=== PATIENT | female | born 1960 | race Caucasian/White ===

== ENCOUNTER 2024-08-29 14:31 | Inpatient (IN) | payer BC ==
[2024-08-29 14:34] LABS: Glucose,Whole Blood 197 mg/dL (70-110)
--- NOTE | 2024-08-29 14:38 | ED ---
General Adult HPI - General Chief complaint: Fall Stated complaint: fall Time Seen by Provider: 08/29/24 14:32 Source: patient, EMS, RN notes reviewed Mode of arrival: EMS Limitations: no limitations - History of Present Illness Initial comments: Patient is a 63-year-old female present to the emergency department for a fall by EMS. Patient was in her kitchen when she fell. Patient believes she may have passed out. Patient does take Coumadin. Patient has been feeling a little bit weak and shaky the last couple of days. No known fever however patient complains of feeling cold. Patient did have some mild hip discomfort earlier however states that has resolved. - Related Data Home Medications Medication Instructions Recorded Confirmed Losartan Potassium 100 mg PO DAILY 08/29/24 08/29/24 Semaglutide [Ozempic] 2 mg SQ JIMENEZ 08/29/24 08/29/24 Simvastatin 40 mg PO HS 08/29/24 08/29/24 Warfarin [Coumadin] 5 mg PO DAILY 08/29/24 08/29/24 atenoloL [Tenormin] 50 mg PO DAILY 08/29/24 08/29/24 cloNIDine HCL [Catapres] 0.3 mg PO DAILY 08/29/24 08/29/24 glyBURIDE [Diabeta] 5 mg PO BID 08/29/24 08/29/24 hydrALAZINE HCL [Apresoline] 50 mg PO BID-W/MEALS 08/29/24 08/29/24 hydroCHLOROthiazide 25 mg PO DAILY 08/29/24 08/29/24 metFORMIN HCL [Glucophage] 1,000 mg PO BID-W/MEALS 08/29/24 08/29/24 traZODone HCL [Trazodone HCl] 300 mg PO HS 08/29/24 08/29/24 Allergies Allergy/AdvReac Type Severity Reaction Status Date / Time codeine Allergy Itching Verified 08/29/24 17:51 naproxen Allergy Unknown Verified 08/29/24 17:51 Review of Systems ROS Statement: Those systems with pertinent positive or pertinent negative responses have been documented in the HPI. ROS Other: All systems not noted in ROS Statement are negative. Constitutional: Denies: fever Eyes: Denies: eye pain ENT: Denies: ear pain Respiratory: Denies: cough, dyspnea Cardiovascular: Denies: chest pain Endocrine: Denies: fatigue Neurological: Reports: as per HPI. Denies: headache Past Medical History Past Medical History: Atrial Fibrillation History of Any Multi-Drug Resistant Organisms: Unobtainable Past Surgical History: Unable to Obtain Past Psychological History: Unable to Obtain Smoking Status: Unknown if ever smoked Past Alcohol Use History: Unable to Obtain Past Drug Use History: Unable to Obtain General Exam Limitations: altered mental status General appearance: alert, other (Patient is shaking.) Head exam: Present: atraumatic, normocephalic Eye exam: Present: normal appearance, PERRL, EOMI ENT exam: Present: normal oropharynx, other (Right zygomatic region with mild area of erythema and mild tenderness) Neck exam: Present: normal inspection, tenderness (Mild diffuse tenderness. C- collar is in place.) Respiratory exam: Present: normal lung sounds bilaterally Cardiovascular Exam: Present: tachycardia GI/Abdominal exam: Present: soft. Absent: tenderness Extremities exam: Present: normal inspection. Absent: pedal edema, calf tenderness Neurological exam: Present: alert, CN II-XII intact. Absent: motor sensory deficit Expanded Neurological exam: Present: protecting the airway Patient oriented to: Present: person, place. Absent: time (Patient knows the president however unable to state the month or year) Speech: Present: fluid speech Cranial nerves: EOM's Intact: Normal Sensory exam: Upper Extremity Light Touch: Normal, Lower Extremity Light Touch: Normal Motor strength exam: RUE: 5, LUE: 5, RLE: 5, LLE: 5 Eye Response: (4) open spontaneously Motor Response: (6) obeys commands Verbal Response: (4) confused conversation Psychiatric exam: Present: normal affect, normal mood Skin exam: Present: normal color Course Vital Signs 08/29/24 14:32 Temperature 98.4 F Pulse Rate 97 Respiratory 18 Rate Blood Pressure 129/109 O2 Sat by Pulse 98 Oximetry EKG Findings - EKG Results: EKG: interpreted by ERMD (Q wave V1 and V2. Nonspecific T waves.), normal axis EKG shows: tachycardia, atrial fibrillation Medical Decision Making - Medical Decision Making Was pt. sent in by a medical professional or institution (, PA, SENIOR FUNCTIONAL ANALYST, urgent care, hospital, or longterm...) When possible be specific @ -No Did you speak to anyone other than the patient for history (EMS, parent, family, police, friend...)? What history was obtained from this source @ -Family arrives later and states patient actually has been having a little bit of confusion since yesterday, prior to the fall. Did you review nursing and triage notes (agree or disagree)? Why? @ -I reviewed and agree with nursing and triage notes Were old charts reviewed (outside hosp., previous admission, EMS record, old EKG, old radiological studies, urgent care reports/EKG's, longterm records)? Report findings @ -No old charts were reviewed Differential Diagnosis (chest pain, altered mental status, abdominal pain women, abdominal pain men, vaginal bleeding, weakness, fever, dyspnea, syncope, headache, dizziness, GI bleed, back pain, seizure, CVA, palpatations, mental health, musculoskeletal)? @ -Differential Altered Mental Status: Hypoglycemia, DKA, hypercapnia, ETOH, overdose, CO poisoning, trauma, myxedema coma, HTN encephalopathy, infection, encephalitis, psychosis, intercranial hemorrhage, hepatic encephalopathy, meningitis, CVA, this is not meant to be an all-inclusive list EKG interpreted by me (3pts min.). @ -As above X-rays interpreted by me (1pt min.). @ -Chest x-ray shows no acute process. CT interpreted by me (1pt min.). @ -CT scan of the brain and cervical spine and facial bones without traumatic abnormality U/S interpreted by me (1pt. min.). @ -None done What testing was considered but not performed or refused? (CT, X-rays, U/S, labs)? Why? @ -None What meds were considered but not given or refused? Why? @ -None Did you discuss the management of the patient with other professionals (professionals i.e. , PA, SENIOR FUNCTIONAL ANALYST, lab, RT, psych nurse, social science professor, entertainment lawyer, teacher, credit administration officer, telephonic nurse case manager)? Give summary @ -Case was discussed with Dr. Zhong who will admit covering hospital call Was smoking cessation discussed for >3mins.? @ -No Was critical care preformed (if so, how long)? @ -31 minutes critical care time Were there social determinants of health that impacted care today? How? (Homelessness, low income, unemployed, alcoholism, drug addiction, transportation, low edu. Level, literacy, decrease access to med. care, snf, rehab)? @ -No Was there de-escalation of care discussed even if they declined (Discuss DNR or withdrawal of care, Hospice)? DNR status @ -No What co-morbidities impacted this encounter? (DM, HTN, Smoking, COPD, CAD, Cancer, CVA, ARF, Chemo, Hep., AIDS, mental health diagnosis, sleep apnea, morbi d obesity)? @ -Patient has history of A-fib and is on Coumadin Was patient admitted / discharged? Hospital course, mention meds given and route, prescriptions, significant lab abnormalities, going to OR and other pertinent info. @ -Patient presents with confusion. This reportedly occurred prior to the fall. Patient has no traumatic injury and therefore will not be admitted to the hospital for any trauma service. Patient has mild confusion and elevated troponin. Patient will be admitted with consults with cardiology as well as neurology. In addition patient is RVR and Cardizem drip has been started. Undiagnosed new problem with uncertain prognosis? @ -No Drug Therapy requiring intensive monitoring for toxicity (Heparin, Nitro, Insulin, Cardizem)? @ -Cardizem drip Were any procedures done? @ -No Diagnosis/symptom? @ -Altered mental status, A-fib with RVR Acute, or Chronic, or Acute on Chronic? @ -Acute, acute Uncomplicated (without systemic symptoms) or Complicated (systemic symptoms)? @ -Complicated with original concern for potential traumatic injury Side effects of treatment? @ -No Exacerbation, Progression, or Severe Exacerbation? @ -No Poses a threat to life or bodily function? How? (Chest pain, [place], [place], pneumonia, PE, COPD, DKA, ARF, appy, cholecystitis, CVA, Diverticulitis, Homicidal, Suicidal, threat to staff... and all critical care pts) @ -Threat to neurological and cardiac function - Lab Data Result diagrams: 08/29/24 14:44 08/29/24 14:44 Lab Results 08/29/24 08/29/24 08/29/24 Range/Units 14:32 14:34 14:44 WBC 11.9 H (3.8-10.6) k/uL RBC 5.85 H (3.80-5.40) m/uL Hgb 17.4 H (11.4-16.0) gm/dL Hct 54.7 H (34.0-46.0) % MCV 93.4 (80.0-100.0) fL MCH 29.8 (25.0-35.0) pg MCHC 31.9 (31.0-37.0) g/dL RDW 14.4 (11.5-15.5) % Plt Count 271 (150-450) k/uL MPV 8.2 Neutrophils % 78 % Lymphocytes % 13 % Monocytes % 7 % Eosinophils % 1 % Basophils % 0 % Neutrophils # 9.3 H (1.3-7.7) k/uL Lymphocytes # 1.6 (1.0-4.8) k/uL Monocytes # 0.8 (0-1.0) k/uL Eosinophils # 0.1 (0-0.7) k/uL Basophils # 0.0 (0-0.2) k/uL PT (10.0-12.5) sec INR (<1.2) APTT (22.0-30.0) sec Sodium (137-145) mmol/L Potassium (3.5-5.1) mmol/L Chloride (98-107) mmol/L Carbon Dioxide (22-30) mmol/L Anion Gap mmol/L BUN (7-17) mg/dL Creatinine (0.52-1.04) mg/dL Est GFR (CKD-EPI)AfAm (>60 ml/min/1.73 sqM) Est GFR (CKD-EPI)NonAf (>60 ml/min/1.73 sqM) Glucose (74-99) mg/dL POC Glucose (mg/dL) 197 H (70-110) mg/dL POC Glu Second Officer ID Jerome Santana Calcium (8.4-10.2) mg/dL Magnesium (1.6-2.3) mg/dL Total Bilirubin (0.2-1.3) mg/dL AST (14-36) U/L ALT (4-34) U/L Alkaline Phosphatase (38-126) U/L Troponin I (0.000-0.034) ng/mL Total Protein (6.3-8.2) g/dL Albumin (3.5-5.0) g/dL Urine Color Yellow Urine Appearance Cloudy H (Clear) Urine pH 7.0 (5.0-8.0) Ur Specific [place] 1.026 (1.001-1.035) Urine Protein 3+ H (Negative) Urine Glucose (UA) Negative (Negative) Urine Ketones 1+ H (Negative) Urine Blood Small H (Negative) Urine Nitrite Negative (Negative) Urine Bilirubin Negative (Negative) Urine Urobilinogen <2.0 (<2.0) mg/dL Ur Leukocyte Esterase Moderate H (Negative) Urine RBC 14 H (0-5) /hpf Urine WBC 22 H (0-5) /hpf Ur Squamous Epith Cells 18 H (0-4) /hpf Urine Bacteria Rare H (None) /hpf Urine Mucus Rare H (None) /hpf Influenza Type A (PCR) (Not Detectd) Influenza Type B (PCR) (Not Detectd) RSV (PCR) (Not Detectd) SARS-CoV-2 (PCR) (Not Detectd) 08/29/24 08/29/24 08/29/24 Range/Units 14:44 14:44 14:44 WBC (3.8-10.6) k/uL RBC (3.80-5.40) m/uL Hgb (11.4-16.0) gm/dL Hct (34.0-46.0) % MCV (80.0-100.0) fL MCH (25.0-35.0) pg MCHC (31.0-37.0) g/dL RDW (11.5-15.5) % Plt Count (150-450) k/uL MPV Neutrophils % % Lymphocytes % % Monocytes % % Eosinophils % % Basophils % % Neutrophils # (1.3-7.7) k/uL Lymphocytes # (1.0-4.8) k/uL Monocytes # (0-1.0) k/uL Eosinophils # (0-0.7) k/uL Basophils # (0-0.2) k/uL PT 27.4 H (10.0-12.5) sec INR 2.8 H (<1.2) APTT 21.0 L (22.0-30.0) sec Sodium 137 (137-145) mmol/L Potassium 3.2 L (3.5-5.1) mmol/L Chloride 98 (98-107) mmol/L Carbon Dioxide 22 (22-30) mmol/L Anion Gap 17 mmol/L BUN 31 H (7-17) mg/dL Creatinine 0.89 (0.52-1.04) mg/dL Est GFR (CKD-EPI)AfAm 80 (>60 ml/min/1.73 sqM) Est GFR (CKD-EPI)NonAf 70 (>60 ml/min/1.73 sqM) Glucose 206 H (74-99) mg/dL POC Glucose (mg/dL) (70-110) mg/dL POC Glu Second Officer ID Calcium 9.7 (8.4-10.2) mg/dL Magnesium 1.6 (1.6-2.3) mg/dL Total Bilirubin 1.2 (0.2-1.3) mg/dL AST 30 (14-36) U/L ALT 23 (4-34) U/L Alkaline Phosphatase 83 (38-126) U/L Troponin I 0.114 H* (0.000-0.034) ng/mL Total Protein 7.7 (6.3-8.2) g/dL Albumin 4.1 (3.5-5.0) g/dL Urine Color Urine Appearance (Clear) Urine pH (5.0-8.0) Ur Specific [place] (1.001-1.035) Urine Protein (Negative) Urine Glucose (UA) (Negative) Urine Ketones (Negative) Urine Blood (Negative) Urine Nitrite (Negative) Urine Bilirubin (Negative) Urine Urobilinogen (<2.0) mg/dL Ur Leukocyte Esterase (Negative) Urine RBC (0-5) /hpf Urine WBC (0-5) /hpf Ur Squamous Epith Cells (0-4) /hpf Urine Bacteria (None) /hpf Urine Mucus (None) /hpf Influenza Type A (PCR) (Not Detectd) Influenza Type B (PCR) (Not Detectd) RSV (PCR) (Not Detectd) SARS-CoV-2 (PCR) (Not Detectd) 08/29/24 Range/Units 15:40 WBC (3.8-10.6) k/uL RBC (3.80-5.40) m/uL Hgb (11.4-16.0) gm/dL Hct (34.0-46.0) % MCV (80.0-100.0) fL MCH (25.0-35.0) pg MCHC (31.0-37.0) g/dL RDW (11.5-15.5) % Plt Count (150-450) k/uL MPV Neutrophils % % Lymphocytes % % Monocytes % % Eosinophils % % Basophils % % Neutrophils # (1.3-7.7) k/uL Lymphocytes # (1.0-4.8) k/uL Monocytes # (0-1.0) k/uL Eosinophils # (0-0.7) k/uL Basophils # (0-0.2) k/uL PT (10.0-12.5) sec INR (<1.2) APTT (22.0-30.0) sec Sodium (137-145) mmol/L Potassium (3.5-5.1) mmol/L Chloride (98-107) mmol/L Carbon Dioxide (22-30) mmol/L Anion Gap mmol/L BUN (7-17) mg/dL Creatinine (0.52-1.04) mg/dL Est GFR (CKD-EPI)AfAm (>60 ml/min/1.73 sqM) Est GFR (CKD-EPI)NonAf (>60 ml/min/1.73 sqM) Glucose (74-99) mg/dL POC Glucose (mg/dL) (70-110) mg/dL POC Glu Second Officer ID Calcium (8.4-10.2) mg/dL Magnesium (1.6-2.3) mg/dL Total Bilirubin (0.2-1.3) mg/dL AST (14-36) U/L ALT (4-34) U/L Alkaline Phosphatase (38-126) U/L Troponin I (0.000-0.034) ng/mL Total Protein (6.3-8.2) g/dL Albumin (3.5-5.0) g/dL Urine Color Urine Appearance (Clear) Urine pH (5.0-8.0) Ur Specific [place] (1.001-1.035) Urine Protein (Negative) Urine Glucose (UA) (Negative) Urine Ketones (Negative) Urine Blood (Negative) Urine Nitrite (Negative) Urine Bilirubin (Negative) Urine Urobilinogen (<2.0) mg/dL Ur Leukocyte Esterase (Negative) Urine RBC (0-5) /hpf Urine WBC (0-5) /hpf Ur Squamous Epith Cells (0-4) /hpf Urine Bacteria (None) /hpf Urine Mucus (None) /hpf Influenza Type A (PCR) Not Detected (Not Detectd) Influenza Type B (PCR) Not Detected (Not Detectd) RSV (PCR) Not Detected (Not Detectd) SARS-CoV-2 (PCR) Not Detected (Not Detectd) Critical Care Time Critical Care Time: Yes Disposition Clinical Impression: Atrial fibrillation with RVR, Altered mental status Disposition: ADMITTED IP TO THIS [facility] Condition: Serious Is patient prescribed a controlled substance at d/c from ED?: No Referrals: Jane Abreu MD [Primary Care Provider] - 1-2 days Time of Disposition: 18:04
[2024-08-29 14:53] LABS: Basophils % (A) 0 %; Eosinophils # (A) 0.1 k/uL (0-0.7); Eosinophils % (A) 1 %; HCT 54.7 % (34.0-46.0); HGB 17.4 gm/dL (11.4-16.0); Lymphocytes # (A) 1.6 k/uL (1.0-4.8); Lymphocytes % (A) 13 %; MCH 29.8 pg (25.0-35.0); MCHC 31.9 g/dL (31.0-37.0); MCV 93.4 fL (80.0-100.0); Mean Platelet Volume 8.2; Monocytes # (A) 0.8 k/uL (0-1.0); Monocytes % (A) 7 %; Neutrophils # (A) 9.3 k/uL (1.3-7.7); Neutrophils % (A) 78 %; Platelet Count 271 k/uL (150-450); RBC 5.85 m/uL (3.80-5.40); RDW 14.4 % (11.5-15.5); WBC 11.9 k/uL (3.8-10.6)
--- NOTE | 2024-08-29 14:57 | CT ---
EXAMINATION TYPE: CT brain reg wo con DATE OF EXAM: 08/29/2024 COMPARISON: None CLINICAL INDICATION: Female, 63 years old with history of fall; [facility], Code coag. Fall on thinners. AMS . TECHNIQUE: CT scan of the head and cervical spine are performed without contrast. CT DLP: Combined DLP of mGycm CT CTDI: mGy Automated exposure control for dose reduction was used. Findings: Head CT: Ventricles, basal cisterns and sulci over convexities within normal limits and there is no mass, mass effect or shift of midline structures. No abnormal density is seen throughout the brain parenchyma and there is no acute intra or extra-axia l hemorrhage. Posterior fossa including the brainstem, fourth ventricle and cerebellar pontine angles are grossly n ormal. The intraorbital contents appear normal and symmetric. Visualized paranasal sinuses are well aerated. CT cervical spine: Craniovertebral junction relationships and prevertebral soft tissues are normal. The cervical vertebral segments are normal in height and alignment and there is no fracture subluxati on. The disc spaces are well-maintained in height and there is no significant degenerative disc disease. The bony cervical canal is widely patent and there is no bony encroachment of the neural foramina. The paraspinal soft tissues unremarkable. IMPRESSION: 1. Head CT: No acute bleed or mass effect. 2. CT cervical spine: No acute trauma. [facility], , 08/29/2024 2:55 PM
--- NOTE | 2024-08-29 15:01 | CT ---
EXAMINATION TYPE: CT facial bones wo con DATE OF EXAM: 08/29/2024 COMPARISON: CLINICAL INDICATION: Female, 63 years old with history of fall; [facility], Code coag. Fall on thinners. AMS . TECHNIQUE: CT scan of the sinuses is performed without contrast, axial images are obtained, coronal reformatted images are also reviewed. CT DLP: Combined DLP of 1075.[address] CTDI: mGy Automated exposure control for dose reduction was used. FINDINGS: The facial bones are intact and there is no fracture or focal intraosseous abnormality. There is a mucous retention cyst or polyp in the left maxillary sinus indicating mild chronic maxilla ry sinusitis. Remaining paranasal sinuses are well aerated. There are no air-fluid levels. The intraorbital contents are normal symmetric. The mastoid air cells and middle ear cavities are well aerated. IMPRESSION: No evidence of facial bone trauma. [facility], , 08/29/2024 2:58 PM
[2024-08-29 15:04] LABS: ALT 23 U/L (4-34); AST 30 U/L (14-36); African American GFR (CKD) 80 (>60 ml/min/1.73 sqM); Albumin 4.1 g/dL (3.5-5.0); Alkaline Phosphatase 83 U/L (38-126); Anion Gap 17 mmol/L; Blood Urea Nitrogen 31 mg/dL (7-17); Calcium 9.7 mg/dL (8.4-10.2); Carbon Dioxide 22 mmol/L (22-30); Chloride 98 mmol/L (98-107); Glucose 206 mg/dL (74-99); Magnesium 1.6 mg/dL (1.6-2.3); Non-African American GFR(CKD) 70 (>60 ml/min/1.73 sqM); Potassium 3.2 mmol/L (3.5-5.1); Sodium 137 mmol/L (137-145); Total Bilirubin 1.2 mg/dL (0.2-1.3); Total Protein 7.7 g/dL (6.3-8.2)
[2024-08-29 15:09] LABS: INR 2.8 (<1.2); Prothrombin Time 27.4 sec (10.0-12.5)
--- NOTE | 2024-08-29 15:19 | XR ---
EXAMINATION TYPE: XR chest 1V portable DATE OF EXAM: 08/29/2024 COMPARISON: NONE CLINICAL INDICATION: Female, 63 years old with history of syncope; TECHNIQUE: Single AP portable, upright view of the chest is obtained. FINDINGS: There is no focal air space opacity, pleural effusion, or pneumothorax seen. The cardiac silhouette size is upper limits of normal. Dextroconvex scoliosis centered in the mid to lower thorac ic spine is present. IMPRESSION: No acute process. [facility], , 08/29/2024 3:17 PM
--- NOTE | 2024-08-29 15:21 | XR ---
EXAMINATION TYPE: XR pelvis AP view DATE OF EXAM: 08/29/2024 3:14 PM COMPARISON: None. CLINICAL INDICATION: Female, 63 years old with history of syncope, TECHNIQUE: A single AP view of the pelvis is obtained. FINDINGS: There is no acute displaced fracture evident in the pelvis. The hip joints are symmetric and and within normal limits. Pubic symphysis is intact. Lucency from overlying bowel gas makes evalu ation slightly suboptimal. Multiple coils overlie the left pelvis likely from prior hernia repair cathie bogdan. IMPRESSION: There is no acute displaced fracture in the pelvis. [facility], , 08/29/2024 3:19 PM
[2024-08-29 16:24] LABS: Influenza A Not Detected (Not Detectd); Influenza B Not Detected (Not Detectd); RSV Not Detected (Not Detectd)
[2024-08-29 16:49] LABS: Appearance,Urine Cloudy (Clear); Bacteria,Urine Rare /hpf; Bilirubin,Urine Negative (Negative); Blood,Urine Small (Negative); Color,Urine Yellow; Glucose,Urine (UA) Negative (Negative); Ketones,Urine 1+ (Negative); Leukocyte Esterase,Urine Moderate (Negative); Mucus,Urine Rare /hpf; Nitrite,Urine Negative (Negative); Protein,Urine 3+ (Negative); RBC,Urine 14 /hpf (0-5); Specific Gravity,Urine 1.026 (1.001-1.035); Squamous Epithelial Cell,Urine 18 /hpf (0-4); Urobilinogen,Urine <2.0 mg/dL (<2.0); WBC,Urine 22 /hpf (0-5)
[2024-08-29] MEDS: DILTIAZEM 125 MG in SODIUM CHLORIDE 0.9% 100 ML IV SCH (17:49)
[2024-08-29] MEDS ORDERED: NALOXONE 0.4 MG/ML 1 ML VIAL IV PRN (18:04)
[2024-08-29] MEDS: ATORVASTATIN 20 MG TAB PO SCH (21:51)
[2024-08-29] MEDS: traZODone HCL 100 MG TAB PO SCH (21:52)
[2024-08-29] MEDS: glipiZIDE 5 MG TAB PO SCH (21:53)
[2024-08-29] MEDS: ONDANSETRON 4 MG/2 ML VIAL IVP PRN (22:37)
[2024-08-29] MEDS: ACETAMINOPHEN TAB 325 MG TAB PO PRN (22:41)
[2024-08-30 05:16] LABS: Glucose,Whole Blood 159 mg/dL (70-110)
[2024-08-30] MEDS: hydroCHLOROthiazide 25 MG TAB PO SCH (08:20)
[2024-08-30] MEDS: cloNIDine HCL 0.1 MG TAB PO SCH (08:20)
[2024-08-30] MEDS: hydrALAZINE HCL 50 MG TAB PO SCH (08:21)
[2024-08-30] MEDS: atenoloL 50 MG TAB PO SCH (08:21)
[2024-08-30] MEDS: LOSARTAN 50 MG TAB PO SCH (08:21)
[2024-08-30] MEDS: metFORMIN 500 MG TAB PO SCH (08:24)
[2024-08-30 08:28] LABS: Glucose,Whole Blood 155 mg/dL (70-110)
[2024-08-30 08:48] LABS: Basophils % (A) 0 %; Eosinophils # (A) 0.2 k/uL (0-0.7); Eosinophils % (A) 2 %; HCT 45.3 % (34.0-46.0); Hypochromasia Marked; Lymphocytes # (A) 1.5 k/uL (1.0-4.8); Lymphocytes % (A) 14 %; MCH 29.1 pg (25.0-35.0); MCHC 29.9 g/dL (31.0-37.0); MCV 97.2 fL (80.0-100.0); Mean Platelet Volume 8.1; Monocytes # (A) 0.7 k/uL (0-1.0); Monocytes % (A) 7 %; Neutrophils # (A) 8.2 k/uL (1.3-7.7); Neutrophils % (A) 76 %; Platelet Count 291 k/uL (150-450); RBC 4.65 m/uL (3.80-5.40); RDW 14.4 % (11.5-15.5); WBC 10.7 k/uL (3.8-10.6)
[2024-08-30 08:57] LABS: HGB 13.5 gm/dL (11.4-16.0)
[2024-08-30 09:20] LABS: ALT 26 U/L (4-34); AST 31 U/L (14-36); African American GFR (CKD) 82 (>60 ml/min/1.73 sqM); Albumin 3.7 g/dL (3.5-5.0); Alkaline Phosphatase 67 U/L (38-126); Anion Gap 11 mmol/L; Blood Urea Nitrogen 41 mg/dL (7-17); Calcium 8.9 mg/dL (8.4-10.2); Carbon Dioxide 27 mmol/L (22-30); Chloride 99 mmol/L (98-107); Glucose 161 mg/dL (74-99); Non-African American GFR(CKD) 71 (>60 ml/min/1.73 sqM); Potassium 3.5 mmol/L (3.5-5.1); Sodium 137 mmol/L (137-145); Total Bilirubin 1.2 mg/dL (0.2-1.3)
[2024-08-30 09:44] LABS: Glucose,Whole Blood 152 mg/dL (70-110)
[2024-08-30] MEDS ORDERED: DEXTROSE 50% SYRINGE 50 ML IVP PRN (09:48)
--- NOTE | 2024-08-30 10:08 | CT ---
EXAMINATION TYPE: CT brain wo con DATE OF EXAM: 08/30/2024 HISTORY: UTI, mental status changes yesterday, confusion this morning. Last known well x [address] DLP: 1201.6 mGycm. Automated Exposure Control for Dose Reduction was Utilized. TECHNIQUE: CT scan of the head is performed without contrast. COMPARISON: CT head one day earlier. FINDINGS: There is no acute intracranial hemorrhage or midline shift identified. There is mild diff use ventricular and sulcal prominence redemonstrated. There is mild low-attenuation in the periventr icular white matter redemonstrated. There is 1.6 cm mucous retention cyst or polyp in the inferior le ft maxillary sinus. Remainder of the paranasal sinuses are clear. Globes are intact bilaterally. IMPRESSION: No acute intracranial hemorrhage or midline shift. No significant change from one day kasandra shaffer. [facility], , 08/30/2024 10:06 AM
--- NOTE | 2024-08-30 10:24 | CT ---
EXAMINATION TYPE: CODE STROKE: CTA head neck DATE OF EXAM: 08/30/2024 10:16 AM COMPARISON: None. CLINICAL INDICATION: Female, 63 years old with history of Neuro deficit, acute, stroke suspected, UTI , mental status changes yesterday, confusion this morning. Last known well x 15 minutes ago TECHNIQUE: CTA scan is performed with axial images are obtained, coronal and sagittal reformatted soniya ges are reviewed. 3-D reconstructed images are created on an independent workstation and reviewed. [facility] images are reviewed. NASCET criteria was used in interpretation of this exam? Contrast used:65 mL of Isovue 370 without and with IV Contrast, (none if empty) Oral contrast used: (none if empty) CT DLP: 451.5 mGycm, Automated exposure control for dose reduction was used. FINDINGS: Carotid/Vascular Structures: There is a 3 vessel arch. Common carotid arteries bifurcate into internal and external carotid arteries without significant phoebe w limiting stenosis. Vertebral arteries are codominant. Internal carotid arteries and vertebral arteries are patent to the skull base. Cervical of [place]: Vertebral basilar system appears normal. Posterior cerebral vasculature is unrema rkable. Internal carotid arteries bifurcate normally into A1 and M1 segments. A2 segments are normal. The anterior communicating artery is patent. There may be some mild fusiform prominence of the anteri or communicating artery measuring 0.33 cm. The right posterior communicating artery is absent. The left posterior communicating artery is patent. IMPRESSION: 1. No flow-limiting stenosis bilateral carotid bifurcations. 2. There is some fusiform prominence of the anterior communicating artery. 3. [place] of [place] otherwise appears within normal limits [facility], , 08/30/2024 10:21 AM
[2024-08-30] MEDS: NOREPINEPHRINE 4 MG in SODIUM CHLORIDE 0.9% 250 ML IV SCH (10:26)
[2024-08-30 10:50] LABS: Glucose,Whole Blood 139 mg/dL (70-110)
--- NOTE | 2024-08-30 11:17 | P.CRDCN ---
History of Present Illness Consult date: 08/30/24 Consult reason: atrial fibrillation History of present illness: This is this is a 63-year-old female patient of Dr. TERA Ying with past medical history of hypertension, chronic atrial fibrillation, dyslipidemia, diabetes, obesity. We have been asked to evaluate the patient for atrial fibrillation. Patient presented to the hospital yesterday. According to the patient's son. She had a fall and hit her head on the stove. She lives at home with her but he is a catering truck operator and is not home very often. Earlier in the week on Monday, the son talked to her and she was having nausea and vomiting and they were going to wait 1 more day before they took her to the doctor. She was also complaining of feeling cold. She had a recent muscle tear in June and had not been that active. He also states that there was a medication she was not able to obtain over the weekend but apparently picked up on Monday. Patient's mental status seemed to be off a little bit yesterday but the son states that she seems to be much improved today. Just prior to our arrival, patient became unresponsive according to her nurse. She had been awake and alert 15 minutes prior to this episode. Her systolic blood pressure dropped down to 70. She was given fluid bolus and her systolic pressure was then 89. Blood sugar was 152. There was concern that she was staring to the left side. When she had the unresponsive episode, her son thought that she was just sleeping. Since arrival, patient has been alert and oriented except that she cannot recall the year. This continues to be the case. Patient went for for stat CT of the brain. Subsequently the systolic blood pressure was 70/36 and orders were given for Levophed and patient was to be transferred to the CCU. Patient apparently has had no complaints of chest pain and no history of CABG or stent to the heart. Son states her equilibrium has been off for about a year. Patient has been started on Cardizem drip which was discontinued. We have also discontinued clonidine and hydralazine. -EKG: Atrial fibrillation with ventricular rate of 153 bpm. -Chest x-ray: No acute process. -Pelvic x-ray: No acute fracture. -CT facial bones: No facial bone trauma. -CT brain and cervical spine: No acute bleed or mass effect. No acute trauma to the cervical spine. -Laboratory studies: WBC 11 point, INR 2.8. Sodium 137, potassium 3.2, BUN 31 creatinine 0.89. Troponins 0.114, 0.098, 0.069. Cepheid viral panel negative. -Home cardiac medications: Atenolol 50 mg daily, clonidine 0.3 mg daily, hydralazine 50 mg twice daily, hydrochlorothiazide 25 mg daily, losartan 100 mg daily, simvastatin 40 mg at bedtime, warfarin 5 mg daily. -Lexiscan Cardiolite stress test performed in the office in 2014 was normal myocardial perfusion imaging with normal ejection fraction. -Echocardiogram performed in the office in 2014 revealed normal LV size and function, moderate concentric hypertrophy. Moderate mitral regurgitation, mild to moderate tricuspid regurgitation. Review Of Systems: At the time of my exam: CONSTITUTIONAL: Denies fever or chills. HEENT: Denies blurred vision, vision changes, or eye pain. Denies hemoptysis CARDIOVASCULAR: Denies chest pain. Denies orthopnea. Denies PND. Denies palpitations RESPIRATORY: Denies shortness of breath. GASTROINTESTINAL: Denies abdominal pain. Denies nausea or vomiting. HEMATOLOGIC: Denies bleeding disorders. GENITOURINARY: Denies any blood in urine. SKIN: Denies puritis. Denies rash. Physical examination: Gen: This is a 63-year-old female in no acute distress VS: reviewed HEENT: Head is atraumatic, normocephalic. Pupils equal, round. Sclerae is anicteric. NECK: Supple. No JVD. LUNGS: Clear to auscultation. No wheezes or rhonchi. No intercostal retractions. HEART: Giller rate and rhythm. Systolic murmur. ABDOMEN: Soft No tenderness. EXTREMITIES: No pedal edema. No calf tenderness. NEUROLOGICAL: Patient is awake, alert and oriented x3. Assessment: Chronic atrial fibrillation with RVR, currently rate controlled Unresponsive episode possible CVA Fall at home with head injury Hypertension Dyslipidemia Diabetes mellitus type 2 Obesity with BMI of 30 Plan: Resume patient's home cardiac medications but hold all antihypertensive medications Hold on heparin due to possible intracranial bleed Agree with starting Levophed and transfer patient to ICU Obtain 2-D echocardiogram and Doppler study to assess cardiac structure and function Further recommendations to follow based upon clinical course Thank you kindly for this consultation. Nurse practitioner note has been reviewed, I agree with documented findings and plan of care. Patient was seen and examined. Past Medical History Past Medical History: Atrial Fibrillation History of Any Multi-Drug Resistant Organisms: Unobtainable Past Surgical History: Unable to Obtain Past Psychological History: Unable to Obtain Smoking Status: Unknown if ever smoked Past Alcohol Use History: Unable to Obtain Past Drug Use History: Unable to Obtain Medications and Allergies Home Medications Medication Instructions Recorded Confirmed Type Losartan Potassium 100 mg PO DAILY 08/29/24 08/29/24 History Semaglutide [Ozempic] 2 mg SQ JIMENEZ 08/29/24 08/29/24 History Simvastatin 40 mg PO HS 08/29/24 08/29/24 History Warfarin [Coumadin] 5 mg PO DAILY 08/29/24 08/29/24 History atenoloL [Tenormin] 50 mg PO DAILY 08/29/24 08/29/24 History cloNIDine HCL [Catapres] 0.3 mg PO DAILY 08/29/24 08/29/24 History glyBURIDE [Diabeta] 5 mg PO BID 08/29/24 08/29/24 History hydrALAZINE HCL [Apresoline] 50 mg PO BID-W/MEALS 08/29/24 08/29/24 History hydroCHLOROthiazide 25 mg PO DAILY 08/29/24 08/29/24 History metFORMIN HCL [Glucophage] 1,000 mg PO BID-W/MEALS 08/29/24 08/29/24 History traZODone HCL [Trazodone HCl] 300 mg PO HS 08/29/24 08/29/24 History Allergies Allergy/AdvReac Type Severity Reaction Status Date / Time codeine Allergy Itching Verified 08/29/24 17:51 naproxen Allergy Unknown Verified 08/29/24 17:51 Physical Exam Vitals: Vital Signs Temp Pulse Resp BP Pulse Ox 08/30/24 07:24 98.4 F 102 H 20 145/79 97 08/30/24 05:15 98.4 F 104 H 19 138/84 98 08/30/24 02:24 99 15 158/91 98 08/30/24 00:44 112 H 19 141/95 93 L 08/29/24 23:44 120 H 19 124/65 97 08/29/24 21:58 98.6 F 108 H 19 170/102 96 08/29/24 19:38 99.1 F 108 H 20 160/111 97 08/29/24 18:00 112 H 18 163/101 98 08/29/24 16:00 132 H 18 98 08/29/24 15:34 150 H 18 114/76 98 08/29/24 14:32 98.4 F 97 18 129/109 98 Intake and Output 08/29/24 08/30/24 08/30/24 22:59 06:59 14:59 Intake Total 22.25 86.5 Balance . 86.5 Intake: Intake, IV Titration 86.5 Amount Diltiazem 125 mg In 86.5 Sodium Chloride 0.9% 100 ml @ 5 MG/HR 5 mls/hr IV .Q24H [facility] Rx#:[id number] Results 08/30/24 08:34 08/30/24 08:34 Cardiac Enzymes 08/29/24 08/29/24 08/29/24 Range/Units 14:44 14:44 20:41 AST 30 (14-36) U/L Troponin I 0.114 H* 0.098 H* (0.000-0.034) ng/mL 08/30/24 Range/Units 00:14 AST (14-36) U/L Troponin I 0.069 H* (0.000-0.034) ng/mL Coagulation 08/29/24 Range/Units 14:44 PT 27.4 H (10.0-12.5) sec APTT 21.0 L (22.0-30.0) sec CBC 08/29/24 Range/Units 14:44 WBC 11.9 H (3.8-10.6) k/uL RBC 5.85 H (3.80-5.40) m/uL Hgb 17.4 H (11.4-16.0) gm/dL Hct 54.7 H (34.0-46.0) % Plt Count 271 (150-450) k/uL Comprehensive Metabolic Panel 08/29/24 Range/Units 14:44 Sodium 137 (137-145) mmol/L Potassium 3.2 L (3.5-5.1) mmol/L Chloride 98 (98-107) mmol/L Carbon Dioxide 22 (22-30) mmol/L BUN 31 H (7-17) mg/dL Creatinine 0.89 (0.52-1.04) mg/dL Glucose 206 H (74-99) mg/dL Calcium 9.7 (8.4-10.2) mg/dL AST 30 (14-36) U/L ALT 23 (4-34) U/L Alkaline Phosphatase 83 (38-126) U/L Total Protein 7.7 (6.3-8.2) g/dL Albumin 4.1 (3.5-5.0) g/dL Current Medications Generic Name Dose Route Start Last Admin Trade Name Freq PRN Reason Stop Dose Admin Acetaminophen 650 mg 08/29/24 22:24 08/29/24 22:41 Acetaminophen Tab 325 Mg Tab PO 650 mg Q6HR PRN Administration Fever and/ or Pain Atenolol 50 mg 08/30/24 09:00 Atenolol 50 Mg Tab PO DAILY [facility] Atorvastatin Calcium 20 mg 08/29/24 21:00 08/29/24 21:51 Atorvastatin 20 Mg Tab PO 20 mg HS [facility] Administration Clonidine 0.3 mg 08/30/24 09:00 Clonidine Hcl 0.1 Mg Tab PO DAILY [facility] Glipizide 5 mg 08/29/24 21:00 08/29/24 21:53 Glipizide 5 Mg Tab PO 5 mg BID [facility] Administration Hydralazine HCl 50 mg 08/30/24 07:30 Hydralazine Hcl 50 Mg Tab PO BID-W/MEALS [facility] Hydrochlorothiazide 25 mg 08/30/24 09:00 Hydrochlorothiazide 25 Mg Tab PO DAILY [facility] Diltiazem HCl 125 mg/ Sodium 125 mls @ 10 mls/hr 08/29/24 16:45 08/30/24 06:55 Chloride IV 10 mg/hr .[id number] [facility] 10 mls/hr Administration 10 MG/HR Losartan Potassium 100 mg 08/30/24 09:00 Losartan 50 Mg Tab PO DAILY [facility] Metformin HCl 1,000 mg 08/30/24 07:30 Metformin 500 Mg Tab PO BID-W/MEALS [facility] Naloxone HCl 0.2 mg 08/29/24 18:04 Naloxone 0.4 Mg/Ml 1 Ml Vial IV Q2M PRN Opioid Reversal Ondansetron HCl 4 mg 08/29/24 22:24 08/29/24 22:37 Ondansetron 4 Mg/2 Ml Vial IVP 4 mg Q6HR PRN Administration Nausea And Vomiting Trazodone HCl 300 mg 08/29/24 21:00 08/29/24 21:52 Trazodone Hcl 100 Mg Tab PO 300 mg HS SHE[facility] Administration Intake and Output 08/29/24 08/30/24 08/30/24 22:59 06:59 14:59 Intake Total . 86.5 Balance . 86.5 Intake: Intake, IV Titration 86.5 Amount Diltiazem 125 mg In 86.5 Sodium Chloride 0.9% 100 ml @ 5 MG/HR 5 mls/hr IV .Q24H [facility] Rx#:[id number] 08/29/24 14:44 08/29/24 14:44
[2024-08-30 11:52] LABS: Appearance,Urine Cloudy (Clear); Bacteria,Urine Rare /hpf; Bilirubin,Urine Negative (Negative); Blood,Urine Small (Negative); Color,Urine Yellow; Glucose,Urine (UA) Trace (Negative); Hyaline Casts,Urine 11 /lpf (0-2); Ketones,Urine Trace (Negative); Leukocyte Esterase,Urine Negative (Negative); Mucus,Urine Moderate /hpf; Nitrite,Urine Negative (Negative); Protein,Urine 3+ (Negative); RBC,Urine 5 /hpf (0-5); Squamous Epithelial Cell,Urine <1 /hpf (0-4); Urobilinogen,Urine <2.0 mg/dL (<2.0); WBC,Urine 7 /hpf (0-5)
[2024-08-30] MEDS: SODIUM CHLORIDE 0.9% 1,000 ML IV SCH (12:15)
[2024-08-30] MEDS ORDERED: Potassium Replacement Protocol 1 EACH MISC MISCELLANE PRN (12:16)
[2024-08-30] MEDS: INSULIN LISPRO (HumaLOG) 100 UNIT/ML 10 mL VL SQ SCH (12:18)
[2024-08-30] MEDS: SODIUM CHLORIDE 0.9% 500 ML 500 ML IV ONE (12:18)
--- NOTE | 2024-08-30 13:23 | P.CNPUL ---
History of Present Illness Consult date: 08/30/24 Requesting physician: Belgica Baptiste Reason for consult: other (Hypotension and ICU management) Chief complaint: Altered mental status History of present illness: This is a 63-year-old female with history of multiple medical problems including hypertension, chronic atrial fibrillation, type 2 diabetes, patient was admitted yesterday from the emergency room, she was supposed to be admitted to the cardiac floor, however patient developed hypotension and altered mental status while in the ER, hence patient was admitted to the ICU instead and I was asked to see her on consultation. The patient herself is not a great historian, however I was able to obtain most of the information from the chart. Apparently the patient had a recent fall and hit her head on the stove, and she also had episodes of nausea, and episodes of altered mental status. Son was concerned about her mental status, when she arrived to the ER, patient became unresponsive according to the nurse. Her systolic pressure at the time was in the 70s. Patient received fluid boluses in the ER, and the systolic pressure came up to 89. Her sugar was normal. Patient was noted to have some staring to the left side, patient received medications for her atrial fibrillation with RVR, she was also given Cardizem at 1 point, however her blood pressure came back down to 70/36. Then patient was placed on norepinephrine and transferred to the ICU. During my evaluation the patient was on norepinephrine at 0.02 mcg/kg/min, she had no specific complaints, however she seems to be a little confused, she did not know what city she lives in, she did not know the name of the president, and she did not know the year. But she recognized her family members at bedside and was able to state the names. Apparently the patient received earlier clonidine and hydralazine as well as Cardizem for high blood pressure, but this has been discontinued shortly before she came back to the ICU. Her EKG showed atrial fibrillation with RVR rate of 150 chest x-ray showed no evidence of active disease CT of the brain and cervical spine was basically unremarkable. Her labs showed relatively normal electrolytes except for low potassium of 3.2 troponin was a bit high her viral panel was negative. Echocardiogram from 2013 showed LV function to be normal. And she also had moderate mitral regurgitation at the time. Patient was seen since admission by cardiology and she was seen by neurology. Review of Systems REVIEW OF SYSTEMS: According to the patient CONSTITUTIONAL: Negative. EYES: Negative. ENT: Negative. CARDIAC: Negative. Denies any chest pain orthopnea or PND PULMONARY: Denies any shortness of breath GI: Negative. GENITOURINARY: Negative. MUSCULOSKELETAL: Negative. SKIN: Negative. NEUROPSYCH: As noted in HPI ENDOCRINE: Negative. HEMATOLOGIC: Negative. Past Medical History Past Medical History: Atrial Fibrillation History of Any Multi-Drug Resistant Organisms: Unobtainable Past Surgical History: Unable to Obtain Past Psychological History: Unable to Obtain Smoking Status: Unknown if ever smoked Past Alcohol Use History: Unable to Obtain Past Drug Use History: Unable to Obtain Medications and Allergies Home Medications Medication Instructions Recorded Confirmed Type Losartan Potassium 100 mg PO DAILY 08/29/24 08/29/24 History Semaglutide [Ozempic] 2 mg SQ JIMENEZ 08/29/24 08/29/24 History Simvastatin 40 mg PO HS 08/29/24 08/29/24 History Warfarin [Coumadin] 5 mg PO DAILY 08/29/24 08/29/24 History atenoloL [Tenormin] 50 mg PO DAILY 08/29/24 08/29/24 History cloNIDine HCL [Catapres] 0.3 mg PO DAILY 08/29/24 08/29/24 History glyBURIDE [Diabeta] 5 mg PO BID 08/29/24 08/29/24 History hydrALAZINE HCL [Apresoline] 50 mg PO BID-W/MEALS 08/29/24 08/29/24 History hydroCHLOROthiazide 25 mg PO DAILY 08/29/24 08/29/24 History metFORMIN HCL [Glucophage] 1,000 mg PO BID-W/MEALS 08/29/24 08/29/24 History traZODone HCL [Trazodone HCl] 300 mg PO HS 08/29/24 08/29/24 History Allergies Allergy/AdvReac Type Severity Reaction Status Date / Time codeine Allergy Itching Verified 08/29/24 17:51 naproxen Allergy Unknown Verified 08/29/24 17:51 Physical Exam Vitals: Vital Signs Temp Pulse Resp BP Pulse Ox 08/30/24 12:15 65 84/54 97 08/30/24 12:00 68 17 84/56 97 08/30/24 11:45 59 L 90/47 97 08/30/24 11:30 56 L 91/58 98 08/30/24 11:15 97.9 F 60 19 87/58 96 08/30/24 11:00 95/54 08/30/24 10:45 95/54 08/30/24 10:35 62 20 95/54 99 08/30/24 10:30 61 8 L 80/45 94 L 08/30/24 10:17 68 20 73/32 98 08/30/24 10:15 70 10 L 70/36 81 L 08/30/24 10:05 66 20 70/36 98 08/30/24 10:00 85/48 08/30/24 09:45 69 27 H 85/48 93 L 08/30/24 09:34 72 20 89/47 08/30/24 09:30 72 17 131/79 89 L 08/30/24 09:15 73 9 L 131/79 96 08/30/24 09:00 70 0 L 131/79 97 08/30/24 08:45 83 7 L 131/79 97 08/30/24 08:30 93 11 L 131/79 96 08/30/24 08:25 107 H 20 131/79 99 08/30/24 08:15 112 H 24 145/79 96 08/30/24 08:00 98 20 145/79 87 L 08/30/24 07:45 98 13 145/79 87 L 08/30/24 07:30 101 H 12 145/79 95 08/30/24 07:24 98.4 F 102 H 20 145/79 97 08/30/24 07:15 93 16 138/84 98 08/30/24 07:00 96 2 L 138/84 97 08/30/24 06:45 105 H 17 138/84 97 08/30/24 06:30 101 H 3 L 138/84 97 08/30/24 06:15 92 18 138/84 99 08/30/24 06:00 98 18 138/84 98 08/30/24 05:45 103 H 18 138/84 96 08/30/24 05:30 95 16 138/84 98 08/30/24 05:15 98.4 F 101 H 4 L 138/84 98 08/30/24 05:00 110 H 19 158/91 99 08/30/24 04:45 105 H 20 158/91 97 08/30/24 04:30 96 18 158/91 95 08/30/24 04:15 110 H 22 158/91 93 L 08/30/24 04:00 110 H 17 158/91 94 L 08/30/24 03:45 107 H 18 158/91 93 L 08/30/24 03:30 104 H 11 L 158/91 97 08/30/24 03:15 98 18 158/91 91 L 08/30/24 03:00 112 H 10 L 158/91 99 08/30/24 02:45 101 H 16 158/91 99 08/30/24 02:30 109 H 20 158/91 97 08/30/24 02:24 99 15 158/91 98 08/30/24 02:15 106 H 19 158/91 98 08/30/24 02:00 102 H 8 L 141/95 88 L 08/30/24 01:45 110 H 0 L 141/95 99 08/30/24 01:30 103 H 0 L 141/95 98 08/30/24 01:15 112 H 2 L 141/95 97 08/30/24 01:00 103 H 5 L 141/95 97 08/30/24 00:45 112 H 20 141/95 92 L 08/30/24 00:44 112 H 19 141/95 93 L 08/30/24 00:30 107 H 20 124/65 08/30/24 00:15 103 H 10 L 124/65 08/30/24 00:00 109 H 8 L 124/65 08/29/24 23:44 120 H 19 124/65 97 08/29/24 21:58 98.6 F 108 H 19 170/102 96 08/29/24 19:38 99.1 F 108 H 20 160/111 97 08/29/24 18:00 112 H 18 163/101 98 08/29/24 16:00 132 H 18 98 08/29/24 15:34 150 H 18 114/76 98 08/29/24 14:32 98.4 F 97 18 129/109 98 Intake and Output 08/29/24 08/30/24 08/30/24 22:59 06:59 14:59 Intake Total 22.25 86.5 594.183 Output Total 500 Balance 22.25 86.5 94.183 Intake: IV 575 Sodium Chloride 0.9% 1, 75 000 ml @ 75 mls/hr IV . [id number] [facility] Rx#:[id number] Sodium Chloride 0.9% 500 500 ml 500 ml @ 999 mls/hr IV .Q31M [facility] Rx#:[id number] Intake, IV Titration 22.25 86.5 19.183 Amount Diltiazem 125 mg In 22.25 86.5 Sodium Chloride 0.9% 100 ml @ 10 MG/HR 10 mls/hr IV .[id number] [facility] Rx#: [id number] Norepinephrine 4 mg In 19.183 Sodium Chloride 0.9% 250 ml @ 0.03 MCG/KG/MIN 9. 332 mls/hr IV .Q24H [facility] Rx#:[id number] Output: Urine 500 Straight 500 General: Revealed a 63-year-old female in no distress, family members at bedside Skin: Skin is warm and dry and no rashes or lesions are noted. Eye: Pupils are equal, round and reactive to light, extra-ocular movements are intact; there is normal conjunctiva bilaterally. Ears, nose, mouth and throat: There are moist mucous membranes and no oral lesions. Neck: The neck is supple, there is no tenderness or JVD. Cardiovascular: Irregular irregular rhythm, 2/6 systolic murmur throughout the precordium Respiratory: Symmetrical chest expansion clear breath sound bilaterally no rhonchi no wheezes Gastrointestinal: Soft, non-distended, non-tender abdomen without masses or organomegaly noted. There is no rebound or guarding present. Bowel sounds are unremarkable. y. Musculoskeletal: Normal ROM, no tenderness, There is no pedal edema. There is no calf tenderness or swelling. Neurological: Patient is alert, oriented x 1, otherwise no gross focal neurologic deficit. Psychiatric: Normal mood, normal affect, confused mental status. Results - Laboratory Findings CBC and BMP: 08/30/24 08:34 08/30/24 08:34 PT/INR, D-dimer PT 27.4 sec (10.0-12.5) H 08/29/24 14:44 INR 2.8 (<1.2) H 08/29/24 14:44 Abnormal lab findings: Abnormal Labs 08/29/24 08/29/24 08/29/24 14:32 14:34 14:44 WBC 11.9 H RBC 5.85 H Hgb 17.4 H Hct 54.7 H MCHC Neutrophils # 9.3 H PT INR APTT Potassium BUN Glucose POC Glucose (mg/dL) 197 H Troponin I Urine Appearance Cloudy H Urine Protein 3+ H Urine Glucose (UA) Urine Ketones 1+ H Urine Blood Small H Ur Leukocyte Esterase Moderate H Urine RBC 14 H Urine WBC 22 H Ur Squamous Epith Cells 18 H Urine Bacteria Rare H Hyaline Casts Urine Mucus Rare H 08/29/24 08/29/24 08/29/24 14:44 14:44 14:44 WBC RBC Hgb Hct MCHC Neutrophils # PT 27.4 H INR 2.8 H APTT 21.0 L Potassium 3.2 L BUN 31 H Glucose 206 H POC Glucose (mg/dL) Troponin I 0.114 H* Urine Appearance Urine Protein Urine Glucose (UA) Urine Ketones Urine Blood Ur Leukocyte Esterase Urine RBC Urine WBC Ur Squamous Epith Cells Urine Bacteria Hyaline Casts Urine Mucus 08/29/24 08/30/24 08/30/24 20:41 00:14 05:14 WBC RBC Hgb Hct MCHC Neutrophils # PT INR APTT Potassium BUN Glucose POC Glucose (mg/dL) 159 H Troponin I 0.098 H* 0.069 H* Urine Appearance Urine Protein Urine Glucose (UA) Urine Ketones Urine Blood Ur Leukocyte Esterase Urine RBC Urine WBC Ur Squamous Epith Cells Urine Bacteria Hyaline Casts Urine Mucus 08/30/24 08/30/24 08/30/24 08:25 08:34 08:34 WBC 10.7 H RBC Hgb Hct MCHC 29.9 L Neutrophils # 8.2 H PT INR APTT Potassium BUN 41 H Glucose 161 H POC Glucose (mg/dL) 155 H Troponin I Urine Appearance Urine Protein Urine Glucose (UA) Urine Ketones Urine Blood Ur Leukocyte Esterase Urine RBC Urine WBC Ur Squamous Epith Cells Urine Bacteria Hyaline Casts Urine Mucus 08/30/24 08/30/24 08/30/24 09:42 10:48 11:20 WBC RBC Hgb Hct MCHC Neutrophils # PT INR APTT Potassium BUN Glucose POC Glucose (mg/dL) 152 H 139 H Troponin I Urine Appearance Cloudy H Urine Protein 3+ H Urine Glucose (UA) Trace H Urine Ketones Trace H Urine Blood Small H Ur Leukocyte Esterase Urine RBC Urine WBC 7 H Ur Squamous Epith Cells Urine Bacteria Rare H Hyaline Casts 11 H Urine Mucus Moderate H - Diagnostic Findings Chest x-ray: image reviewed (As noted in HPI) Assessment and Plan Assessment: Impression: Atrial fibrillation with RVR Hypotension mostly secondary to medications given to the patient in the ER History of chronic atrial fibrillation Altered mental status, possible CVA Recent fall at home with head injury, however CT of the brain is unremarkable Benign essential hypertension dyslipidemia Type 2 diabetes Recommendation: Continue to monitor the patient in the ICU Continue norepinephrine for now and titrate accordingly maintaining a mean arterial pressure of 65 Awaiting her echocardiogram, pending Patient was seen by neurology, neurologic input is pending and CT of the brain and CT angiogram were negative Continue anticoagulation treatment patient is normally on Coumadin for atrial fibrillation Resume home meds except hold blood pressure medication for now Will continue to follow Time with Patient: Greater than 30
[2024-08-30] MEDS: POTASSIUM CHLORIDE ER 20 MEQ TAB.ER PO SCH ×2 (13:26→20:42)
[2024-08-30 13:40] LABS: INR 2.4 (<1.2); Prothrombin Time 23.7 sec (10.0-12.5)
--- NOTE | 2024-08-30 15:12 | P.CNNES ---
History of Present Illness Consult date: 08/30/24 Requesting physician: Diogenes Conway Reason for Consult: [facility] History of Present Illness: This is a 63-year-old woman who presented emergency department because of a fall about 2 days ago. Patient states that she does not remember how she fell but denies any loss of consciousness, urinary or bowel incontinence or tongue bite. She denies any history of seizure. She states that she had one-sided weakness issues she cannot remember if was the right or left but then later she stated that she thinks that she had right sided weakness. She denies any history of stroke or TIA in the past. Denies any speech difficulty. She does have underlying history of A-fib and she is on Coumadin and she states she is compliant taking the medication. She does have chronic diabetes, hypertension hypercholesteremia. She denies any numbness anywhere or any any ascending numbness. Denies any neck pain or lower back pain. Today while she was in the ED patient had episode of unresponsiveness that was brief but no jerking of any extremities as a result the ED team was called and code stroke was activated and patient patient symptoms is resolved. During the episode her blood pressure was as low as 80s over 40s again patient denies any history of seizures. Some of the workup during this hospital visit consisted of: Hospital visit her blood pressure was as low as 80s over 50s with a respiratory rate of 8 INR on presentation is 2.8 Initial serum glucose was 206. I reviewed the rest of the lab workup. Troponin initial presentation is 0.114 and is trending down. I reviewed the rest of the lab workup Urinalysis is cloudy, leukocyte esterase is moderate, urine white blood cells 22. CT cervical spine is reported as no acute trauma. Repeat CT of the head today is reported as no acute intracranial hemorrhage or midline shift. No significant change from 1 day earlier. I personally reviewed the CT and agree with the report CT angiography of the head and neck is reported as no flow-limiting stenosis bilateral carotid bifurcation. There is some fusiform prominence of the anterior communicating artery. [place] otherwise appears within normal limits. Review of Systems As per HPI. Past Medical History Past Medical History: Atrial Fibrillation History of Any Multi-Drug Resistant Organisms: Unobtainable Past Surgical History: Unable to Obtain Past Psychological History: Unable to Obtain Smoking Status: Unknown if ever smoked Past Alcohol Use History: Unable to Obtain Past Drug Use History: Unable to Obtain Medications and Allergies Home Medications Medication Instructions Recorded Confirmed Type Losartan Potassium 100 mg PO DAILY 08/29/24 08/29/24 History Semaglutide [Ozempic] 2 mg SQ JIMENEZ 08/29/24 08/29/24 History Simvastatin 40 mg PO HS 08/29/24 08/29/24 History Warfarin [Coumadin] 5 mg PO DAILY 08/29/24 08/29/24 History atenoloL [Tenormin] 50 mg PO DAILY 08/29/24 08/29/24 History cloNIDine HCL [Catapres] 0.3 mg PO DAILY 08/29/24 08/29/24 History glyBURIDE [Diabeta] 5 mg PO BID 08/29/24 08/29/24 History hydrALAZINE HCL [Apresoline] 50 mg PO BID-W/MEALS 08/29/24 08/29/24 History hydroCHLOROthiazide 25 mg PO DAILY 08/29/24 08/29/24 History metFORMIN HCL [Glucophage] 1,000 mg PO BID-W/MEALS 08/29/24 08/29/24 History traZODone HCL [Trazodone HCl] 300 mg PO HS 08/29/24 08/29/24 History Allergies Allergy/AdvReac Type Severity Reaction Status Date / Time codeine Allergy Itching Verified 08/29/24 17:51 naproxen Allergy Unknown Verified 08/29/24 17:51 Physical Examination - Vital Signs Vital Signs: Vital Signs Temp Pulse Resp BP Pulse Ox 08/30/24 13:30 51 L 95/61 96 08/30/24 13:15 65 103/58 95 08/30/24 13:00 67 15 88/50 96 08/30/24 12:45 63 85/49 97 08/30/24 12:30 65 90/62 95 08/30/24 12:15 65 84/54 97 08/30/24 12:00 68 17 84/56 97 08/30/24 11:45 59 L 90/47 97 08/30/24 11:30 56 L 91/58 98 08/30/24 11:15 97.9 F 60 19 87/58 96 08/30/24 11:00 95/54 08/30/24 10:45 95/54 08/30/24 10:35 62 20 95/54 99 08/30/24 10:30 61 8 L 80/45 94 L 08/30/24 10:17 68 20 73/32 98 08/30/24 10:15 70 10 L 70/36 81 L 08/30/24 10:05 66 20 70/36 98 08/30/24 10:00 85/48 08/30/24 09:45 69 27 H 85/48 93 L 08/30/24 09:34 72 20 89/47 08/30/24 09:30 72 17 131/79 89 L 08/30/24 09:15 73 9 L 131/79 96 08/30/24 09:00 70 0 L 131/79 97 08/30/24 08:45 83 7 L 131/79 97 08/30/24 08:30 93 11 L 131/79 96 08/30/24 08:25 107 H 20 131/79 99 08/30/24 08:15 112 H 24 145/79 96 08/30/24 08:00 98 20 145/79 87 L 08/30/24 07:45 98 13 145/79 87 L 08/30/24 07:30 101 H 12 145/79 95 08/30/24 07:24 98.4 F 102 H 20 145/79 97 08/30/24 07:15 93 16 138/84 98 08/30/24 07:00 96 2 L 138/84 97 08/30/24 06:45 105 H 17 138/84 97 08/30/24 06:30 101 H 3 L 138/84 97 08/30/24 06:15 92 18 138/84 99 08/30/24 06:00 98 18 138/84 98 08/30/24 05:45 103 H 18 138/84 96 08/30/24 05:30 95 16 138/84 98 08/30/24 05:15 98.4 F 101 H 4 L 138/84 98 08/30/24 05:00 110 H 19 158/91 99 08/30/24 04:45 105 H 20 158/91 97 08/30/24 04:30 96 18 158/91 95 08/30/24 04:15 110 H 22 158/91 93 L 08/30/24 04:00 110 H 17 158/91 94 L 08/30/24 03:45 107 H 18 158/91 93 L 08/30/24 03:30 104 H 11 L 158/91 97 08/30/24 03:15 98 18 158/91 91 L 08/30/24 03:00 112 H 10 L 158/91 99 08/30/24 02:45 101 H 16 158/91 99 08/30/24 02:30 109 H 20 158/91 97 08/30/24 02:24 99 15 158/91 98 08/30/24 02:15 106 H 19 158/91 98 08/30/24 02:00 102 H 8 L 141/95 88 L 08/30/24 01:45 110 H 0 L 141/95 99 08/30/24 01:30 103 H 0 L 141/95 98 08/30/24 01:15 112 H 2 L 141/95 97 08/30/24 01:00 103 H 5 L 141/95 97 08/30/24 00:45 112 H 20 141/95 92 L 08/30/24 00:44 112 H 19 141/95 93 L 08/30/24 00:30 107 H 20 124/65 08/30/24 00:15 103 H 10 L 124/65 08/30/24 00:00 109 H 8 L 124/65 08/29/24 23:44 120 H 19 124/65 97 08/29/24 21:58 98.6 F 108 H 19 170/102 96 08/29/24 19:38 99.1 F 108 H 20 160/111 97 08/29/24 18:00 112 H 18 163/101 98 08/29/24 16:00 132 H 18 98 08/29/24 15:34 150 H 18 114/76 98 Intake and Output 08/29/24 08/30/24 08/30/24 22:59 06:59 14:59 Intake Total 22.25 86.5 719.183 Output Total 500 Balance 22.25 86.5 219.183 Intake: IV 700 Sodium Chloride 0.9% 1, 150 000 ml @ 75 mls/hr IV . [id number] [facility] Rx#:[id number] Sodium Chloride 0.9% 500 500 ml 500 ml @ 999 mls/hr IV .Q31M [facility] Rx#:[id number] cefTRIAXone 2 gm In 50 Sodium Chloride 0.9% 50 ml @ 100 mls/hr IVPB Q24HR [facility] Rx#:[id number] Intake, IV Titration .25 86.5 19.183 Amount Diltiazem 125 mg In 22.25 86.5 Sodium Chloride 0.9% 100 ml @ 10 MG/HR 10 mls/hr IV .[id number] [facility] Rx#: [id number] Norepinephrine 4 mg In 19.183 Sodium Chloride 0.9% 250 ml @ 0.03 MCG/KG/MIN 9. 332 mls/hr IV .Q24H [facility] Rx#:[id number] Output: Urine 500 Straight 500 GENERAL: The patient is lying in bed and is not in acute distress. NEUROLOGICAL: Higher mental function: The patient is awake, alert, oriented to self, place and time. Patient is following commands. No aphasia and no neglect. Cranial nerves: The pupils are round, equal and reactive to light and accommodation. Visual mistry are full to confrontation throughout. Extraocular movement is intact no nystagmus is noted. Facial sensation is normal to touch throughout. The facial strength is normal throughout. Hearing is normal bilaterally to hand rub. Tongue is midline and moved [id number] without any difficulty. No dysarthria is noted. Shoulder shrug is normal bilaterally. Motor: The strength is 5 over 5 throughout. Normal tone and bulk. Cerebellum: Normal finger to nose bilaterally and had difficulty with heel to [place] bilaterally. Sensation: Sensation is normal to touch throughout. Decreased proprioception on toes bilaterally but normal at ankles. Reflexes (right/left): Uppers are 2+ while lowers are patellar 1+/1+; ankles 0/0. Plantars are downgoing bilaterally. Results - Laboratory Findings CBC and BMP: 08/30/24 08:34 08/30/24 08:34 Abnormal Lab Findings: Abnormal Labs 08/29/24 08/29/24 08/29/24 14:32 14:34 14:44 WBC 11.9 H RBC 5.85 H Hgb 17.4 H Hct 54.7 H MCHC Neutrophils # 9.3 H PT INR APTT Potassium BUN Glucose POC Glucose (mg/dL) 197 H Troponin I Urine Appearance Cloudy H Urine Protein 3+ H Urine Glucose (UA) Urine Ketones 1+ H Urine Blood Small H Ur Leukocyte Esterase Moderate H Urine RBC 14 H Urine WBC 22 H Ur Squamous Epith Cells 18 H Urine Bacteria Rare H Hyaline Casts Urine Mucus Rare H 02/08/29/24 08/29/24 14:44 14:44 14:44 WBC RBC Hgb Hct MCHC Neutrophils # PT 27.4 H INR 2.8 H APTT 21.0 L Potassium 3.2 L BUN 31 H Glucose 206 H POC Glucose (mg/dL) Troponin I 0.114 H* Urine Appearance Urine Protein Urine Glucose (UA) Urine Ketones Urine Blood Ur Leukocyte Esterase Urine RBC Urine WBC Ur Squamous Epith Cells Urine Bacteria Hyaline Casts Urine Mucus 08/29/24 08/30/24 08/30/24 20:41 00:14 05:14 WBC RBC Hgb Hct MCHC Neutrophils # PT INR APTT Potassium BUN Glucose POC Glucose (mg/dL) 159 H Troponin I 0.098 H* 0.069 H* Urine Appearance Urine Protein Urine Glucose (UA) Urine Ketones Urine Blood Ur Leukocyte Esterase Urine RBC Urine WBC Ur Squamous Epith Cells Urine Bacteria Hyaline Casts Urine Mucus 08/30/24 08/30/24 08/30/24 08:25 08:34 08:34 WBC 10.7 H RBC Hgb Hct MCHC 29.9 L Neutrophils # 8.2 H PT INR APTT Potassium BUN 41 H Glucose 161 H POC Glucose (mg/dL) 155 H Troponin I Urine Appearance Urine Protein Urine Glucose (UA) Urine Ketones Urine Blood Ur Leukocyte Esterase Urine RBC Urine WBC Ur Squamous Epith Cells Urine Bacteria Hyaline Casts Urine Mucus 08/30/24 08/30/24 08/30/24 09:42 10:48 11:20 WBC RBC Hgb Hct MCHC Neutrophils # PT INR APTT Potassium BUN Glucose POC Glucose (mg/dL) 152 H 139 H Troponin I Urine Appearance Cloudy H Urine Protein 3+ H Urine Glucose (UA) Trace H Urine Ketones Trace H Urine Blood Small H Ur Leukocyte Esterase Urine RBC Urine WBC 7 H Ur Squamous Epith Cells Urine Bacteria Rare H Hyaline Casts 11 H Urine Mucus Moderate H 08/30/24 13:16 WBC RBC Hgb Hct MCHC Neutrophils # PT 23.7 H INR 2.4 H APTT Potassium BUN Glucose POC Glucose (mg/dL) Troponin I Urine Appearance Urine Protein Urine Glucose (UA) Urine Ketones Urine Blood Ur Leukocyte Esterase Urine RBC Urine WBC Ur Squamous Epith Cells Urine Bacteria Hyaline Casts Urine Mucus Assessment and Plan Assessment: This is a 63-year-old woman who presents emergency department because of a fall. She does not recall what happened but denies any loss of consciousness. Today she had another episode that she was unresponsive but her blood pressure during this hospital visit was as low as 80s over 40s. She had 2 CT of the head which are unremarkable and CT angiography of the head and neck which is also negative for any large vessel occlusion or significant stenosis. Episode of unresponsiveness: Probable due to her significant hypotensive episode. Notable right sided weakness patient complained of but was not exactly sure: If it truly due to TIA Hypo to areflexia of bilateral lower extremity: Unsure if this is acute or chronic. Has chronic diabetes which can result to peripheral neuropathy. Rule out acute demyelinating polyneuropathy such as GBS Significant hypotensive with bradycardia. History of atrial fibrillation on Coumadin Chronic diabetes mellitus Underlying history of hypertension Hypercholesteremia Plan: I ordered CT lumbar spine then will pursue with MRI lumbar. I ordered a routine EEG but I doubt these episodes are seizures. Hemoglobin A1c is ordered by the primary team is pending I ordered MRI of the brain to rule out any underlying stroke Consulted PT and OT Will consider lumbar puncture if the workup above is unremarkable and the patient continues to have symptoms to rule out GBS. Unable to perform lumbar puncture at this time since patient is on Coumadin and INR is in the 2ish. Commend EMG with nerve conduction study as an outpatient of the lowers to rule out any neuropathy I ordered TSH, vitamin B12 and folate Please avoid any further hypotensive episode Will defer the rest of the medical management to primary and other specialist Plan discussed with the ICU nurse Thank you for the consultation Dr. Min cerda neurology service tomorrow AM Time with Patient: Greater than 30
[2024-08-30 17:46] LABS: Glucose,Whole Blood 124 mg/dL (70-110)
--- NOTE | 2024-08-30 17:54 | CT ---
EXAMINATION TYPE: CT lumbar spine wo con CT DLP: 1978.6 mGycm, Automated exposure control for dose reduction was used. DATE OF EXAM: 08/30/2024 5:42 PM COMPARISON: No direct comparisons. CLINICAL INDICATION:Female, 63 years old with history of falls; PHH, Falls., pain TECHNIQUE: Multiple axial images were obtained from the midportion of T11 through the sacroiliac richard nts. Soft tissue and bone windows in coronal and sagittal planes were obtained and reviewed. Contrast used: none. Oral contrast used: none. FINDINGS: Alignment: There are 5 lumbar type vertebral bodies within normal alignment. Bone: Superior central endplate deformity involving the L1 vertebral body with approximately 20% heig ht loss centrally. No retropulsion. Schmorl's node involving the superior endplate of the L2 vertebra l body. Anterior osteophytosis at L3-L4, T12-L1 and T11-T12. Discs: T12-L1: No spinal canal or neural foraminal stenosis is identified. L1-L2: No spinal canal or neural foraminal stenosis is identified. L2-L3: No spinal canal or neural foraminal stenosis is identified. L3-L4: Broad-based disc bulge with mild effacement of the anterior thecal sac. No neural foraminal st enosis. L4-L5: Broad-based disc bulge with mild effacement of the anterior thecal sac. No neural foraminal st enosis. L5-S1: No spinal canal or neural foraminal stenosis is identified. Other: Partial visualization of gastric lap band. Contrast is demonstrated within both renal collecti ng systems from earlier CTA. Atherosclerotic calcification of the aorta and its branches. No abdomina l aortic aneurysm. The appendix is within normal limits. IMPRESSION: 1. Age-indeterminate central superior endplate compression deformity versus Schmorl's node at L1. Meena roximately 20% height loss centrally. No retropulsion. Correlate with point tenderness versus MRI. 2. Mild multilevel degenerative disc disease. [facility], , 08/30/2024 5:52 PM
[2024-08-30] MEDS: WARFARIN 5 MG TAB PO ONE (18:19)
[2024-08-30 20:16] LABS: T4, Free (Free Thyroxine) 1.83 ng/dL (0.78-2.19)
[2024-08-30 20:26] LABS: Glucose,Whole Blood 146 mg/dL (70-110)
--- NOTE | 2024-08-30 22:14 | EEG ---
ELECTROENCEPHALOGRAM REPORT CLINICAL HISTORY: This is a 63-year-old woman with episode of unresponsiveness. The video EEG is obtained to evaluate for seizure epileptiform activity. RELEVANT MEDICATION: Trazodone. EEG TYPE: This is a routine 21-channel EEG with video using the 10/20 electrode placement system. DESCRIPTION: Wakefulness is only obtained. During awake state, the background consists of low-to- moderate voltage of 7 to 7.5 hertz activity. There was no physiological stage 2 sleep architecture. There is no focal slowing. Interictal and ictal is none. ACTIVATION PROCEDURE: Photic stimulation did not evoke a posterior driving response. There is no abnormality during the photic stimulation. Hyperventilation is not performed. CLINICAL INTERPRETATION: This is an abnormal routine EEG. The background slowing is suggestive of mild encephalopathy. Otherwise, there is no focal slowing, epileptiform discharge, or seizure on the EEG. Lack of epileptiform discharges does not rule out underlying epilepsy. Clinical correlation is recommended. JANET / KADE: [id number] /
[2024-08-31 03:44] LABS: Glucose,Whole Blood 86 mg/dL (70-110)
[2024-08-31 05:41] LABS: HCT 37.2 % (34.0-46.0); Hypochromasia Slight; MCH 28.7 pg (25.0-35.0); MCHC 29.5 g/dL (31.0-37.0); MCV 97.1 fL (80.0-100.0); Mean Platelet Volume 8.8; Platelet Count 247 k/uL (150-450); RBC 3.83 m/uL (3.80-5.40); RDW 14.5 % (11.5-15.5); WBC 10.6 k/uL (3.8-10.6)
[2024-08-31 05:44] LABS: INR 2.2 (<1.2); Prothrombin Time 22.6 sec (10.0-12.5)
[2024-08-31 06:09] LABS: African American GFR (CKD) 78 (>60 ml/min/1.73 sqM); Anion Gap 5 mmol/L; Blood Urea Nitrogen 38 mg/dL (7-17); Carbon Dioxide 24 mmol/L (22-30); Chloride 105 mmol/L (98-107); Glucose 69 mg/dL (74-99); Magnesium 1.7 mg/dL (1.6-2.3); Non-African American GFR(CKD) 68 (>60 ml/min/1.73 sqM); Potassium 3.8 mmol/L (3.5-5.1); Sodium 134 mmol/L (137-145)
[2024-08-31 06:16] LABS: Glucose,Whole Blood 71 mg/dL (70-110)
[2024-08-31] MEDS ORDERED: Magnesium Replacement Protocol 1 EACH MISC MISCELLANE PRN (06:19)
[2024-08-31] MEDS: DEXTROSE 50% SYRINGE 50 ML IVP PRN (06:30)
[2024-08-31] MEDS: MAGNESIUM SULFATE-D5W PMX 1 GM in DEXTROSE/WATER 1 100ML.BAG IVPB ONE (06:31)
[2024-08-31] MEDS: POTASSIUM CHLORIDE ER 20 MEQ TAB.ER PO SCH (06:31)
[2024-08-31 07:04] LABS: Glucose,Whole Blood 97 mg/dL (70-110)
--- NOTE | 2024-08-31 08:52 | P.HPIM ---
History of Present Illness H&P Date: 08/30/24 Chief Complaint: Fall 63-year-old female, history of hypertension, chronic atrial fibrillation, dyslipidemia, diabetes, obesity, presented to the hospital after she had a fall and hit her head on the stove. 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 Earlier in the week on Monday, the son talked to her and she was having nausea and vomiting and they were going to wait 1 more day before they took her to the doctor. She had a recent muscle tear in June and had not been that active. He also states that there was a medication she was not able to obtain over the weekend but apparently picked up on Monday. Patient's mental status seemed to be off a little bit yesterday but the son states that she seems to be much improved today. In the ED patient was found to be in atrial fibrillation with RVR and was placed on IV Cardizem infusion. While in ED, patient became unresponsive according to her nurse. She had been awake and alert 15 minutes prior to this episode. Her systolic blood pressure dropped down to 70. She was given fluid bolus and her systolic pressure was then 89. Blood sugar was 152. There was concern that she was staring to the left side. When she had the unresponsive episode, her son thought that she was just sleeping. Since arrival, patient has been alert and oriented except that she cannot recall the year. Patient went for stat CT of the brain. Subsequently the systolic blood pressure was 70/36 and orders were given for Levophed and patient was to be transferred to the CCU. Her EKG showed atrial fibrillation with RVR rate of 150 chest x-ray showed no evidence of active disease CT of the brain and cervical spine was basically unremarkable. Her labs showed relatively normal electrolytes except for low potassium of 3.2 troponin was a bit high her viral panel was negative. Ech ocardiogram from 2013 showed LV function to be normal. And she also had moderate mitral regurgitation at the time. Review of Systems REVIEW OF SYSTEMS: CONSTITUTIONAL: No fever, no malaise, no fatigue. HEENT: No recent visual problems or hearing problems. Denied any sore throat. CARDIOVASCULAR: No chest pain, orthopnea, PND, no palpitations, no syncope. PULMONARY: No shortness of breath, no cough, no hemoptysis. GASTROINTESTINAL: No diarrhea, no nausea, no vomiting, no abdominal pain. NEUROLOGICAL: No headaches, no weakness, no numbness. HEMATOLOGICAL: Denies any bleeding or petechiae. GENITOURINARY: Denies any burning micturition, frequency, or urgency. MUSCULOSKELETAL/RHEUMATOLOGICAL: Denies any joint pain, swelling, or any muscle pain. ENDOCRINE: Denies any polyuria or polydipsia. The rest of the 14-point review of systems is negative. Past Medical History Past Medical History: Atrial Fibrillation History of Any Multi-Drug Resistant Organisms: Unobtainable Past Surgical History: Unable to Obtain Past Psychological History: Unable to Obtain Smoking Status: Unknown if ever smoked Past Alcohol Use History: Unable to Obtain Past Drug Use History: Unable to Obtain - Past Family History Father Family Medical History: AFIB Medications and Allergies Home Medications Medication Instructions Recorded Confirmed Type Losartan Potassium 100 mg PO DAILY 08/29/24 08/29/24 History Semaglutide [Ozempic] 2 mg SQ JIMENEZ 08/29/24 08/29/24 History Simvastatin 40 mg PO HS 08/29/24 08/29/24 History Warfarin [Coumadin] 5 mg PO DAILY 08/29/24 08/29/24 History atenoloL [Tenormin] 50 mg PO DAILY 08/29/24 08/29/24 History cloNIDine HCL [Catapres] 0.3 mg PO DAILY 08/29/24 08/29/24 History glyBURIDE [Diabeta] 5 mg PO BID 08/29/24 08/29/24 History hydrALAZINE HCL [Apresoline] 50 mg PO BID-W/MEALS 08/29/24 08/29/24 History hydroCHLOROthiazide 25 mg PO DAILY 08/29/24 08/29/24 History metFORMIN HCL [Glucophage] 1,000 mg PO BID-W/MEALS 08/29/24 08/29/24 History traZODone HCL [Trazodone HCl] 300 mg PO HS 08/29/24 08/29/24 History Allergies Allergy/AdvReac Type Severity Reaction Status Date / Time codeine Allergy Itching Verified 08/29/24 17:51 naproxen Allergy Unknown Verified 08/29/24 17:51 Physical Exam Vitals: Vital Signs Temp Pulse Resp BP Pulse Ox 08/30/24 10:35 62 20 95/54 99 08/30/24 10:30 61 20 80/45 96 02/28/25 10:17 68 20 73/32 98 08/30/24 10:05 66 20 70/36 98 08/30/24 09:34 72 20 89/47 08/30/24 08:25 107 H 20 131/79 99 08/30/24 07:24 98.4 F 102 H 20 145/79 97 08/30/24 05:15 98.4 F 104 H 19 138/84 98 08/30/24 02:24 99 15 158/91 98 08/30/24 00:44 112 H 19 141/95 93 L 08/29/24 23:44 120 H 19 124/65 97 08/29/24 21:58 98.6 F 108 H 19 170/102 96 08/29/24 19:38 99.1 F 108 H 20 160/111 97 08/29/24 18:00 112 H 18 163/101 98 08/29/24 16:00 132 H 18 98 08/29/24 15:34 150 H 18 114/76 98 08/29/24 14:32 98.4 F 97 18 129/109 98 Intake and Output 08/29/24 08/30/24 08/30/24 22:59 06:59 14:59 Intake Total 22.25 86.5 Balance 22.25 86.5 Intake: Intake, IV Titration 22.25 86.5 Amount Diltiazem 125 mg In 22.25 86.5 Sodium Chloride 0.9% 100 ml @ 5 MG/HR 5 mls/hr IV .Q24H [facility] Rx#:[id number] General appearance: alert, other (Patient is shaking.) Head exam: Present: atraumatic, normocephalic Eye exam: Present: normal appearance, PERRL, EOMI ENT exam: Present: normal oropharynx, other (Right zygomatic region with mild area of erythema and mild tenderness) Neck exam: Present: normal inspection, tenderness (Mild diffuse tenderness. C- collar is in place.) Respiratory exam: Present: normal lung sounds bilaterally Cardiovascular Exam: Present: tachycardia GI/Abdominal exam: Present: soft. Absent: tenderness Extremities exam: Present: normal inspection. Absent: pedal edema, calf tenderness Neurological exam: Present: alert, CN II-XII intact. Absent: motor sensory deficit Cranial nerves: EOM's Intact: Normal Sensory exam: Upper Extremity Light Touch: Normal, Lower Extremity Light Touch: Normal Motor strength exam: RUE: 5, LUE: 5, RLE: 5, LLE: 5 Motor Response: (6) obeys commands Psychiatric exam: Present: normal affect, normal mood Skin exam: Present: normal color Results CBC & Chem 7: 08/31/24 05:14 08/31/24 05:14 Labs: Abnormal Lab Results - Last 24 Hours (Table) 08/29/24 08/29/24 08/29/24 Range/Units 14:32 14:34 14:44 WBC 11.9 H (3.8-10.6) k/uL RBC 5.85 H (3.80-5.40) m/uL Hgb 17.4 H (11.4-16.0) gm/dL Hct 54.7 H (34.0-46.0) % MCHC (31.0-37.0) g/dL Neutrophils # 9.3 H (1.3-7.7) k/uL PT (10.0-12.5) sec INR (<1.2) APTT (22.0-30.0) sec Potassium (3.5-5.1) mmol/L BUN (7-17) mg/dL Glucose (74-99) mg/dL POC Glucose (mg/dL) 197 H (70-110) mg/dL Troponin I (0.000-0.034) ng/mL Urine Appearance Cloudy H (Clear) Urine Protein 3+ H (Negative) Urine Ketones 1+ H (Negative) Urine Blood Small H (Negative) Ur Leukocyte Esterase Moderate H (Negative) Urine RBC 14 H (0-5) /hpf Urine WBC 22 H (0-5) /hpf Ur Squamous Epith Cells 18 H (0-4) /hpf Urine Bacteria Rare H (None) /hpf Urine Mucus Rare H (None) /hpf 08/29/24 08/29/24 08/29/24 Range/Units 14:44 14:44 14:44 WBC (3.8-10.6) k/uL RBC (3.80-5.40) m/uL Hgb (11.4-16.0) gm/dL Hct (34.0-46.0) % MCHC (31.0-37.0) g/dL Neutrophils # (1.3-7.7) k/uL PT 27.4 H (10.0-12.5) sec INR 2.8 H (<1.2) APTT 21.0 L (22.0-30.0) sec Potassium 3.2 L (3.5-5.1) mmol/L BUN 31 H (7-17) mg/dL Glucose 206 H (74-99) mg/dL POC Glucose (mg/dL) (70-110) mg/dL Troponin I 0.114 H* (0.000-0.034) ng/mL Urine Appearance (Clear) Urine Protein (Negative) Urine Ketones (Negative) Urine Blood (Negative) Ur Leukocyte Esterase (Negative) Urine RBC (0-5) /hpf Urine WBC (0-5) /hpf Ur Squamous Epith Cells (0-4) /hpf Urine Bacteria (None) /hpf Urine Mucus (None) /hpf 08/29/24 08/30/24 08/30/24 Range/Units 20:41 00:14 05:14 WBC (3.8-10.6) k/uL RBC (3.80-5.40) m/uL Hgb (11.4-16.0) gm/dL Hct (34.0-46.0) % MCHC (31.0-37.0) g/dL Neutrophils # (1.3-7.7) k/uL PT (10.0-12.5) sec INR (<1.2) APTT (22.0-30.0) sec Potassium (3.5-5.1) mmol/L BUN (7-17) mg/dL Glucose (74-99) mg/dL POC Glucose (mg/dL) 159 H (70-110) mg/dL Troponin I 0.098 H* 0.069 H* (0.000-0.034) ng/mL Urine Appearance (Clear) Urine Protein (Negative) Urine Ketones (Negative) Urine Blood (Negative) Ur Leukocyte Esterase (Negative) Urine RBC (0-5) /hpf Urine WBC (0-5) /hpf Ur Squamous Epith Cells (0-4) /hpf Urine Bacteria (None) /hpf Urine Mucus (None) /hpf 08/30/24 08/30/24 08/30/24 Range/Units 08:25 08:34 08:34 WBC 10.7 H (3.8-10.6) k/uL RBC (3.80-5.40) m/uL Hgb (11.4-16.0) gm/dL Hct (34.0-46.0) % MCHC 29.9 L (31.0-37.0) g/dL Neutrophils # 8.2 H (1.3-7.7) k/uL PT (10.0-12.5) sec INR (<1.2) APTT (22.0-30.0) sec Potassium (3.5-5.1) mmol/L BUN 41 H (7-17) mg/dL Glucose 161 H (74-99) mg/dL POC Glucose (mg/dL) 155 H (70-110) mg/dL Troponin I (0.000-0.034) ng/mL Urine Appearance (Clear) Urine Protein (Negative) Urine Ketones (Negative) Urine Blood (Negative) Ur Leukocyte Esterase (Negative) Urine RBC (0-5) /hpf Urine WBC (0-5) /hpf Ur Squamous Epith Cells (0-4) /hpf Urine Bacteria (None) /hpf Urine Mucus (None) /hpf 08/30/24 08/30/24 Range/Units 09:42 10:48 WBC (3.8-10.6) k/uL RBC (3.80-5.40) m/uL Hgb (11.4-16.0) gm/dL Hct (34.0-46.0) % MCHC (31.0-37.0) g/dL Neutrophils # (1.3-7.7) k/uL PT (10.0-12.5) sec INR (<1.2) APTT (22.0-30.0) sec Potassium (3.5-5.1) mmol/L BUN (7-17) mg/dL Glucose (74-99) mg/dL POC Glucose (mg/dL) 152 H 139 H (70-110) mg/dL Troponin I (0.000-0.034) ng/mL Urine Appearance (Clear) Urine Protein (Negative) Urine Ketones (Negative) Urine Blood (Negative) Ur Leukocyte Esterase (Negative) Urine RBC (0-5) /hpf Urine WBC (0-5) /hpf Ur Squamous Epith Cells (0-4) /hpf Urine Bacteria (None) /hpf Urine Mucus (None) /hpf Assessment and Plan Assessment: 1. Atrial fibrillation with RVR -Patient does have history of chronic atrial fibrillation and is anticoagulated on Coumadin -Patient placed on IV Cardizem infusion in ED with improved rate control -Cardizem was discontinued; await further cardiology evaluation 2. Hypotension; likely medication effect -Cardizem infusion has been discontinued; hold antihypertensive therapy -Patient received IV fluid bolus in ED; remains on IV Levophed infusion; plan to titrate maintaining MAP of 65 -Intensive care service on board 3. Altered mental status CT of the brain and CT angiogram were negative -Patient has been admitted to complete stroke workup and further neurology evaluation 4. Fall with head injury -Patient had CT of the brain completed in ED which was unremarkable 5. Hypertension; patient was found to be hypotensive in ED; antihypertensive medications remain on hold 6. Hyperlipidemia; Lipitor 20 mg p.o. nightly 7. Diabetes mellitus type II; patient is currently on glipizide 5 mg twice daily, metformin 1000 mg twice daily; monitor Accu-Cheks before every meal and at bedtime with insulin sliding scale DVT prophylaxis; SCDs/Coumadin CODE STATUS; full code
[2024-08-31 11:02] LABS: Glucose,Whole Blood 120 mg/dL (70-110)
--- NOTE | 2024-08-31 12:30 | CA ---
Transthoracic Echo Report Name: Conner Scott Age: 63 Gender: F : 1960 Exam Date: 08/30/2024 17:08 Exam Location: [facility] Ht (in): 65 Wt (lb): 180 Ordering Physician: Giovana Moreno Attending/Referring Phys: [id number], Josh Crossbar Switch Adjuster Candace Moon RDCS Procedure CPT: Indications: LVF Cardiac Hx: Technical Quality: Fair Contrast 1: Total Dose (mL): Contrast 2: Total Dose (mL): MEASUREMENTS (Male / Female) Normal Values 2D ECHO LV Diastolic Diameter PLAX 4.8 cm 4.2 - 5.9 / 3.9 - 5.3 cm LV Systolic Diameter PLAX 2.9 cm IVS Diastolic Thickness 1.1 cm 0.6 - 1.0 / 0.6 - 0.9 cm LVPW Diastolic Thickness 1.0 cm 0.6 - 1.0 / 0.6 - 0.9 cm LV Relative Wall Thickness 0.4 RV Internal Dim ED PLAX 3.3 cm LA Systolic Diameter LX 4.8 cm 3.0 - 4.0 / 2.7 - 3.8 cm LV Diastolic Volume MOD BP 64.9 cm??? 67 - 155 / 56 - 104 cm??? LV Systolic Volume MOD BP 38.8 cm??? - 58 / 19 - 49 cm??? LV Ejection Fraction MOD BP 40.2 % >= 55 % LV Cardiac Index MOD BP 1105.3 cm???/min???m??? LV Diastolic Volume MOD 4C 80.9 cm??? LV Systolic Volume MOD 4C 43.1 cm??? LV Ejection Fraction MOD 4C 46.7 % LV Cardiac Index MOD 4C 1599.5 cm???/min???m??? LV Diastolic Length 4C 7.0 cm LV Systolic Length 4C 5.8 cm LV Diastolic Volume MOD 2C 53.4 cm??? LV Systolic Volume MOD 2C 38.1 cm??? LV Ejection Fraction MOD 2C 28.6 % LV Cardiac Index MOD 2C 645.7 cm???/min???m??? LV Diastolic Length 2C 6.9 cm LV Systolic Length 2C 5.8 cm LA Volume 82.2 cm??? 18 - 58 / 22 - 52 cm??? LA Volume Index 41.9 cm???/m??? 16 - 28 cm???/m??? M-MODE Aortic Root Diameter MM 3.3 cm DOPPLER MV Area PHT 3.9 cm??? Mitral E Point Velocity 80.4 cm/s Mitral A Point Velocity 26.9 cm/s Mitral E to A Ratio 3.0 MV Deceleration Time 194.9 ms TR Peak Velocity 164.8 cm/s TR Peak Gradient 10.9 mmHg Right Ventricular Systolic Press 30.0 mmHg FINDINGS Left Ventricle Left ventricular ejection fraction is estimated at 55 %. Left ventricular cavity size normal. Mildly increased septal wall thickness. Mildly increased posterior wall thickness. Right Ventricle Mild right ventricular dilatation. Right ventricular systolic pressure within normal limits. Right Atrium Right atrium not well visualized. Left Atrium Severely increased left atrial diameter. Severely increased left atrial volume. Moderately increased left atrial area. No left atrial thrombus or mass present. Mitral Valve Structurally normal mitral valve. Mitral annular calcification. Trace to mild mitral regurgitation. Aortic Valve Trileaflet aortic valve. No aortic valve stenosis or regurgitation. Aortic valve sclerosis. Tricuspid Valve Structurally normal tricuspid valve. Trace to mild tricuspid regurgitation. Pulmonic Valve Structurally normal pulmonic valve. Trace pulmonic regurgitation. Pericardium Small pericardial effusion loculated by lateral wall. Aorta Normal size aortic root and proximal ascending aorta. CONCLUSIONS Left ventricular ejection fraction 55% Mildly increased left jaw thickness Moderately dilated left atrium Mild tricuspid regurgitation Mild mitral regurgitation Small pericardial effusion without tamponade physiology Previewed by: Dr. Rolando Gutierrez DO (Electronically Signed) Final Date: 31 August 2024 12:29
--- NOTE | 2024-08-31 13:04 | P.PN ---
Subjective Progress Note Date: 08/31/24 63-year-old female, history of hypertension, chronic atrial fibrillation, dyslipidemia, diabetes, obesity, presented to the hospital after she had a fall and hit her head on the stove. 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 Earlier in the week on Monday, the son talked to her and she was having nausea and vomiting and they were going to wait 1 more day before they took her to the doctor. She had a recent muscle tear in June and had not been that active. He also states that there was a medication she was not able to obtain over the weekend but apparently picked up on Monday. Patient's mental status seemed to be off a little bit yesterday but the son states that she seems to be much improved today. In the ED patient was found to be in atrial fibrillation with RVR and was placed on IV Cardizem infusion. While in ED, patient became unresponsive according to her nurse. She had been awake and alert 15 minutes prior to this episode. Her systolic blood pressure dropped down to 70. She was given fluid bolus and her systolic pressure was then 89. Blood sugar was 152. There was concern that she was staring to the left side. When she had the unresponsive episode, her son thought that she was just sleeping. Since arrival, patient has been alert and oriented except that she cannot recall the year. Patient went for stat CT of the brain. Subsequently the systolic blood pressure was 70/36 and orders were given for Levophed and patient was to be transferred to the CCU. Her EKG showed atrial fibrillation with RVR rate of 150 chest x-ray showed no evidence of active disease CT of the brain and cervical spine was basically unremarkable. Her labs showed relatively normal electrolytes except for low potassium of 3.2 troponin was a bit high her viral panel was negative. Echocardiogram from 2013 showed LV function to be normal. And she also had moderate mitral regurgitation at the time. Objective - Vital Signs Vital signs: Vital Signs Temp 98.4 F 08/31/24 04:00 Pulse 80 08/31/24 07:00 Resp 11 L 08/31/24 07:00 BP 116/69 08/31/24 07:00 Pulse Ox 98 08/31/24 07:00 FiO2 Intake & Output 02/28/25 03/01/25 03/01/25 18:59 06:59 18:59 Intake Total 3142.213 5464 Output Total 500 450 Balance 669.183 790 Weight 96.8 kg 99 kg Intake: IV 1150 900 Sodium Chloride 0.9% 1, 600 900 000 ml @ 75 mls/hr IV . [id number] [facility] Rx#:[id number] Sodium Chloride 0.9% 500 500 ml 500 ml @ 999 mls/hr IV .Q31M ONE Rx#:[id number] cefTRIAXone 2 gm In 50 Sodium Chloride 0.9% 50 ml @ 100 mls/hr IVPB Q24HR [facility] Rx#:[id number] Intake, IV Titration 19.183 100 Amount Magnesium Sulfate-D5w Pmx 100 1 gm In Dextrose/Water 1 100ml.bag @ 100 mls/hr IVPB ONCE ONE Rx#: [id number] Norepinephrine 4 mg In 19.183 Sodium Chloride 0.9% 250 ml @ 0.03 MCG/KG/MIN 9. 332 mls/hr IV .Q24H [facility] Rx#:[id number] Oral 240 Output: Urine 500 450 Straight 500 Other: # Voids 1 # Bowel Movements 1 - Exam General appearance: alert, other (Patient is shaking.) Head exam: Present: atraumatic, normocephalic Eye exam: Present: normal appearance, PERRL, EOMI ENT exam: Present: normal oropharynx, other (Right zygomatic region with mild area of erythema and mild tenderness) Neck exam: Present: normal inspection, tenderness (Mild diffuse tenderness. C- collar is in place.) Respiratory exam: Present: normal lung sounds bilaterally Cardiovascular Exam: Present: tachycardia GI/Abdominal exam: Present: soft. Absent: tenderness Extremities exam: Present: normal inspection. Absent: pedal edema, calf tenderness Neurological exam: Present: alert, CN II-XII intact. Absent: motor sensory deficit Cranial nerves: EOM's Intact: Normal Sensory exam: Upper Extremity Light Touch: Normal, Lower Extremity Light Touch: Normal Motor strength exam: RUE: 5, LUE: 5, RLE: 5, LLE: 5 Motor Response: (6) obeys commands Psychiatric exam: Present: normal affect, normal mood Skin exam: Present: normal color - Labs CBC & Chem 7: 08/31/24 05:14 08/31/24 05:14 Labs: Abnormal Lab Results - Last 24 Hours (Table) 08/30/24 08/30/24 08/30/24 Range/Units 08:34 08:34 09:42 WBC 10.7 H (3.8-10.6) k/uL Hgb (11.4-16.0) gm/dL MCHC 29.9 L (31.0-37.0) g/dL Neutrophils # 8.2 H (1.3-7.7) k/uL PT (10.0-12.5) sec INR (<1.2) Sodium (137-145) mmol/L BUN 41 H (7-17) mg/dL Glucose 161 H (74-99) mg/dL POC Glucose (mg/dL) 152 H (70-110) mg/dL Calcium (8.4-10.2) mg/dL TSH (0.465-4.680) mIU/L Urine Appearance (Clear) Urine Protein (Negative) Urine Glucose (UA) (Negative) Urine Ketones (Negative) Urine Blood (Negative) Urine WBC (0-5) /hpf Urine Bacteria (None) /hpf Hyaline Casts (0-2) /lpf Urine Mucus (None) /hpf 08/30/24 08/30/24 08/30/24 Range/Units 10:48 11:20 13:16 WBC (3.8-10.6) k/uL Hgb (11.4-16.0) gm/dL MCHC (31.0-37.0) g/dL Neutrophils # (1.3-7.7) k/uL PT 23.7 H (10.0-12.5) sec INR 2.4 H (<1.2) Sodium (137-145) mmol/L BUN (7-17) mg/dL Glucose (74-99) mg/dL POC Glucose (mg/dL) 139 H (70-110) mg/dL Calcium (8.4-10.2) mg/dL TSH (0.465-4.680) mIU/L Urine Appearance Cloudy H (Clear) Urine Protein 3+ H (Negative) Urine Glucose (UA) Trace H (Negative) Urine Ketones Trace H (Negative) Urine Blood Small H (Negative) Urine WBC 7 H (0-5) /hpf Urine Bacteria Rare H (None) /hpf Hyaline Casts 11 H (0-2) /lpf Urine Mucus Moderate H (None) /hpf 08/30/24 08/30/24 08/30/24 Range/Units 17:45 18:36 20:24 WBC (3.8-10.6) k/uL Hgb (11.4-16.0) gm/dL MCHC (31.0-37.0) g/dL Neutrophils # (1.3-7.7) k/uL PT (10.0-12.5) sec INR (<1.2) Sodium (137-145) mmol/L BUN (7-17) mg/dL Glucose (74-99) mg/dL POC Glucose (mg/dL) 124 H 146 H (70-110) mg/dL Calcium (8.4-10.2) mg/dL TSH 0.202 L (0.465-4.680) mIU/L Urine Appearance (Clear) Urine Protein (Negative) Urine Glucose (UA) (Negative) Urine Ketones (Negative) Urine Blood (Negative) Urine WBC (0-5) /hpf Urine Bacteria (None) /hpf Hyaline Casts (0-2) /lpf Urine Mucus (None) /hpf 08/31/24 08/31/24 08/31/24 Range/Units 05:14 05:14 05:14 WBC (3.8-10.6) k/uL Hgb 11.0 L (11.4-16.0) gm/dL MCHC 29.5 L (31.0-37.0) g/dL Neutrophils # (1.3-7.7) k/uL PT 22.6 H (10.0-12.5) sec INR 2.2 H (<1.2) Sodium 134 L (137-145) mmol/L BUN 38 H (7-17) mg/dL Glucose 69 L (74-99) mg/dL POC Glucose (mg/dL) (70-110) mg/dL Calcium 8.0 L (8.4-10.2) mg/dL TSH (0.465-4.680) mIU/L Urine Appearance (Clear) Urine Protein (Negative) Urine Glucose (UA) (Negative) Urine Ketones (Negative) Urine Blood (Negative) Urine WBC (0-5) /hpf Urine Bacteria (None) /hpf Hyaline Casts (0-2) /lpf Urine Mucus (None) /hpf Microbiology - Last 24 Hours (Table) 08/29/24 18:01 Urine Culture - Preliminary Urine,Voided Strep agalactiae - (group b) Assessment and Plan Assessment: 1. Atrial fibrillation with RVR -Patient does have history of chronic atrial fibrillation and is anticoagulated on Coumadin -Patient placed on IV Cardizem infusion in ED with improved rate control -Cardizem was discontinued; await further cardiology evaluation 2. Hypotension; likely medication effect -Cardizem infusion has been discontinued; hold antihypertensive therapy -Patient received IV fluid bolus in ED; remains on IV Levophed infusion; plan to titrate maintaining MAP of 65 -Intensive care service on board 3. Altered mental status CT of the brain and CT angiogram were negative -Patient has been admitted to complete stroke workup and further neurology evaluation 4. Fall with head injury -Patient had CT of the brain completed in ED which was unremarkable 5. Hypertension; patient was found to be hypotensive in ED; antihypertensive medications remain on hold 6. Hyperlipidemia; Lipitor 20 mg p.o. nightly 7. Diabetes mellitus type II; patient is currently on glipizide 5 mg twice daily, metformin 1000 mg twice daily; monitor Accu-Cheks before every meal and at bedtime with insulin sliding scale DVT prophylaxis; SCDs/Coumadin CODE STATUS; full code
--- NOTE | 2024-08-31 13:15 | P.PN ---
Subjective Progress Note Date: 08/31/24 Principal diagnosis: Altered mental status This is a 63-year-old female with history of multiple medical problems including hypertension, chronic atrial fibrillation, type 2 diabetes, patient was admitted yesterday from the emergency room, she was supposed to be admitted to the cardiac floor, however patient developed hypotension and altered mental status while in the ER, hence patient was admitted to the ICU instead and I was asked to see her on consultation. The patient herself is not a great historian, however I was able to obtain most of the information from the chart. Apparently the patient had a recent fall and hit her head on the stove, and she also had episodes of nausea, and episodes of altered mental status. Son was concerned about her mental status, when she arrived to the ER, patient became unresponsive according to the nurse. Her systolic pressure at the time was in the 70s. Patient received fluid boluses in the ER, and the systolic pressure came up to 89. Her sugar was normal. Patient was noted to have some staring to the left side, patient received medications for her atrial fibrillation with RVR, she was also given Cardizem at 1 point, however her blood pressure came back down to 70/36. Then patient was placed on norepinephrine and transferred to the ICU. During my evaluation the patient was on norepinephrine at 0.02 mcg/kg/min, she had no specific complaints, however she seems to be a little confused, she did not know what city she lives in, she did not know the name of the president, and she did not know the year. But she recognized her family members at bedside and was able to state the names. Apparently the patient received earlier clonidine and hydralazine as well as Cardizem for high blood pressure, but this has been discontinued shortly before she came back to the ICU. Her EKG showed atrial fibrillation with RVR rate of 150 chest x-ray showed no evidence of active disease CT of the brain and cervical spine was basically unremarkable. Her labs showed relatively normal electrolytes except for low potassium of 3.2 troponin was a bit high her viral panel was negative. Echocardiogram from 2013 showed LV function to be normal. And she also had moderate mitral regurgitation at the time. Patient was seen since admission by cardiology and she was seen by neurology. Patient was seen today on 08/31/2024, patient is in the ICU on 2 L nasal cannula her only complaint is some vague headaches. Patient is doing well otherwise, her urine showed some strep agalactiae group B and the patient is receiving Rocephin she is not requiring any pressors, norepinephrine is presently on hold. She is on IV fluid at 75 cc/h. She is on Rocephin and warfarin, I plan to transfer the patient out of the ICU to a monitored bed and selective today. Continues to have intermittent episodes of atrial fibrillation with RVR, e chocardiogram on this admission showed good LV function, increased left atrium diameter, mild mitral regurgitation and mild tricuspid regurgitation with small pericardial effusion without tamponade. Labs today are unremarkable including CBC, INR is 2.2 electrolytes are normal renal profile is normal Objective - Vital Signs Vital signs: Vital Signs Temp 98.5 F 08/31/24 08:00 Pulse 82 08/31/24 11:30 Resp 18 08/31/24 11:30 BP 160/98 08/31/24 11:30 Pulse Ox 98 08/31/24 11:30 FiO2 Intake & Output 08/30/24 08/31/24 08/31/24 18:59 06:59 18:59 Intake Total 0475.083 8557 275 Output Total 500 450 0 Balance 669.183 790 275 Weight 96.8 kg 99 kg Intake: IV 1150 900 275 Sodium Chloride 0.9% 1, 600 900 225 000 ml @ 75 mls/hr IV . [id number] [facility] Rx#:[id number] Sodium Chloride 0.9% 500 500 ml 500 ml @ 999 mls/hr IV .Q31M ONE Rx#:[id number] cefTRIAXone 2 gm In 50 50 Sodium Chloride 0.9% 50 ml @ 100 mls/hr IVPB Q24HR [facility] Rx#:[id number] Intake, IV Titration 19.183 100 Amount Magnesium Sulfate-D5w Pmx 100 1 gm In Dextrose/Water 1 100ml.bag @ 100 mls/hr IVPB ONCE ONE Rx#: [id number] Norepinephrine 4 mg In 19.183 Sodium Chloride 0.9% 250 ml @ 0.03 MCG/KG/MIN 9. 332 mls/hr IV .Q24H [facility] Rx#:[id number] Oral 240 Output: Urine 500 450 0 Straight 500 Other: # Voids 1 1 # Bowel Movements 1 1 - Exam General: Revealed a 63-year-old female in no distress, family members at bedside Skin: Skin is warm and dry and no rashes or lesions are noted. Eye: Pupils are equal, round and reactive to light, extra-ocular movements are intact; there is normal conjunctiva bilaterally. Ears, nose, mouth and throat: There are moist mucous membranes and no oral lesions. Neck: The neck is supple, there is no tenderness or JVD. Cardiovascular: Irregular irregular rhythm, 2/6 systolic murmur throughout the precordium Respiratory: Symmetrical chest expansion clear breath sound bilaterally no rhonchi no wheezes Gastrointestinal: Soft, non-distended, non-tender abdomen without masses or organomegaly noted. There is no rebound or guarding present. Bowel sounds are unremarkable. y. Musculoskeletal: Normal ROM, no tenderness, There is no pedal edema. There is no calf tenderness or swelling. Neurological: Patient is alert, oriented x 3, no gross focal deficit Psychiatric: Normal mood, normal affect, confused mental status. - Labs CBC & Chem 7: 08/31/24 05:14 08/31/24 05:14 Labs: Abnormal Lab Results - Last 24 Hours (Table) 08/30/24 08/30/24 08/30/24 Range/Units 13:16 17:45 18:36 Hgb (11.4-16.0) gm/dL MCHC (31.0-37.0) g/dL PT 23.7 H (10.0-12.5) sec INR 2.4 H (<1.2) Sodium (137-145) mmol/L BUN (7-17) mg/dL Glucose (74-99) mg/dL POC Glucose (mg/dL) 124 H (70-110) mg/dL Calcium (8.4-10.2) mg/dL TSH 0.202 L (0.465-4.680) mIU/L 08/30/24 08/31/24 08/31/24 Range/Units 20:24 05:14 05:14 Hgb (11.4-16.0) gm/dL MCHC (31.0-37.0) g/dL PT 22.6 H (10.0-12.5) sec INR 2.2 H (<1.2) Sodium 134 L (137-145) mmol/L BUN 38 H (7-17) mg/dL Glucose 69 L (74-99) mg/dL POC Glucose (mg/dL) 146 H (70-110) mg/dL Calcium 8.0 L (8.4-10.2) mg/dL TSH (0.465-4.680) mIU/L 08/31/24 08/31/24 Range/Units 05:14 11:00 Hgb 11.0 L (11.4-16.0) gm/dL MCHC 29.5 L (31.0-37.0) g/dL PT (10.0-12.5) sec INR (<1.2) Sodium (137-145) mmol/L BUN (7-17) mg/dL Glucose (74-99) mg/dL POC Glucose (mg/dL) 120 H (70-110) mg/dL Calcium (8.4-10.2) mg/dL TSH (0.465-4.680) mIU/L Microbiology - Last 24 Hours (Table) 08/29/24 18:01 Urine Culture - Preliminary Urine,Voided Strep agalactiae - (group b) Assessment and Plan Assessment: Impression: Atrial fibrillation with RVR Hypotension mostly secondary to medications given to the patient in the ER History of chronic atrial fibrillation Altered mental status, possible CVA Recent fall at home with head injury, however CT of the brain is unremarkable Benign essential hypertension dyslipidemia Type 2 diabetes Recommendation: Cardiology is addressing her atrial fibrillation Neurology is addressing her altered mental status which seems to be back to normal Continue to hold blood pressure medication as blood pressure seems to be soft. Continue Lipitor for dyslipidemia and continue diabetes medications including glipizide and metformin. Continue to monitor Accu-Cheks. Transferred patient to a monitored bed and selective Patient is now off norepinephrine which is presently on hold Reviewed the results of her echocardiogram Continue anticoagulation treatment patient is normally on Coumadin for atrial fibrillation Will continue to follow, being addressed by neurology on the case. Time with Patient: Less than 30
--- NOTE | 2024-08-31 14:38 | P.PN ---
Subjective This is this is a 63-year-old female patient of Dr. TERA Ying with past medical history of hypertension, chronic atrial fibrillation, dyslipidemia, diabetes, obesity. We have been asked to evaluate the patient for atrial fibrillation. Patient presented to the hospital yesterday. According to the patient's son. She had a fall and hit her head on the stove. 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 Earlier in the week on Monday, the son talked to her and she was having nausea and vomiting and they were going to wait 1 more day before they took her to the doctor. She was also complaining of feeling cold. She had a recent muscle tear in June and had not been that active. He also states that there was a medication she was not able to obtain over the weekend but apparently picked up on Monday. Patient's mental status seemed to be off a little bit yesterday but the son states that she seems to be much improved today. Just prior to our arrival, patient became unresponsive according to her nurse. She had been awake and alert 15 minutes prior to this episode. Her systolic blood pressure dropped down to 70. She was given fluid bolus and her systolic pressure was then 89. Blood sugar was 152. There was concern that she was staring to the left side. When she had the unresponsive episode, her son thought that she was just sleeping. Since arrival, patient has been alert and oriented except that she cannot recall the year. This continues to be the case. Patient went for for stat CT of the brain. Subsequently the systolic blood pressure was 70/36 and orders were given for Levophed and patient was to be transferred to the CCU. Patient apparently has had no complaints of chest pain and no history of CABG or stent to the heart. Son states her equilibrium has been off for about a year. Patient has been started on Cardizem drip which was discontinued. We have also discontinued clonidine and hydralazine. -EKG: Atrial fibrillation with ventricular rate of 153 bpm. -Chest x-ray: No acute process. -Pelvic x-ray: No acute fracture. -CT facial bones: No facial bone trauma. -CT brain and cervical spine: No acute bleed or mass effect. No acute trauma to the cervical spine. -Laboratory studies: WBC 11 point, INR 2.8. Sodium 137, potassium 3.2, BUN 31 creatinine 0.89. Troponins 0.114, 0.098, 0.069. Cepheid viral panel negative. -Home cardiac medications: Atenolol 50 mg daily, clonidine 0.3 mg daily, hydralazine 50 mg twice daily, hydrochlorothiazide 25 mg daily, losartan 100 mg daily, simvastatin 40 mg at bedtime, warfarin 5 mg daily. -Lexiscan Cardiolite stress test performed in the office in 2013 was normal myocardial perfusion imaging with normal ejection fraction. -Echocardiogram performed in the office in 2013 revealed normal LV size and function, moderate concentric hypertrophy. Moderate mitral regurgitation, mild to moderate tricuspid regurgitation. 08/31 Patient seen and examined. Patient's home blood pressure medications were held and blood pressure increased and patient back to her normal self. Currently alert and oriented x 3. She remains nauseous. She denies any chest pain or pressure. Denies any significant abdominal pain. Echocardiogram performed with ejection fraction 55%. Blood pressure remains elevated mainly systolics 160s to 180s with diastolics in the 90s to 110 range. CTA performed which showed no carotid stenosis and relatively normal [place]. EEG performed with background slowing. Physical examination: Gen: This is a 63-year-old female in no acute distress VS: reviewed HEENT: Head is atraumatic, normocephalic. Pupils equal, round. Sclerae is anicteric. NECK: Supple. No JVD. LUNGS: Clear to auscultation. No wheezes or rhonchi. No intercostal retractions. HEART: Giller rate and rhythm. Systolic murmur. ABDOMEN: Soft No tenderness. EXTREMITIES: No pedal edema. No calf tenderness. NEUROLOGICAL: Patient is awake, alert and oriented x3. Assessment: Chronic atrial fibrillation with RVR, currently rate controlled Unresponsive episode possible CVA, however more likely related to hypoperfusion Fall at home with head injury Hypertension Dyslipidemia Diabetes mellitus type 2 Obesity with BMI of 30 Persistent nausea Plan: Most of the patient's unresponsiveness and altered mental status improved after blood pressure improved. Suspect mainly related to hypoperfusion. No significant carotid disease. Per family patient likely was not getting Catapres at home and would discontinue this entirely. Restart losartan if she is able to have this oral. If unable to tolerate oral medications may consider Cardene drip. Neuro recommendations appreciated with possible lumbar puncture. If consideration would be okay with holding Coumadin and starting heparin drip. Echocardiogram showing preserved EF and minimally elevated troponins and do not suspect acute coronary syndrome. Continue with current supportive care. Further recommendations to follow. Objective - Vital Signs Vital signs: Vital Signs Temp 98.0 F 08/31/24 12:00 Pulse 98 08/31/24 13:00 Resp 20 08/31/24 13:00 BP 161/97 08/31/24 13:00 Pulse Ox 98 08/31/24 13:00 FiO2 Intake & Output 08/30/24 08/31/24 08/31/24 18:59 06:59 18:59 Intake Total 7311.237 1699 425 Output Total 500 450 0 Balance 669.183 790 425 Weight 96.8 kg 99 kg Intake: IV 1150 900 425 Sodium Chloride 0.9% 1, 600 900 375 000 ml @ 75 mls/hr IV . [id number] [facility] Rx#:[id number] Sodium Chloride 0.9% 500 500 ml 500 ml @ 999 mls/hr IV .Q31M ONE Rx#:[id number] cefTRIAXone 2 gm In 50 50 Sodium Chloride 0.9% 50 ml @ 100 mls/hr IVPB Q24HR [facility] Rx#:[id number] Intake, IV Titration 19.183 100 Amount Magnesium Sulfate-D5w Pmx 100 1 gm In Dextrose/Water 1 100ml.bag @ 100 mls/hr IVPB ONCE ONE Rx#: [id number] Norepinephrine 4 mg In 19.183 Sodium Chloride 0.9% 250 ml @ 0.03 MCG/KG/MIN 9. 332 mls/hr IV .Q24H [facility] Rx#:[id number] Oral 240 Output: Urine 500 450 0 Straight 500 Other: # Voids 1 1 # Bowel Movements 1 1 - Labs CBC & Chem 7: 08/31/24 05:14 08/31/24 05:14 Labs: Abnormal Lab Results - Last 24 Hours (Table) 08/30/24 08/30/24 08/30/24 Range/Units 17:45 18:36 20:24 Hgb (11.4-16.0) gm/dL MCHC (31.0-37.0) g/dL PT (10.0-12.5) sec INR (<1.2) Sodium (137-145) mmol/L BUN (7-17) mg/dL Glucose (74-99) mg/dL POC Glucose (mg/dL) 124 H 146 H (70-110) mg/dL Calcium (8.4-10.2) mg/dL TSH 0.202 L (0.465-4.680) mIU/L 08/31/24 08/31/24 08/31/24 Range/Units 05:14 05:14 05:14 Hgb 11.0 L (11.4-16.0) gm/dL MCHC 29.5 L (31.0-37.0) g/dL PT 22.6 H (10.0-12.5) sec INR 2.2 H (<1.2) Sodium 134 L (137-145) mmol/L BUN 38 H (7-17) mg/dL Glucose 69 L (74-99) mg/dL POC Glucose (mg/dL) (70-110) mg/dL Calcium 8.0 L (8.4-10.2) mg/dL TSH (0.465-4.680) mIU/L 08/31/24 Range/Units 11:00 Hgb (11.4-16.0) gm/dL MCHC (31.0-37.0) g/dL PT (10.0-12.5) sec INR (<1.2) Sodium (137-145) mmol/L BUN (7-17) mg/dL Glucose (74-99) mg/dL POC Glucose (mg/dL) 120 H (70-110) mg/dL Calcium (8.4-10.2) mg/dL TSH (0.465-4.680) mIU/L Microbiology - Last 24 Hours (Table) 08/29/24 18:01 Urine Culture - Preliminary Urine,Voided Strep agalactiae - (group b)
[2024-08-31] MEDS: LOSARTAN 50 MG TAB PO SCH (14:53)
[2024-08-31] MEDS: hydrALAZINE HCL 20 MG/ML 1 ML VIAL IVP PRN ×2 (14:53→17:24)
[2024-08-31 16:12] LABS: Glucose,Whole Blood 179 mg/dL (70-110)
[2024-08-31] MEDS ORDERED: METOCLOPRAMIDE 5 MG/ML 2 ML VIAL IVP PRN (18:26)
[2024-08-31] MEDS: WARFARIN 5 MG TAB PO ONE (18:34)
[2024-08-31 20:00] LABS: Glucose,Whole Blood 176 mg/dL (70-110)
[2024-09-01 05:55] LABS: Glucose,Whole Blood 154 mg/dL (70-110)
[2024-09-01 08:22] LABS: HCT 39.4 % (34.0-46.0); HGB 11.8 gm/dL (11.4-16.0); Hypochromasia Marked; MCH 29.1 pg (25.0-35.0); MCV 97.1 fL (80.0-100.0); Mean Platelet Volume 9.2; Platelet Count 232 k/uL (150-450); RBC 4.05 m/uL (3.80-5.40); RDW 14.3 % (11.5-15.5); WBC 8.6 k/uL (3.8-10.6)
[2024-09-01 08:36] LABS: INR 3.1 (<1.2); Prothrombin Time 30.5 sec (10.0-12.5)
[2024-09-01 08:51] LABS: African American GFR (CKD) >90 (>60 ml/min/1.73 sqM); Anion Gap 7 mmol/L; Blood Urea Nitrogen 19 mg/dL (7-17); Calcium 8.4 mg/dL (8.4-10.2); Carbon Dioxide 23 mmol/L (22-30); Chloride 103 mmol/L (98-107); Glucose 143 mg/dL (74-99); Magnesium 1.7 mg/dL (1.6-2.3); Non-African American GFR(CKD) >90 (>60 ml/min/1.73 sqM); Potassium 4.3 mmol/L (3.5-5.1); Sodium 133 mmol/L (137-145)
[2024-09-01 11:26] LABS: Glucose,Whole Blood 116 mg/dL (70-110)
--- NOTE | 2024-09-01 11:36 | P.PN ---
Subjective Progress Note Date: 08/31/[address] Dr[address] Hector Pennington. Please refer to his note for details. Patient is a 63-year-old female with episode of unresponsiveness. Patient's family mentions that she was acting confused on the phone and texting. Patient's brother went in, and witnessed patient falling down. There was no loss of consciousness and she was brought to the hospital. As per EMS flowsheet, her vitals were stable at the scene with blood pressure 125/90. Pulse rate was 70, respiration 18, saturation 99%. EKG showed atrial fibrillation. CT head/CTA negative. Dr. Pennington felt it was related to significant hypotension. EEG was negative for seizures. He went with normal blood pressure, he was noted to be confused in the hospital and handwriting was off. Patient was seen for a follow-up. Patient's daughter was present by the bedside. The nurse reports that patient has been having very labile blood pressure, going hypotension and hypertension. With this fluctuating blood pressure, patient had stroke code activated. Patient states that she had a headache today that lasted for 2 hours. At pre sent she has no headaches. She did have some nausea. Family mentions that patient is cognitively completely intact. No history of dementia. However since she has been hospitalized, her memory has been "on and off". She remembers most questions. Some of the workup during this hospital visit consisted of: Hospital visit her blood pressure was as low as 80s over 50s with a respiratory rate of 8 INR on presentation is 2.8 Initial serum glucose was 206. Troponin initial presentation is 0.114 and is trending down. I reviewed the rest of the lab workup Urinalysis is cloudy, leukocyte esterase is moderate, urine white blood cells 22. CT cervical spine is reported as no acute trauma. Repeat CT of the head is reported as no acute intracranial hemorrhage or midline shift. No significant change from [address] angiography of the head and neck is reported as no flow-limiting stenosis bilateral carotid bifurcation. There is some fusiform prominence of the anterior communicating artery. [place] otherwise appears within normal limits. Objective - Vital Signs Vital signs: Vital Signs Temp 98.0 F 08/31/24 12:00 Pulse 98 08/31/24 13:00 Resp 20 08/31/24 13:00 BP 161/97 08/31/24 13:00 Pulse Ox 98 08/31/24 13:00 FiO2 Intake & Output 08/30/24 08/31/24 08/31/24 18:59 06:59 18:59 Intake Total 0409.951 0306 425 Output Total 500 450 0 Balance 669.183 790 425 Weight 96.8 kg 99 kg Intake: IV 1150 900 425 Sodium Chloride 0.9% 1, 600 900 375 000 ml @ 75 mls/hr IV . [id number] [facility] Rx#:[id number] Sodium Chloride 0.9% 500 500 ml 500 ml @ 999 mls/hr IV .Q31M ONE Rx#:[id number] cefTRIAXone 2 gm In 50 50 Sodium Chloride 0.9% 50 ml @ 100 mls/hr IVPB Q24HR [facility] Rx#:[id number] Intake, IV Titration 19.183 100 Amount Magnesium Sulfate-D5w Pmx 100 1 gm In Dextrose/Water 1 100ml.bag @ 100 mls/hr IVPB ONCE ONE Rx#: [id number] Norepinephrine 4 mg In 19.183 Sodium Chloride 0.9% 250 ml @ 0.03 MCG/KG/MIN 9. 332 mls/hr IV .Q24H [facility] Rx#:[id number] Oral 240 Output: Urine 500 450 0 Straight 500 Other: # Voids 1 1 # Bowel Movements 1 1 - Exam On examination patient is laying in the bed, on her right side. She is otherwise alert and awake and fully oriented. She knows it is August 2024 and that she is in [facility] on [place]. She knows that she has 2 children. Her speech and language functions are normal. On cranial examination pupils are equal, round and reactive to light, visual mistry are full on confrontation, and there is no neglect on double simultaneous stimulation. Her face is symmetric. Tongue protrudes to midline. On muscle strength testing there is no pronator drift and the strength is normal in the arms and legs. No ataxia for [id number] testing. Sensory to touch is equal with no neglect. - Labs CBC & Chem 7: 09/01/24 07:09 09/01/24 07:09 Labs: Abnormal Lab Results - Last 24 Hours (Table) 08/30/24 08/30/24 08/30/24 Range/Units 17:45 18:36 20:24 Hgb (11.4-16.0) gm/dL MCHC (31.0-37.0) g/dL PT (10.0-12.5) sec INR (<1.2) Sodium (137-145) mmol/L BUN (7-17) mg/dL Glucose (74-99) mg/dL POC Glucose (mg/dL) 124 H 146 H (70-110) mg/dL Calcium (8.4-10.2) mg/dL TSH 0.202 L (0.465-4.680) mIU/L 08/31/24 08/31/24 08/31/24 Range/Units 05:14 05:14 05:14 Hgb 11.0 L (11.4-16.0) gm/dL MCHC 29.5 L (31.0-37.0) g/dL PT 22.6 H (10.0-12.5) sec INR 2.2 H (<1.2) Sodium 134 L (137-145) mmol/L BUN 38 H (7-17) mg/dL Glucose 69 L (74-99) mg/dL POC Glucose (mg/dL) (70-110) mg/dL Calcium 8.0 L (8.4-10.2) mg/dL TSH (0.465-4.680) mIU/L 08/31/24 Range/Units 11:00 Hgb (11.4-16.0) gm/dL MCHC (31.0-37.0) g/dL PT (10.0-12.5) sec INR (<1.2) Sodium (137-145) mmol/L BUN (7-17) mg/dL Glucose (74-99) mg/dL POC Glucose (mg/dL) 120 H (70-110) mg/dL Calcium (8.4-10.2) mg/dL TSH (0.465-4.680) mIU/L Microbiology - Last 24 Hours (Table) 08/29/24 18:01 Urine Culture - Preliminary Urine,Voided Strep agalactiae - (group b) Assessment and Plan Assessment: This is a 63-year-old woman who presents emergency department because of a fall. She does not recall what happened but denies any loss of consciousness. In the hospital she had another episode that she was unresponsive but her blood pressure during this hospital visit was as low as 80s over 40s. She had 2 CT of the head which are unremarkable and CT angiography of the head and neck which is also negative for any large vessel occlusion or significant stenosis. Episode of unresponsiveness: Probable due to her significant hypotensive episode. Notable right sided weakness patient complained of but was not exactly sure: If it truly due to TIA Hypo to areflexia of bilateral lower extremity: Unsure if this is acute or chronic. Has chronic diabetes which can result to peripheral neuropathy. Dr. Pennington was concerned to rule out acute demyelinating polyneuropathy such as GBS Significant hypotensive with bradycardia. History of atrial fibrillation on Coumadin Chronic diabetes mellitus Underlying history of hypertension Hypercholesteremia Plan: CT lumbar spine revealed age-indeterminate central superior endplate compression deformity versus Schmorl's node at L1. Approximately 20% height loss centrally. No retropulsion. Correlate with point tenderness versus MRI. Mild multilevel degenerative disc disease. MRI of lumbar spine initiated by Dr. Pennington. EEG was abnormal due to background slowing, suggestive of mild encephalopathy. No epileptiform activity was seen. Hemoglobin A1c 6.3 Await MRI of the brain to rule out any underlying stroke, initiated by Dr. Pennington Consulted PT and OT Her mentation seems to be normal. No indication for lumbar puncture at this time. Commend EMG with nerve conduction study as an outpatient of the [facility] to rule out any neuropathy TSH 0.202, B12 450, folate 18.7. We will defer to IM to address abnormal thyroid functions. Please avoid any further hypotensive episode PT and OT. Will defer the rest of the medical management to primary and other specialist
--- NOTE | 2024-09-01 13:43 | P.PN ---
Subjective Progress Note Date: 09/01/24 This is a 63-year-old female with history of multiple medical problems including hypertension, chronic atrial fibrillation, type 2 diabetes, patient was admitted yesterday from the emergency room, she was supposed to be admitted to the cardiac floor, however patient developed hypotension and altered mental status while in the ER, hence patient was admitted to the ICU instead and I was asked to see her on consultation. The patient herself is not a great historian, however I was able to obtain most of the information from the chart. Apparently the patient had a recent fall and hit her head on the stove, and she also had episodes of nausea, and episodes of altered mental status. Son was concerned about her mental status, when she arrived to the ER, patient became unresponsive according to the nurse. Her systolic pressure at the time was in the 70s. Patient received fluid boluses in the ER, and the systolic pressure came up to 89. Her sugar was normal. Patient was noted to have some staring to the left side, patient received medications for her atrial fibrillation with RVR, she was also given Cardizem at 1 point, however her blood pressure came back down to 70/36. Then patient was placed on norepinephrine and transferred to the ICU. During my evaluation the patient was on norepinephrine at 0.02 mcg/kg/min, she had no specific complaints, however she seems to be a little confused, she did not know what city she lives in, she did not know the name of the president, and she did not know the year. But she recognized her family members at bedside and was able to state the names. Apparently the patient received earlier clonidine and hydralazine as well as Cardizem for high blood pressure, but this has been discontinued shortly before she came back to the ICU. Her EKG showed atrial fibrillation with RVR rate of 150 chest x-ray showed no evidence of active disease CT of the brain and cervical spine was basically unremarkable. Her labs showed relatively normal electrolytes except for low potassium of 3.2 troponin was a bit high her viral panel was negative. Echocardiogram from 2013 showed LV function to be normal. And she also had moderate mitral regurgitation at the time. Patient was seen since admission by cardiology and she was seen by neurology. Patient was seen today on 08/31/2024, patient is in the ICU on 2 L nasal cannula her only complaint is some vague headaches. Patient is doing well otherwise, her urine showed some strep agalactiae group B and the patient is receiving Rocephin she is not requiring any pressors, norepinephrine is presently on hold. She is on IV fluid at 75 cc/h. She is on Rocephin and warfarin, I plan to transfer the patient out of the ICU to a monitored bed and selective today. Continues to have intermittent episodes of atrial fibrillation with RVR, echocardiogram on this admission showed good LV function, increased left atrium diameter, mild mitral regurgitation and mild tricuspid regurgitation with small pericardial effusion without tamponade. Labs today are unremarkable including CBC, INR is 2.2 electrolytes are normal renal profile is normal The patient is seen today September 01, 2024 in follow-up on the selective care unit. She was transferred out of the intensive care unit yesterday. She is currently up with assistance in her room. Awake and alert in no acute distress. Alert and oriented x 3. Her family is at the bedside and feels she is almost back to normal but still feels a little confused at times, slow to respond at times. Urine culture was positive for E. coli and strep agalactiae group B. White count 8.6. Hemoglobin 11.8. Platelets 232. INR 3.1. Sodium 133. Potassium 4.3. Bicarb 23. BUN 19. Creatinine 0.65. Glucose 143. She remains on ceftriaxone. Warfarin for anticoagulation. Remains on statins. Objective - Vital Signs Vital signs: Vital Signs Temp 98.3 F 09/01/24 11:46 Pulse 89 09/01/24 11:46 Resp 18 09/01/24 11:46 BP 152/89 09/01/24 11:46 Pulse Ox 96 09/01/24 11:46 FiO2 Intake & Output 08/31/24 09/01/24 09/01/24 18:59 06:59 18:59 Intake Total 800 150 20 Output Total 400 400 Balance 400 -250 20 Weight 100.5 kg Intake: IV 800 150 20 Invasive Line 1 10 Invasive Line 2 10 Sodium Chloride 0.9% 1, 750 150 000 ml @ 75 mls/hr IV . [id number] [facility] Rx#:[id number] cefTRIAXone 2 gm In 50 Sodium Chloride 0.9% 50 ml @ 100 mls/hr IVPB Q24HR [facility] Rx#:[id number] Output: Urine 400 400 Other: Voiding Method Bedside Commode Bedside Commode # Voids 1 1 # Bowel Movements 1 - Exam GENERAL EXAM: Alert, active, 63-year-old female, on room air, comfortable in no apparent distress. HEAD: Normocephalic. EYES: Normal reaction of pupils, equal size. NOSE: Clear with pink turbinates. THROAT: No erythema or exudates. NECK: No masses, no JVD. CHEST: No chest wall deformity. LUNGS: Equal air entry with no crackles, wheeze, rhonchi or dullness. CVS: S1 and S2 normal with no audible murmur, irregular rhythm. ABDOMEN: No hepatosplenomegaly, normal bowel sounds, no guarding or rigidity. SPINE: No scoliosis or deformity SKIN: No rashes CENTRAL NERVOUS SYSTEM: No focal deficits, tone is normal in all 4 extremities. EXTREMITIES: There is no peripheral edema. No clubbing, no cyanosis. Peripheral pulses are intact. - Labs CBC & Chem 7: 09/01/24 07:09 09/01/24 07:09 Labs: Abnormal Lab Results - Last 24 Hours (Table) 08/31/24 08/31/24 08/31/24 Range/Units 05:14 16:10 19:58 MCHC (31.0-37.0) g/dL PT (10.0-12.5) sec INR (<1.2) Sodium (137-145) mmol/L BUN (7-17) mg/dL Glucose (74-99) mg/dL POC Glucose (mg/dL) 179 H 176 H (70-110) mg/dL Hemoglobin A1c 6.3 H (<=6.0) % 09/01/24 09/01/24 09/01/24 Range/Units 05:50 07:09 07:09 MCHC (31.0-37.0) g/dL PT 30.5 H (10.0-12.5) sec INR 3.1 H (<1.2) Sodium 133 L (137-145) mmol/L BUN 19 H (7-17) mg/dL Glucose 143 H (74-99) mg/dL POC Glucose (mg/dL) 154 H (70-110) mg/dL Hemoglobin A1c (<=6.0) % 09/01/24 09/01/24 Range/Units 07:09 11:24 MCHC 30.0 L (31.0-37.0) g/dL PT (10.0-12.5) sec INR (<1.2) Sodium (137-145) mmol/L BUN (7-17) mg/dL Glucose (74-99) mg/dL POC Glucose (mg/dL) 116 H (70-110) mg/dL Hemoglobin A1c (<=6.0) % Microbiology - Last 24 Hours (Table) 08/29/24 18:01 Urine Culture - Final Urine,Voided Escherichia coli Strep agalactiae - (group b) Assessment and Plan Assessment: Atrial fibrillation with RVR, improved, anticoagulated with warfarin Hypotension mostly secondary to medications given to the patient in the ER, r ecovered History of chronic atrial fibrillation Altered mental status, possible CVA Recent fall at home with head injury, however CT of the brain is unremarkable Benign essential hypertension dyslipidemia Type 2 diabetes Plan: The patient was seen and evaluated Labs and medications reviewed Up ambulating with assistance Alert and oriented x 3 Stable and on room air Continued on statins anticoagulated with warfarin Neurology following closely I have personally seen and examined the patient, performed the documentation and the assessment and plan as written. Number of minutes spent on the visit: 10. Dictation was produced using [employer] dictation software. Please excuse any grammatical, word or spelling errors.
--- NOTE | 2024-09-01 14:11 | P.PN ---
Subjective Progress Note Date: 09/01/24 This is this is a 63-year-old female patient of Dr. TERA Ying with past medical history of hypertension, chronic atrial fibrillation, dyslipidemia, diabetes, obesity. We have been asked to evaluate the patient for atrial fibrillation. Patient presented to the hospital yesterday. According to the patient's son. She had a fall and hit her head on the stove. 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 Earlier in the week on Monday, the son talked to her and she was having nausea and vomiting and they were going to wait 1 more day before they took her to the doctor. She was also complaining of feeling cold. She had a recent muscle tear in her lower leg in June and had not been that active. He also states that there was a medication she was not able to obtain over the weekend but apparently picked up on Monday. Patient's mental status seemed to be off a little bit yesterday but the son states that she seems to be much improved today. Just prior to our arrival, patient became unresponsive according to her nurse. She had been awake and alert 15 minutes prior to this episode. Her systolic blood pressure dropped down to 70. She was given fluid bolus and her systolic pressure was then 89. Blood sugar was 152. There was concern that she was staring to the left side. When she had the unresponsive episode, her son thought that she was just sleeping. Since arrival, patient has been alert and oriented except that she cannot recall the year. This continues to be the case. Patient went for for stat CT of the brain. Subsequently the systolic blood pressure was 70/36 and orders were given for Levophed and patient was to be transferred to the CCU. Patient apparently has had no complaints of chest pain and no history of CABG or stent to the heart. Son states her equilibrium has been off for about a year. Patient has been started on Cardizem drip which was discontinued. We have also discontinued clonidine and hydralazine. -EKG: Atrial fibrillation with ventricular rate of 153 bpm. -Chest x-ray: No acute process. -Pelvic x-ray: No acute fracture. -CT facial bones: No facial bone trauma. -CT brain and cervical spine: No acute bleed or mass effect. No acute trauma to the cervical spine. -Laboratory studies: WBC 11 point, INR 2.8. Sodium 137, potassium 3.2, BUN 31 creatinine 0.89. Troponins 0.114, 0.098, 0.069. Cepheid viral panel negative. -Home cardiac medications: Atenolol 50 mg daily, clonidine 0.3 mg daily, hydralazine 50 mg twice daily, hydrochlorothiazide 25 mg daily, losartan 100 mg daily, simvastatin 40 mg at bedtime, warfarin 5 mg daily. -Lexiscan Cardiolite stress test performed in the office in 2013 was normal myocardial perfusion imaging with normal ejection fraction. -Echocardiogram performed in the office in 2013 revealed normal LV size and function, moderate concentric hypertrophy. Moderate mitral regurgitation, mild to moderate tricuspid regurgitation. 08/31 Patient seen and examined. Patient's home blood pressure medications were held and blood pressure increased and patient back to her normal self. Currently alert and oriented x 3. She remains nauseous. She denies any chest pain or pressure. Denies any significant abdominal pain. Echocardiogram performed with ejection fraction 55%. Blood pressure remains elevated mainly systolics 160s to 180s with diastolics in the 90s to 110 range. CTA performed which showed no carotid stenosis and relatively normal [place]. EEG performed with background slowing. 09/01 Patient seen and examined on the cardiac stepdown unit. Patient has been transferred out of the intensive care unit. Patient has right periorbital ed wesley. She does not know why this occurred. She denies any fall or injury. Blood pressure 152/89, heart rate 89, pulse ox 96% on room air. Repeat blood work reveals INR 3.1. Potassium 4.3, BUN 19 and creatinine 0.65. Losartan was resumed yesterday. Patient's mentation is back to baseline. MRI of the brain and lumbar spine are pending. Physical examination: Gen: This is a 63-year-old female in no acute distress VS: reviewed HEENT: Head is atraumatic, normocephalic. Pupils equal, round. Sclerae is anicteric. NECK: Supple. No JVD. LUNGS: Clear to auscultation. No wheezes or rhonchi. No intercostal retractions. HEART: Giller rate and rhythm. Systolic murmur. ABDOMEN: Soft No tenderness. EXTREMITIES: No pedal edema. No calf tenderness. NEUROLOGICAL: Patient is awake, alert and oriented x3. Assessment: Chronic atrial fibrillation with RVR, currently rate controlled NSTEMI Unresponsive episode possible CVA, however more likely related to hypoperfusion Fall at home with head injury Hypertension Dyslipidemia Diabetes mellitus type 2 Obesity with BMI of 30 Persistent nausea Plan: Most of the patient's unresponsiveness and altered mental status improved after blood pressure improved. Suspect mainly related to hypoperfusion. No significant carotid disease. Discontinue Catapres at discharge. Echocardiogram showing preserved EF and minimally elevated troponins and do not suspect acute coronary syndrome. Continue with current supportive care. Further recommendations to follow. Nurse practitioner note has been reviewed, I agree with documented findings and plan of care. Patient was seen and examined. Objective - Vital Signs Vital signs: Vital Signs Temp 97.9 F 09/01/24 08:54 Pulse 102 H 09/01/24 08:54 Resp 18 09/01/24 08:54 BP 138/88 09/01/24 08:54 Pulse Ox 96 09/01/24 08:54 FiO2 Intake & Output 08/31/24 09/01/24 09/01/24 18:59 06:59 18:59 Intake Total 800 150 10 Output Total 400 400 Balance 400 -250 10 Weight 100.5 kg Intake: IV 800 150 10 Invasive Line 1 5 Invasive Line 2 5 Sodium Chloride 0.9% 1, 750 150 000 ml @ 75 mls/hr IV . [id number] [facility] Rx#:[id number] cefTRIAXone 2 gm In 50 Sodium Chloride 0.9% 50 ml @ 100 mls/hr IVPB Q24HR [facility] Rx#:[id number] Output: Urine 400 400 Other: Voiding Method Bedside Commode Bedside Commode # Voids 1 1 # Bowel Movements 1 - Labs CBC & Chem 7: 09/01/24 07:09 09/01/24 07:09 Labs: Abnormal Lab Results - Last 24 Hours (Table) 08/31/24 08/31/24 08/31/24 Range/Units 05:14 16:10 19:58 MCHC (31.0-37.0) g/dL PT (10.0-12.5) sec INR (<1.2) Sodium (137-145) mmol/L BUN (7-17) mg/dL Glucose (74-99) mg/dL POC Glucose (mg/dL) 179 H 176 H (70-110) mg/dL Hemoglobin A1c 6.3 H (<=6.0) % 09/01/24 09/01/24 09/01/24 Range/Units 05:50 07:09 07:09 MCHC (31.0-37.0) g/dL PT 30.5 H (10.0-12.5) sec INR 3.1 H (<1.2) Sodium 133 L (137-145) mmol/L BUN 19 H (7-17) mg/dL Glucose 143 H (74-99) mg/dL POC Glucose (mg/dL) 154 H (70-110) mg/dL Hemoglobin A1c (<=6.0) % 09/01/24 Range/Units 07:09 MCHC 30.0 L (31.0-37.0) g/dL PT (10.0-12.5) sec INR (<1.2) Sodium (137-145) mmol/L BUN (7-17) mg/dL Glucose (74-99) mg/dL POC Glucose (mg/dL) (70-110) mg/dL Hemoglobin A1c (<=6.0) % Microbiology - Last 24 Hours (Table) 08/29/24 18:01 Urine Culture - Final Urine,Voided Escherichia coli Strep agalactiae - (group b)
--- NOTE | 2024-09-01 14:12 | P.PN ---
Subjective Progress Note Date: 09/01/24 63-year-old female, history of hypertension, chronic atrial fibrillation, dyslipidemia, diabetes, obesity, presented to the hospital after she had a fall and hit her head on the stove. 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 Earlier in the week on Monday, the son talked to her and she was having nausea and vomiting and they were going to wait 1 more day before they took her to the doctor. She had a recent muscle tear in June and had not been that active. He also states that there was a medication she was not able to obtain over the weekend but apparently picked up on Monday. Patient's mental status seemed to be off a little bit yesterday but the son states that she seems to be much improved today. In the ED patient was found to be in atrial fibrillation with RVR and was placed on IV Cardizem infusion. While in ED, patient became unresponsive according to her nurse. She had been awake and alert 15 minutes prior to this episode. Her systolic blood pressure dropped down to 70. She was given fluid bolus and her systolic pressure was then 89. Blood sugar was 152. There was concern that she was staring to the left side. When she had the unresponsive episode, her son thought that she was just sleeping. Since arrival, patient has been alert and oriented except that she cannot recall the year. Patient went for stat CT of the brain. Subsequently the systolic blood pressure was 70/36 and orders were given for Levophed and patient was to be transferred to the CCU. Her EKG showed atrial fibrillation with RVR rate of 150 chest x-ray showed no evidence of active disease CT of the brain and cervical spine was basically unremarkable. Her labs showed relatively normal electrolytes except for low potassium of 3.2 troponin was a bit high her viral panel was negative. Echocardiogram from 2013 showed LV function to be normal. And she also had moderate mitral regurgitation at the time. 24-hour interval change 09/01/2024 Patient is seen and evaluated in follow-up on the selective care unit. She was transferred out of the intensive care unit yesterday. She is currently up with assistance in her room. Awake and alert in no acute distress. Alert and oriented x 3. Her family is at the bedside and feels she is almost back to normal but still feels a little confused at times, slow to respond at times. Urine culture was positive for E. coli and strep agalactiae group B. White count 8.6. Hemoglobin 11.8. Platelets 232. INR 3.1. Sodium 133. Potassium 4.3. Bicarb 23. BUN 19. Creatinine 0.65. Glucose 143. Patient remains on ceftriaxone. Warfarin for anticoagulation. Remains on statins. Cardiology on board for atrial fibrillation with RVR and accelerated hypertension and Catapres has been discontinued; losartan is resumed Objective - Vital Signs Vital signs: Vital Signs Temp 97.9 F 09/01/24 08:54 Pulse 102 H 09/01/24 08:54 Resp 18 09/01/24 08:54 BP 138/88 09/01/24 08:54 Pulse Ox 96 09/01/24 08:54 FiO2 Intake & Output 08/31/24 09/01/24 09/01/24 18:59 06:59 18:59 Intake Total 800 150 10 Output Total 400 400 Balance 400 -250 10 Weight 100.5 kg Intake: IV 800 150 10 Invasive Line 1 5 Invasive Line 2 5 Sodium Chloride 0.9% 1, 750 150 000 ml @ 75 mls/hr IV . [id number] [facility] Rx#:[id number] cefTRIAXone 2 gm In 50 Sodium Chloride 0.9% 50 ml @ 100 mls/hr IVPB Q24HR [facility] Rx#:[id number] Output: Urine 400 400 Other: Voiding Method Bedside Commode Bedside Commode # Voids 1 1 # Bowel Movements 1 - Exam General appearance: alert, other (Patient is shaking.) Head exam: Present: atraumatic, normocephalic Eye exam: Present: normal appearance, PERRL, EOMI ENT exam: Present: normal oropharynx, other (Right zygomatic region with mild area of erythema and mild tenderness) Neck exam: Present: normal inspection, tenderness (Mild diffuse tenderness. C- collar is in place.) Respiratory exam: Present: normal lung sounds bilaterally Cardiovascular Exam: Present: tachycardia GI/Abdominal exam: Present: soft. Absent: tenderness Extremities exam: Present: normal inspection. Absent: pedal edema, calf tenderness Neurological exam: Present: alert, CN II-XII intact. Absent: motor sensory deficit Cranial nerves: EOM's Intact: Normal Sensory exam: Upper Extremity Light Touch: Normal, Lower Extremity Light Touch: Normal Motor strength exam: RUE: 5, LUE: 5, RLE: 5, LLE: 5 Motor Response: (6) obeys commands Psychiatric exam: Present: normal affect, normal mood Skin exam: Present: normal color - Labs CBC & Chem 7: 09/01/24 07:09 09/01/24 07:09 Labs: Abnormal Lab Results - Last 24 Hours (Table) 08/31/24 08/31/24 08/31/24 Range/Units 05:14 11:00 16:10 MCHC (31.0-37.0) g/dL PT (10.0-12.5) sec INR (<1.2) Sodium (137-145) mmol/L BUN (7-17) mg/dL Glucose (74-99) mg/dL POC Glucose (mg/dL) 120 H 179 H (70-110) mg/dL Hemoglobin A1c 6.3 H (<=6.0) % 08/31/24 09/01/24 09/01/24 Range/Units 19:58 05:50 07:09 MCHC (31.0-37.0) g/dL PT (10.0-12.5) sec INR (<1.2) Sodium 133 L (137-145) mmol/L BUN 19 H (7-17) mg/dL Glucose 143 H (74-99) mg/dL POC Glucose (mg/dL) 176 H 154 H (70-110) mg/dL Hemoglobin A1c (<=6.0) % 09/01/24 09/01/24 Range/Units 07:09 07:09 MCHC 30.0 L (31.0-37.0) g/dL PT 30.5 H (10.0-12.5) sec INR 3.1 H (<1.2) Sodium (137-145) mmol/L BUN (7-17) mg/dL Glucose (74-99) mg/dL POC Glucose (mg/dL) (70-110) mg/dL Hemoglobin A1c (<=6.0) % Microbiology - Last 24 Hours (Table) 08/29/24 18:01 Urine Culture - Final Urine,Voided Escherichia coli Strep agalactiae - (group b) Assessment and Plan Assessment: 1. Atrial fibrillation with RVR -Patient does have history of chronic atrial fibrillation and is anticoagulated on Coumadin -Patient placed on IV Cardizem infusion in ED with improved rate control -Cardizem was discontinued; await further cardiology evaluation 2. Hypotension; likely medication effect -Cardizem infusion has been discontinued; hold antihypertensive therapy -Patient received IV fluid bolus in ED; remains on IV Levophed infusion; plan to titrate maintaining MAP of 65 -Intensive care service on board 3. Altered mental status CT of the brain and CT angiogram were negative -Patient has been admitted to complete stroke workup and further neurology evaluation 4. Fall with head injury -Patient had CT of the brain completed in ED which was unremarkable 5. Hypertension; patient was found to be hypotensive in ED; antihypertensive medications remain on hold 6. Hyperlipidemia; Lipitor 20 mg p.o. nightly 7. Diabetes mellitus type II; patient is currently on glipizide 5 mg twice daily, metformin 1000 mg twice daily; monitor Accu-Cheks before every meal and at bedtime with insulin sliding scale DVT prophylaxis; SCDs/Coumadin CODE STATUS; full code
[2024-09-01 16:36] LABS: Glucose,Whole Blood 120 mg/dL (70-110)
[2024-09-01] MEDS: WARFARIN 0.5 MG TAB PO ONE (17:01)
[2024-09-01 20:14] LABS: Glucose,Whole Blood 207 mg/dL (70-110)
[2024-09-02 06:10] LABS: Glucose,Whole Blood 124 mg/dL (70-110)
[2024-09-02 08:02] LABS: INR 2.8 (<1.2)
[2024-09-02] MEDS: MAGNESIUM SULFATE-D5W PMX 1 GM in DEXTROSE/WATER 1 100ML.BAG IVPB SCH ×2 (11:08→21:07)
[2024-09-02 11:38] LABS: Glucose,Whole Blood 136 mg/dL (70-110)
[2024-09-02 11:59] LABS: African American GFR (CKD) >90 (>60 ml/min/1.73 sqM); Anion Gap 8 mmol/L; Blood Urea Nitrogen 12 mg/dL (7-17); Calcium 8.9 mg/dL (8.4-10.2); Carbon Dioxide 23 mmol/L (22-30); Chloride 104 mmol/L (98-107); Glucose 163 mg/dL (74-99); Non-African American GFR(CKD) >90 (>60 ml/min/1.73 sqM); Potassium 4.2 mmol/L (3.5-5.1); Sodium 135 mmol/L (137-145)
--- NOTE | 2024-09-02 13:18 | MR ---
EXAMINATION TYPE: MR brain wo con DATE OF EXAM: 09/02/2024 1:04 PM COMPARISON: None. CLINICAL INDICATION: Female, 63 years old with history of stroke. right sided weakness, Right sided weakness. TECHNIQUE: Multi planar multi sequence imaging of the brain. FINDINGS: The ventricles, basal cisterns and sulci overlying the cerebral convexities are mildly enlarged. There is evidence of mild periventricular white matter ischemic demyelination. Remote deep white matter insults are also noted. No acute edema is seen on diffusion weighted imaging. There is no evidence for midline shift or mass effect. Acute intracranial hemorrhage or extra-axial collection is not evident. Mucous retention cyst left maxillary sinus. IMPRESSION: Age-related atrophic and chronic small vessel ischemic change. No acute intracranial process at this time. [facility], , 09/02/2024 1:16 PM
--- NOTE | 2024-09-02 13:45 | P.PN ---
Subjective Progress Note Date: 09/01/24 09/01/2024: Patient was seen for a follow-up. Patient is feeling better than yesterday. Denies any headache. Had some headache earlier today lasted for couple hours. Patient's family members was also present by the bedside and they agree patient is better today. Patient denies any numbness or tingling in the legs or feet or in the hands. 08/31/2024: Patient initially seen by Dr. Hector Pennington. Please refer to his note for details. Patient is a 63-year-old female with episode of unresponsiveness. Patient's family mentions that she was acting confused on the phone and texting. Patient's brother went in, and witnessed patient falling down. There was no loss of consciousness and she was brought to the hospital. As per EMS flowsheet, her vitals were stable at the scene with blood pressure 125/90. Pulse rate was 70, respiration 18, saturation 99%. EKG showed atrial f ibrillation. CT head/CTA negative. Dr. Pennington felt it was related to significant hypotension. EEG was negative for seizures. He went with normal blood pressure, he was noted to be confused in the hospital and handwriting was off. Patient was seen for a follow-up. Patient's daughter was present by the bedside. The nurse reports that patient has been having very labile blood pressure, going hypotension and hypertension. With this fluctuating blood pressure, patient had stroke code activated. Patient states that she had a headache today that lasted for 2 hours. At present she has no headaches. She did have some nausea. Family mentions that patient is cognitively completely intact. No history of dementia. However since she has been hospitalized, her memory has been "on and off". She remembers most questions. Some of the workup during this hospital visit consisted of: Hospital visit her blood pressure was as low as 80s over 50s with a respiratory rate of 8 INR on presentation is 2.8 Initial serum glucose was 206. Troponin initial presentation is 0.114 and is trending down. I reviewed the rest of the lab workup Urinalysis is cloudy, leukocyte esterase is moderate, urine white blood cells 22. CT cervical spine is reported as no acute trauma. Repeat CT of the head is reported as no acute intracranial hemorrhage or midline shift. No significant change from [address] angiography of the head and neck is reported as no flow-limiting stenosis bilateral carotid bifurcation. There is some fusiform prominence of the anterior communicating artery. [place] otherwise appears within normal limits. Objective - Vital Signs Vital signs: Vital Signs Temp 97.7 F 09/02/24 08:12 Pulse 95 09/02/24 11:07 Resp 18 09/02/24 11:07 BP 174/105 09/02/24 11:07 Pulse Ox 96 09/02/24 11:07 FiO2 Intake & Output 09/01/24 09/02/24 09/02/24 18:59 06:59 18:59 Intake Total 20 20 130 Output Total 1 Balance 20 19 130 Weight 101.5 kg Intake: IV 20 20 10 Invasive Line 1 10 10 Invasive Line 2 10 10 10 Oral 120 Output: Urine/Stool Mix 1 Other: Voiding Method Bedside Commode Bedside Commode Bedside Commode - Exam On examination patient is laying in the bed. I asked her to sit on the side of the bed and patient was able to get up by herself and sit on the side of the bed using the handrail. On cranial examination pupils are equal, round and reactive to light, visual mistry are full on confrontation, and there is no neglect on double simultaneous stimulation. Her face is symmetric. Tongue protrudes to midline. 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 No ataxia for [id number] testing. Sensory to touch is equal with no neglect. No loss of sensation distally in the legs or feet. Deep tendon reflexes are (right/left) biceps trace to 1/trace to 1, br achioradialis 1-1+/1-1+, knee 2+/2+, ankles 0/trace and plantars downgoing bilaterally. - Labs CBC & Chem 7: 09/01/24 07:09 09/02/24 10:43 Labs: Abnormal Lab Results - Last 24 Hours (Table) 09/01/24 09/01/24 09/02/24 Range/Units 16:35 19:59 05:54 PT (10.0-12.5) sec INR (<1.2) Sodium (137-145) mmol/L Glucose (74-99) mg/dL POC Glucose (mg/dL) 120 H 207 H 124 H (70-110) mg/dL 09/02/24 09/02/24 09/02/24 Range/Units 07:32 10:43 11:36 PT 28.0 H (10.0-12.5) sec INR 2.8 H (<1.2) Sodium 135 L (137-145) mmol/L Glucose 163 H (74-99) mg/dL POC Glucose (mg/dL) 136 H (70-110) mg/dL Microbiology - Last 24 Hours (Table) 08/29/24 18:01 Urine Culture - Final Urine,Voided Escherichia coli Strep agalactiae - (group b) Assessment and Plan Assessment: This is a 63-year-old woman who presents emergency department because of a fall. She does not recall what happened but denies any loss of consciousness. In the hospital she had another episode that she was unresponsive but her blood pressure during this hospital visit was as low as 80s over 40s. She had 2 CT of the head which are unremarkable and CT angiography of the head and neck which is also negative for any large vessel occlusion or significant stenosis. Episode of unresponsiveness: Probable due to her significant hypotensive episode. Notable right sided weakness patient complained of but was not exactly sure: If it truly due to TIA No clinical evidence of Guillain-Piña syndrome. Patient has preserved reflexes. Significant hypotensive with bradycardia. History of atrial fibrillation on Coumadin Chronic diabetes mellitus Underlying history of hypertension Hypercholesteremia Plan: CT lumbar spine revealed age-indeterminate central superior endplate compression deformity versus Schmorl's node at L1. Approximately 20% height loss centrally. No retropulsion. Correlate with point tenderness versus MRI. Mild multilevel degenerative disc disease. MRI of lumbar spine initiated by Dr. Pennington. EEG was abnormal due to background slowing, suggestive of mild encephalopathy. No epileptiform activity was seen. Hemoglobin A1c 6.3 Await MRI of the brain to rule out any underlying stroke, initiated by Dr. Pennington Consulted PT and OT Her mentation seems to be normal. No indication for lumbar puncture at this time. Commend EMG with nerve conduction study as an outpatient of the [facility] to rule out any neuropathy No indication for lumbar puncture, as there is no evidence of Guillain-Piña syndrome. TSH 0.202, B12 450, folate 18.7. We will defer to IM to address abnormal thyroid functions. Please avoid any further hypotensive episode PT and OT. Will defer the rest of the medical management to primary and other specialist Discussed with family members as well.
--- NOTE | 2024-09-02 13:47 | P.PN ---
Subjective HISTORY OF PRESENT ILLNESS: This is this is a 63-year-old female patient of Dr. TERA Ying with past medical history of hypertension, chronic atrial fibrillation, dyslipidemia, diabetes, obesity. We have been asked to evaluate the patient for atrial fibrillation. Patient presented to the hospital yesterday. According to the patient's son. She had a fall and hit her head on the stove. 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 Earlier in the week on Monday, the son talked to her and she was having nausea and vomiting and they were going to wait 1 more day before they took her to the doctor. She was also complaining of feeling cold. She had a recent muscle tear in her lower leg in June and had not been that active. He also states that there was a medication she was not able to obtain over the weekend but apparently picked up on Monday. Patient's mental status seemed to be off a little bit yesterday but the son states that she seems to be much improved today. Just prior to our arrival, patient became unresponsive according to her nurse. She had been awake and alert 15 minutes prior to this episode. Her systolic blood pressure dropped down to 70. She was given fluid bolus and her systolic pressure was then 89. Blood sugar was 152. There was concern that she was staring to the left side. When she had the unresponsive episode, her son thought that she was just sleepi ng. Since arrival, patient has been alert and oriented except that she cannot recall the year. This continues to be the case. Patient went for for stat CT of the brain. Subsequently the systolic blood pressure was 70/36 and orders were given for Levophed and patient was to be transferred to the CCU. Patient apparently has had no complaints of chest pain and no history of CABG or stent to the heart. Son states her equilibrium has been off for about a year. Patient has been started on Cardizem drip which was discontinued. We have also discontinued clonidine and hydralazine. -EKG: Atrial fibrillation with ventricular rate of 153 bpm. -Chest x-ray: No acute process. -Pelvic x-ray: No acute fracture. -CT facial bones: No facial bone trauma. -CT brain and cervical spine: No acute bleed or mass effect. No acute trauma to the cervical spine. -Laboratory studies: WBC 11 point, INR 2.8. Sodium 137, potassium 3.2, BUN 31 creatinine 0.89. Troponins 0.114, 0.098, 0.069. Cepheid viral panel negative. -Home cardiac medications: Atenolol 50 mg daily, clonidine 0.3 mg daily, hydralazine 50 mg twice daily, hydrochlorothiazide 25 mg daily, losartan 100 mg daily, simvastatin 40 mg at bedtime, warfarin 5 mg daily. -Lexiscan Cardiolite stress test performed in the office in 2013 was normal myocardial perfusion imaging with normal ejection fraction. -Echocardiogram performed in the office in 2013 revealed normal LV size and function, moderate concentric hypertrophy. Moderate mitral regurgitation, mild to moderate tricuspid regurgitation. 08/31 Patient seen and examined. Patient's home blood pressure medications were held and blood pressure increased and patient back to her normal self. Currently alert and oriented x 3. She remains nauseous. She denies any chest pain or pressure. Denies any significant abdominal pain. Echocardiogram performed with ejection fraction 55%. Blood pressure remains elevated mainly systolics 160s to 180s with diastolics in the 90s to 110 range. CTA performed which showed no carotid stenosis and relatively normal [place]. EEG performed with background slowing. 09/01 Patient seen and examined on the cardiac stepdown unit. Patient has been transferred out of the intensive care unit. Patient has right periorbital edema. She does not know why this occurred. She denies any fall or injury. Blood pressure 152/89, heart rate 89, pulse ox 96% on room air. Repeat blood work reveals INR 3.1. Potassium 4.3, BUN 19 and creatinine 0.65. Losartan was resumed yesterday. Patient's mentation is back to baseline. MRI of the brain and lumbar spine are pending. 09/02/2024 Patient examined this morning at the bedside. Patient currently denies chest pain or pressure. Denies shortness of breath. Vital signs are stable. Telemetry reveals atrial fibrillation with controlled ventricular rate. PHYSICAL EXAM: VITAL SIGNS: Reviewed. GENERAL: Well-developed in no acute distress. NECK: Supple. No JVD or thyromegaly LUNGS: Respirations even and unlabored. Lungs essentially clear to auscultation bilaterally. HEART: Irregular rate and rhythm. S1 and S2 heard. EXTREMITIES: Normal range of motion. No clubbing or cyanosis. Peripheral pulses intact. No lower extremity edema ASSESSMENT: Persistent atrial fibrillation with RVR, currently rate controlled Elevated troponins, likely type II SC secondary to oxygen supply/demand mismatch secondary to hypoperfusion, no evidence of acute coronary syndrome Unresponsive episode possible CVA, however more likely related to hypoperfusion Fall at home with head injury Hypertension Dyslipidemia Diabetes mellitus type 2 Obesity with BMI of 30 Persistent nausea Prolonged QT PLAN: Discontinue atenolol Begin carvedilol 12.5 mg twice a day starting tomorrow morning. Give a dose of 6.25 mg this evening Give 2 g magnesium IV now and repeat again at 2100 Recheck magnesium in a.m. Discontinue any QT prolonging medications including Zofran and Reglan Continue additional cardiac medications including losartan and atorvastatin Continue anticoagulation with Coumadin. Monitor INR. INR 2.8 today. 7-day Holter at the time of discharge Further recommendations pending patient course Patient to follow-up postdischarge with Dr. Ying Nurse practitioner note has been reviewed by physician. Signing provider agrees with the documented findings, assessment, and plan of care documented by CASE LINER as a scribe. Objective - Vital Signs Vital signs: Vital Signs Temp 97.7 F 09/02/24 08:12 Pulse 95 09/02/24 11:07 Resp 18 09/02/24 11:07 BP 174/105 09/02/24 11:07 Pulse Ox 96 09/02/24 11:07 FiO2 Intake & Output 09/01/24 09/02/24 09/02/24 18:59 06:59 18:59 Intake Total 20 20 130 Output Total 1 Balance 20 19 130 Weight 101.5 kg Intake: IV 20 20 10 Invasive Line 1 10 10 Invasive Line 2 10 10 10 Oral 120 Output: Urine/Stool Mix 1 Other: Voiding Method Bedside Commode Bedside Commode Bedside Commode - Labs CBC & Chem 7: 09/01/24 07:09 09/02/24 10:43 Labs: Abnormal Lab Results - Last 24 Hours (Table) 09/01/24 09/01/24 09/02/24 Range/Units 16:35 19:59 05:54 PT (10.0-12.5) sec INR (<1.2) Sodium (137-145) mmol/L Glucose (74-99) mg/dL POC Glucose (mg/dL) 120 H 207 H 124 H (70-110) mg/dL 09/02/24 09/02/24 09/02/24 Range/Units 07:32 10:43 11:36 PT 28.0 H (10.0-12.5) sec INR 2.8 H (<1.2) Sodium 135 L (137-145) mmol/L Glucose 163 H (74-99) mg/dL POC Glucose (mg/dL) 136 H (70-110) mg/dL Microbiology - Last 24 Hours (Table) 08/29/24 18:01 Urine Culture - Final Urine,Voided Escherichia coli Strep agalactiae - (group b)
--- NOTE | 2024-09-02 14:30 | MR ---
EXAMINATION TYPE: MR lumbar spine wo/w con DATE OF EXAM: 09/02/2024 1:31 PM COMPARISON: CT dated 08/30/2024 CLINICAL INDICATION: Female, 63 years old with history of falls with hyporeflexia in lowers, Falls wi th hyporeflexia in lower extremities. TECHNIQUE: Multiplanar, MultiSpin echo imaging of the lumbar spine was performed. CONTRAST: The patient was injected with 10 mL intravenous Gadobutrol gadolinium contrast. FINDINGS: L1-L2: Normal disc appearance without desiccation. No herniation, protrusion or disc bulging. No ca nal stenosis is present. Foramina are patent bilaterally. L2-L3: Normal disc appearance without desiccation. No herniation, protrusion or disc bulging. No ca nal stenosis is present. Foramina are patent bilaterally. L3-L4: Moderate disc desiccation noted. No herniation, protrusion or disc bulging. No canal stenosis is present. Foramina are patent bilaterally. L4-L5: Moderate disc desiccation noted. No herniation, protrusion or disc bulging. No canal stenosis is present. Foramina are patent bilaterally. L5-S1: Moderate disc desiccation noted. No herniation, protrusion or disc bulging. No canal stenosis is present. Foramina are patent bilaterally. Mild superior endplate loss of height involving L1. Loss of height estimated at 20%. Fracture could b e late subacute in nature as there is no significant increased signal on STIR imaging or pathologic e nhancement.. There is minimal loss of height superior endplate of L2 and inferior endplate of L3 with enhancement seen and mild increased signal noted on the STIR data set suggesting acute traumatic inj ury. No evidence for mass enhancement. No paraspinal masses are identified. Conus medullaris has a n ormal appearance. IMPRESSION: 1. Mild superior endplate loss of height involving L1. Loss of height estimated at 20%. Fracture coul d be late subacute in nature as there is no significant increased signal on STIR imaging or pathologi c enhancement.. There is minimal loss of height superior endplate of L2 and inferior endplate of L3 w ith enhancement seen and mild increased signal noted on the STIR data set suggesting acute traumatic injury. No evidence for mass enhancement. [facility], , 09/02/2024 2:28 PM
[2024-09-02 16:18] LABS: Glucose,Whole Blood 189 mg/dL (70-110)
[2024-09-02] MEDS: carvediloL 6.25 MG TAB PO SCH (16:32)
[2024-09-02] MEDS: WARFARIN 2 MG TAB PO ONE (17:35)
[2024-09-02] MEDS: hydrALAZINE HCL 20 MG/ML 1 ML VIAL IVP STA (17:35)
[2024-09-02 20:00] LABS: Glucose,Whole Blood 154 mg/dL (70-110)
--- NOTE | 2024-09-02 20:19 | P.PN ---
Subjective Progress Note Date: 09/02/24 Patient evaluated today in follow up on the medical floor. Currently pending Brain MRI. Continues to report significant lower back pain and difficulty with arising to standing position for seated. Once up she is able to ambulate short distances. She is also pending lumbar MRI. Patient remains on warfarin and INR today is 2.8. Remains in atrial fibrillation with rate controlled currently; remains in atrial fibrillation. Patient remains on IV ceftriaxone. Review of Systems Constitutional: Denied any fatigue denied any fever. Cardio vascular: denied any chest pain, palpitations Gastrointestinal: denied any nausea, vomiting, diarrhea Pulmonary: Denied any shortness of breath cough Neurologic denied any new focal deficits All inpatient medications were reviewed and appropriate changes in these med ications as dictated in the interval history and assessment and plan. PHYSICAL EXAMINATION: GENERAL: The patient is alert and oriented x3, not in any acute distress. Well developed, well nourished. HEENT: Pupils are round and equally reacting to light. EOMI. No scleral icterus. No conjunctival pallor. Normocephalic, atraumatic. No pharyngeal erythema. No thyromegaly. CARDIOVASCULAR: S1 and S2 present. No murmurs, rubs, or gallops. PULMONARY: Chest is clear to auscultation, no wheezing or crackles. ABDOMEN: Soft, nontender, nondistended, normoactive bowel sounds. No palpable organomegaly. MUSCULOSKELETAL: No joint swelling or deformity. EXTREMITIES: No cyanosis, clubbing, or pedal edema. NEUROLOGICAL: Gross neurological examination did not reveal any focal deficits. SKIN: No rashes. Assessment and plan 1. Atrial fibrillation with RVR -Patient does have history of chronic atrial fibrillation and is anticoagulated on Coumadin -Patient placed on IV Cardizem infusion in ED with improved rate control -Cardizem was discontinued; currently on carvedilol with dosing being adjusted 2. Hypotension; likely medication effect -Cardizem infusion has been discontinued; hold antihypertensive therapy -Patient received IV fluid bolus in ED; initially in ICU requiring levophed -Intensive care service on board -Patient has been moved out of the ICU and blood pressure significantly improved 3. Altered mental status CT of the brain and CT angiogram were negative -Patient has been admitted to complete stroke workup and further neurology evaluation -Pending brain MRI today -Continues on statin therapy and oral anticoagulation 4. Fall with head injury -Patient had CT of the brain completed in ED which was unremarkable 5. Hypertension; patient was found to be hypotensive in ED; antihypertensive medications have been resumed. 6. Hyperlipidemia; Lipitor 20 mg p.o. nightly 7. Diabetes mellitus type II; patient is currently on glipizide 5 mg twice daily, metformin 1000 mg twice daily; monitor Accu-Cheks before every meal and at bedtime with insulin sliding scale 8. Lower back pain pending brain MRI and may need spinal surgery consultation -Consult PT/OT DVT prophylaxis; SCDs/Coumadin CODE STATUS; full code The impression and plan of care has been dictated by Joyce Esparza Nurse Practitioner as directed. Dr. Shorty MD I have performed a history and physical examination and medical decision making of this patient, discussed the same with the dictator, and agree with the dictators assessment and plan as written, documented as a scribe. Based on total visit time, I have performed more than 50% of this visit. Objective - Vital Signs Vital signs: Vital Signs Temp 97.8 F 09/02/24 15:46 Pulse 98 09/02/24 15:46 Resp 18 09/02/24 15:46 BP 172/103 09/02/24 15:46 Pulse Ox 95 09/02/24 15:46 FiO2 Intake & Output 09/02/24 09/02/24 09/03/24 06:59 18:59 06:59 Intake Total 20 270 Output Total 1 Balance 19 270 Weight 101.5 kg Intake: IV 20 30 Invasive Line 1 10 Invasive Line 2 10 30 Oral 240 Output: Urine/Stool Mix 1 Other: Voiding Method Bedside Commode Bedside Commode - Labs CBC & Chem 7: 09/01/24 07:09 09/02/24 10:43 Labs: Abnormal Lab Results - Last 24 Hours (Table) 09/01/24 09/02/24 09/02/24 Range/Units 19:59 05:54 07:32 PT 28.0 H (10.0-12.5) sec INR 2.8 H (<1.2) Sodium (137-145) mmol/L Glucose (74-99) mg/dL POC Glucose (mg/dL) 207 H 124 H (70-110) mg/dL 09/02/24 09/02/24 09/02/24 Range/Units 10:43 11:36 16:17 PT (10.0-12.5) sec INR (<1.2) Sodium 135 L (137-145) mmol/L Glucose 163 H (74-99) mg/dL POC Glucose (mg/dL) 136 H 189 H (70-110) mg/dL 09/02/24 Range/Units 19:58 PT (10.0-12.5) sec INR (<1.2) Sodium (137-145) mmol/L Glucose (74-99) mg/dL POC Glucose (mg/dL) 154 H (70-110) mg/dL Assessment and Plan Time with Patient: Less than 30
[2024-09-03 06:01] LABS: Glucose,Whole Blood 122 mg/dL (70-110)
[2024-09-03] MEDS: carvediloL 12.5 MG TAB PO SCH (06:23)
[2024-09-03 08:04] VITALS: RESP 16
--- NOTE | 2024-09-03 08:04 | P.CNOR ---
History of Present Illness - HPI Consult date: 09/03/24 Requesting physician: Joyce Esparza Consult reason: other (Subacute L1 VCF, Low back pain-post fall) History of present illness: History of Presenting Illness Patient is a pleasant 63-year-old female who presented to the ER via EMS on 08/29/24 after a fall at home. Patient reports that she tripped and fell in her kitchen hitting her head on the stove. She states that she was unsure if she had LOC. Patient is on Coumadin due to A-fib. In the ED patient was found to be in atrial fibrillation with RVR and has been admitted to the cardiac care unit. It is documented that patient has had altered mental status and difficulty providing history. During the assessment patient seems alert and oriented x 4. Our services have been consulted due to a subacute L1 vertebral compression fracture and increased low back pain post fall. Patient does report that she lives at home with her and is normally independent. 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 Patient does have a past medical history of hypertension, chronic atrial fibrillation, dyslipidemia, diabetes, and obesity. Patient denies any orthopedic history. Patient was seen and examined this morning. Patient is resting comfortably in bed. She does report that her pain is managed on current regimen. Patient is able to reposition herself in bed with mild discomfort, although she is demonstrating generalized weakness. Patient denies any radiculopathy or numbness or tingling into the bilateral lower extremities. There is point tenderness of the midline lumbar spine. Discussed with patient the results of her CT scan and MRI of the lumbar spine. CT scan of the lumbar spine taken on 08/30/2024 demonstrates an age-indeterminate central superior endplate compression deformity versus Schmorl's node at L1. Approximately 20% height loss centrally. No retropulsion. There is mild multilevel degenerative disc disease. MRI of the lumbar spine taken 09/02/2024 demonstrates mild superior endplate loss of height involving L1. Fracture could be late subacute in nature as there is no significant increased signal on STIR imaging or pathological enhancement. There is minimal loss of height superior endplate of L2 and inferior endplate of L3 with enhancement seen and mild increased signal noted on the STIR data set suggesting acute traumatic injury. No evidence for mass enhancement. Review of Systems Pertinent positives and negatives as discussed in HPI, a complete review of systems was performed and all other systems are negative. Physical Examination General: The patient is awake and alert, in no acute distress Skin: Skin is warm and dry with no obvious rashes or lesions. Neck: The neck is supple, there is no tenderness and ROM intact. Respiratory: Respirations are non-labored. Gastrointestinal: Soft, non-distended, non-tender abdomen. Back: There is tenderness to palpation in the midline lumbar region. There is no obvious deformity. Musculoskeletal: ROM limited secondary to pain and stiffness. Right: shoulder abduction 4/5, elbow flexors 4/5, wrist dorsiflexors 4/5. finger abductor 4/5, design verification engineer 4/5, hip flexor 3-/5, knee flexor 3-/5, ankle dorsiflexor 4/5, ankle plantarflexion 4/5 and extensor hallucis 4/5. Left: shoulder abduction 4/5, elbow flexors 4/5, wrist dorsiflexors 4/5. finger abductor 4/5, design verification engineer 4/5, hip flexor 3-/5, knee flexor 3-/5, ankle dorsiflexor 4/5, ankle plantarflexion 4/5 and extensor hallucis 4/5. Neurological: CN 2-12 intact. There are no obvious motor or sensory deficits. Movement and coordination equal and intact. Sensory exam to light touch intact C5-T1 and intact from L2-S1. Reflexes 2/4 in bilateral upper and lower extre mities. Negative Hoffmans, babinski, and clonus signs. Psychiatric: Cooperative, appropriate mood & affect, normal judgment. Assessment Recent fall from standing Subacute L1 vertebral compression fracture Acute L2 and L3 compression deformity Mechanical low back pain Generalized weakness Plan At this time we do not recommend any emergent/urgent orthopedic surgical intervention. Continue with conservative treatment measures. Prescription for LSO brace has been placed in chart. Recommend daily PT/OT. Patient may follow- up with Dr. Lantigua's office for further evaluation as needed. Orthopedics is signing off at this time. Please do not hesitate to contact us for any further questions. 2. Appreciate medical management 3. Pain management - Continue with current regimen, Utilize ice therapy 20min every hour as needed. 4. PT/OT - weightbearing as tolerated with a walker as needed. 7. Appreciate consult. I reviewed and discussed this case with my attending Dr. Lantigua, whom has reviewed this chart and films and is in agreement with assessment and plan of care as outlined above. I have personally seen and examined the patient, performed the documentation and the assessment and plan as written. Number of minutes spent on the visit: 30m. Past Medical History Past Medical History: Atrial Fibrillation Additional Past Medical History / Comment(s): afib:coumadin, increase in falls History of Any Multi-Drug Resistant Organisms: Unobtainable Past Surgical History: Unable to Obtain Additional Past Surgical History / Comment(s): fatty tumor removed on arm Past Anesthesia/Blood Transfusion Reactions: No Reported Reaction Past Psychological History: Unable to Obtain Smoking Status: Unknown if ever smoked Past Alcohol Use History: Unable to Obtain Past Drug Use History: Unable to Obtain - Past Family History Father Family Medical History: AFIB Medications and Allergies Home Medications Medication Instructions Recorded Confirmed Type Losartan Potassium 100 mg PO DAILY 08/29/24 08/29/24 History Semaglutide [Ozempic] 2 mg SQ JIMENEZ 08/29/24 08/29/24 History Simvastatin 40 mg PO HS 08/29/24 08/29/24 History Warfarin [Coumadin] 5 mg PO DAILY 08/29/24 08/29/24 History atenoloL [Tenormin] 50 mg PO DAILY 08/29/24 08/29/24 History cloNIDine HCL [Catapres] 0.3 mg PO DAILY 08/29/24 08/29/24 History glyBURIDE [Diabeta] 5 mg PO BID 08/29/24 08/29/24 History hydrALAZINE HCL [Apresoline] 50 mg PO BID-W/MEALS 08/29/24 08/29/24 History hydroCHLOROthiazide 25 mg PO DAILY 08/29/24 08/29/24 History metFORMIN HCL [Glucophage] 1,000 mg PO BID-W/MEALS 08/29/24 08/29/24 History traZODone HCL [Trazodone HCl] 300 mg PO HS 08/29/24 08/29/24 History Allergies Allergy/AdvReac Type Severity Reaction Status Date / Time codeine Allergy Itching Verified 08/29/24 17:51 naproxen Allergy Unknown Verified 08/29/24 17:51 Results - Labs Labs: Abnormal Lab Results - Last 24 Hours (Table) 09/02/24 09/02/24 09/02/24 Range/Units 07:32 10:43 11:36 PT 28.0 H (10.0-12.5) sec INR 2.8 H (<1.2) Sodium 135 L (137-145) mmol/L Glucose 163 H (74-99) mg/dL POC Glucose (mg/dL) 136 H (70-110) mg/dL 09/02/24 09/02/24 09/03/24 Range/Units 16:17 19:58 05:59 PT (10.0-12.5) sec INR (<1.2) Sodium (137-145) mmol/L Glucose (74-99) mg/dL POC Glucose (mg/dL) 189 H 154 H 122 H (70-110) mg/dL H & H 08/29/24 08/30/24 08/31/24 Range/Units 14:44 08:34 05:14 Hgb 17.4 H 13.5 D 11.0 L (11.4-16.0) gm/dL Hct 54.7 H 45.3 37.2 (34.0-46.0) % 09/01/24 Range/Units 07:09 Hgb 11.8 (11.4-16.0) gm/dL Hct 39.4 (34.0-46.0) % Coagulation 08/29/24 08/30/24 08/31/24 Range/Units 14:44 13:16 05:14 INR 2.8 H 2.4 H 2.2 H (<1.2) 09/01/24 09/02/24 Range/Units 07:09 07:32 INR 3.1 H 2.8 H (<1.2) Result Diagrams: 09/01/24 07:09 09/02/24 10:43
[2024-09-03 09:22] LABS: INR 2.1 (<1.2); Prothrombin Time 21.2 sec (10.0-12.5)
[2024-09-03 09:26] LABS: African American GFR (CKD) >90 (>60 ml/min/1.73 sqM); Anion Gap 6 mmol/L; Blood Urea Nitrogen 9 mg/dL (7-17); Calcium 7.9 mg/dL (8.4-10.2); Carbon Dioxide 24 mmol/L (22-30); Chloride 103 mmol/L (98-107); Glucose 141 mg/dL (74-99); Non-African American GFR(CKD) >90 (>60 ml/min/1.73 sqM); Potassium 3.8 mmol/L (3.5-5.1); Sodium 133 mmol/L (137-145)
[2024-09-03 11:56] LABS: Glucose,Whole Blood 128 mg/dL (70-110)
--- NOTE | 2024-09-03 11:57 | P.PN ---
Subjective Progress Note Date: 09/02/24 09/02/2024: Patient was seen for follow-up. Patient's family members were also present. Patient and her family feels that she is doing better than yesterday. She does admit to having some back pain. No new neurological symptoms. 09/01/2024: Patient was seen for a follow-up. Patient is feeling better than yesterday. Denies any headache. Had some headache earlier today lasted for couple hours. Patient's family members was also present by the bedside and they agree patient is better today. Patient denies any numbness or tingling in the legs or feet or in the hands. 08/31/2024: Patient initially seen by Dr. Hector Pennington. Please refer to his note f or details. Patient is a 63-year-old female with episode of unresponsiveness. Patient's family mentions that she was acting confused on the phone and texting. Patient's brother went in, and witnessed patient falling down. There was no loss of consciousness and she was brought to the hospital. As per EMS flowsheet, her vitals were stable at the scene with blood pressure 125/90. Pulse rate was 70, respiration 18, saturation 99%. EKG showed atrial fibrillation. CT head/CTA negative. Dr. Pennington felt it was related to significant hypotension. EEG was negative for seizures. He went with normal blood pressure, he was noted to be confused in the hospital and handwriting was off. Patient was seen for a follow-up. Patient's daughter was present by the bedside. The nurse reports that patient has been having very labile blood pressure, going hypotension and hypertension. With this fluctuating blood pressure, patient had stroke code activated. Patient states that she had a headache today that lasted for 2 hours. At present she has no headaches. She did have some nausea. Family mentions that patient is cognitively completely intact. No history of dementia. However since she has been hospitalized, her memory has been "on and off". She remembers most questions. Some of the workup during this hospital visit consisted of: Hospital visit her blood pressure was as low as 80s over 50s with a respiratory rate of 8 INR on presentation is 2.8 Initial serum glucose was 206. Troponin initial presentation is 0.114 and is trending down. I reviewed the rest of the lab workup Urinalysis is cloudy, leukocyte esterase is moderate, urine white blood cells 22. CT cervical spine is reported as no acute trauma. Repeat CT of the head is reported as no acute intracranial hemorrhage or midline shift. No significant change from [address] angiography of the head and neck is reported as no flow-limiting stenosis bilateral carotid bifurcation. There is some fusiform prominence of the anterior communicating artery. [place] otherwise appears within normal limits. Objective - Vital Signs Vital signs: Vital Signs Temp 97.8 F 09/02/24 15:46 Pulse 98 09/02/24 15:46 Resp 18 09/02/24 15:46 BP 172/103 09/02/24 15:46 Pulse Ox 95 09/02/24 15:46 FiO2 Intake & Output 09/01/24 09/02/24 09/02/24 18:59 06:59 18:59 Intake Total 20 20 150 Output Total 1 Balance 20 19 150 Weight 101.5 kg Intake: IV 20 20 30 Invasive Line 1 10 10 Invasive Line 2 10 10 30 Oral 120 Output: Urine/Stool Mix 1 Other: Voiding Method Bedside Commode Bedside Commode Bedside Commode - Exam On examination patient is laying in the bed. I asked her to sit on the side of the bed and patient was able to get up by herself and sit on the side of the bed using the handrail. On cranial examination pupils are equal, round and reactive to light, visual mistry are full on confrontation, and there is no neglect on double simultaneous stimulation. Her face is symmetric. Tongue protrudes to midline. On muscle strength testing there is no pronator drift and the strength is (right/left) deltoid 5-/5-(with some giveaway due to soreness), biceps 5/5, triceps 5/5, investor relations director 5/5, hip flexion 3+/3+, adduction 5-/5-, abduction 5-/5-, knee extension 5/5, ankle dorsiflexion 5/5, inversion 5/5, eversion 5/5, toe extension 5/5. No ataxia for [id number] testing. Sensory to touch is equal with no neglect. No loss of sensation distally in the legs or feet. Deep tendon reflexes are (right/left) biceps trace to 1/trace to 1, brachioradialis 1-1+/1-1+, knee 2+/2+, ankles 0/trace and plantars downgoing bilaterally. - Labs CBC & Chem 7: 09/01/24 07:09 09/03/24 07:56 Labs: Abnormal Lab Results - Last 24 Hours (Table) 09/01/24 09/01/24 09/02/24 Range/Units 16:35 19:59 05:54 PT (10.0-12.5) sec INR (<1.2) Sodium (137-145) mmol/L Glucose (74-99) mg/dL POC Glucose (mg/dL) 120 H 207 H 124 H (70-110) mg/dL 09/02/24 09/02/24 09/02/24 Range/Units 07:32 10:43 11:36 PT 28.0 H (10.0-12.5) sec INR 2.8 H (<1.2) Sodium 135 L (137-145) mmol/L Glucose 163 H (74-99) mg/dL POC Glucose (mg/dL) 136 H (70-110) mg/dL 09/02/24 Range/Units 16:17 PT (10.0-12.5) sec INR (<1.2) Sodium (137-145) mmol/L Glucose (74-99) mg/dL POC Glucose (mg/dL) 189 H (70-110) mg/dL Microbiology - Last 24 Hours (Table) 08/29/24 18:01 Urine Culture - Final Urine,Voided Escherichia coli Strep agalactiae - (group b) Assessment and Plan Assessment: This is a 63-year-old woman who presents emergency department because of a fall. She does not recall what happened but denies any loss of consciousness. In the hospital she had another episode that she was unresponsive but her blood pressure during this hospital visit was as low as 80s over 40s. She had 2 CT of the head which are unremarkable and CT angiography of the head and neck which is also negative for any large vessel occlusion or significant stenosis. Episode of unresponsiveness: Probable due to her significant hypotensive episode. Notable right sided weakness patient complained of but was not exactly sure: If it truly due to TIA Compression fracture L1 vertebra No clinical evidence of Guillain-Piña syndrome. Patient has preserved reflexes. Significant hypotensive with bradycardia. History of atrial fibrillation on Coumadin Chronic diabetes mellitus Underlying history of hypertension Hypercholesteremia Plan: CT lumbar spine revealed age-indeterminate central superior endplate compression deformity versus Schmorl's node at L1. Approximately 20% height loss centrally. No retropulsion. Correlate with point tenderness versus MRI. Mild multilevel degenerative disc disease. MRI of lumbar spine revealed mild superior endplate loss of height involving L1. Loss of height estimated at 20%. Fracture could be late subacute in nature as there is no significant increased signal on the STIR imaging or pathologic en hancement. There is minimal loss of height superior endplate of L2 and inferior endplate of L3 with enhancement seen and mild increased signal noted on the STIR data sets suggesting acute traumatic injury. No evidence for mass enhancement. Await orthopedic spine consultation. EEG was abnormal due to background slowing, suggestive of mild encephalopathy. No epileptiform activity was seen. Hemoglobin A1c 6.3 MRI brain revealed age-related atrophic and chronic small vessel ischemic change. No acute intracranial process at this time. I personally reviewed MRI agree with the findings. Consulted PT and OT Her mentation seems to be normal. No indication for lumbar puncture at this time. Recommend EMG with nerve conduction study as an outpatient of the lowers to rule out any neuropathy No indication for lumbar puncture, as there is no evidence of Guillain-Piña s yndrome. TSH 0.202, B12 450, folate 18.7. We will defer to IM to address abnormal thyroid functions. Please avoid any further hypotensive episode PT and OT. Will defer the rest of the medical management to primary and other specialist Discussed with family members as well. Neurologically, otherwise clear for discharge.
[2024-09-03] MEDS: carvediloL 12.5 MG TAB PO STA (12:12)
--- NOTE | 2024-09-03 15:05 | P.PN ---
Subjective HISTORY OF PRESENT ILLNESS: This is this is a 63-year-old female patient of Dr. TERA Ying with past medical history of hypertension, chronic atrial fibrillation, dyslipidemia, diabetes, obesity. We have been asked to evaluate the patient for atrial fibrillation. Patient presented to the hospital yesterday. According to the patient's son. She had a fall and hit her head on the stove. 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 Earlier in the week on Monday, the son talked to her and she was having nausea and vomiting and they were going to wait 1 more day before they took her to the doctor. She was also complaining of feeling cold. She had a recent muscle tear in her lower leg in June and had not been that active. He also states that there was a medication she was not able to obtain over the weekend but apparently picked up on Monday. Patient's mental status seemed to be off a little bit yesterday but the son states that she seems to be much improved today. Just prior to our arrival, patient became unresponsive according to her nurse. She had been awake and alert 15 minutes prior to this episode. Her systolic blood pressure dropped down to 70. She was given fluid bolus and her systolic pressure was then 89. Blood sugar was 152. There was concern that she was staring to the left side. When she had the unresponsive episode, her son thought that she was just sleepi ng. Since arrival, patient has been alert and oriented except that she cannot recall the year. This continues to be the case. Patient went for for stat CT of the brain. Subsequently the systolic blood pressure was 70/36 and orders were given for Levophed and patient was to be transferred to the CCU. Patient apparently has had no complaints of chest pain and no history of CABG or stent to the heart. Son states her equilibrium has been off for about a year. Patient has been started on Cardizem drip which was discontinued. We have also discontinued clonidine and hydralazine. -EKG: Atrial fibrillation with ventricular rate of 153 bpm. -Chest x-ray: No acute process. -Pelvic x-ray: No acute fracture. -CT facial bones: No facial bone trauma. -CT brain and cervical spine: No acute bleed or mass effect. No acute trauma to the cervical spine. -Laboratory studies: WBC 11 point, INR 2.8. Sodium 137, potassium 3.2, BUN 31 creatinine 0.89. Troponins 0.114, 0.098, 0.069. Cepheid viral panel negative. -Home cardiac medications: Atenolol 50 mg daily, clonidine 0.3 mg daily, hydralazine 50 mg twice daily, hydrochlorothiazide 25 mg daily, losartan 100 mg daily, simvastatin 40 mg at bedtime, warfarin 5 mg daily. -Lexiscan Cardiolite stress test performed in the office in 2013 was normal myocardial perfusion imaging with normal ejection fraction. -Echocardiogram performed in the office in 2013 revealed normal LV size and function, moderate concentric hypertrophy. Moderate mitral regurgitation, mild to moderate tricuspid regurgitation. 08/31 Patient seen and examined. Patient's home blood pressure medications were held and blood pressure increased and patient back to her normal self. Currently alert and oriented x 3. She remains nauseous. She denies any chest pain or pressure. Denies any significant abdominal pain. Echocardiogram performed with ejection fraction 55%. Blood pressure remains elevated mainly systolics 160s to 180s with diastolics in the 90s to 110 range. CTA performed which showed no carotid stenosis and relatively normal [place]. EEG performed with background slowing. 09/01 Patient seen and examined on the cardiac stepdown unit. Patient has been transferred out of the intensive care unit. Patient has right periorbital edema. She does not know why this occurred. She denies any fall or injury. Blood pressure 152/89, heart rate 89, pulse ox 96% on room air. Repeat blood work reveals INR 3.1. Potassium 4.3, BUN 19 and creatinine 0.65. Losartan was resumed yesterday. Patient's mentation is back to baseline. MRI of the brain and lumbar spine are pending. 09/02/2024 Patient examined this morning at the bedside. Patient currently denies chest pain or pressure. Denies shortness of breath. Vital signs are stable. Telemetry reveals atrial fibrillation with controlled ventricular rate. 09/03/2024 Patient examined this morning at the bedside. Patient currently denies chest pain or pressure. She denies shortness of breath. Blood pressures are elevated today with a systolic in the 160s. Heart rate is also elevated in the 90slow 100s. Repeat EKG reveals QTc 425. NR today 2.1. PHYSICAL EXAM: VITAL SIGNS: Reviewed. GENERAL: Well-developed in no acute distress. NECK: Supple. No JVD or thyromegaly LUNGS: Respirations even and unlabored. Lungs essentially clear to auscultation bilaterally. HEART: Irregular rate and rhythm. S1 and S2 heard. EXTREMITIES: Normal range of motion. No clubbing or cyanosis. Peripheral pulses intact. No lower extremity edema ASSESSMENT: Permanent atrial fibrillation with RVR, currently rate controlled Elevated troponins, likely type II NE secondary to oxygen supply/demand mismatch secondary to hypoperfusion, no evidence of acute coronary syndrome Unresponsive episode possible CVA, however more likely related to hypoperfusion Fall at home with head injury Hypertension Dyslipidemia Diabetes mellitus type 2 Obesity with BMI of 30 Persistent nausea Prolonged QT PLAN: Increase carvedilol to 25 mg twice a day Continue anticoagulation with Coumadin. Monitor INR. Continue additional cardiac medications including atorvastatin and losartan 7-day Holter at the time of discharge Patient will be discharged home today from a cardiac standpoint Patient to follow-up postdischarge with Dr. Ying We will sign off. Please reconsult if needed. Nurse practitioner note has been reviewed by physician. Signing provider agrees with the documented findings, assessment, and plan of care documented by GROOVER OPERATOR as a scribe. Objective - Vital Signs Vital signs: Vital Signs Temp 97.8 F 09/03/24 08:02 Pulse 92 09/03/24 13:48 Resp 16 09/03/24 13:48 BP 183/94 09/03/24 11:49 Pulse Ox 96 09/03/24 11:49 FiO2 Intake & Output 09/02/24 09/03/24 09/03/24 18:59 06:59 18:59 Intake Total 270 Balance 270 Weight 85.8 kg Intake: IV 30 Invasive Line 2 30 Oral 240 Other: Voiding Method Bedside Commode Bedside Commode Toilet # Voids 2 - Labs CBC & Chem 7: 09/01/24 07:09 09/03/24 07:56 Labs: Abnormal Lab Results - Last 24 Hours (Table) 09/02/24 09/02/24 09/03/24 Range/Units 16:17 19:58 05:59 PT (10.0-12.5) sec INR (<1.2) Sodium (137-145) mmol/L Glucose (74-99) mg/dL POC Glucose (mg/dL) 189 H 154 H 122 H (70-110) mg/dL Calcium (8.4-10.2) mg/dL 09/03/24 09/03/24 09/03/24 Range/Units 07:56 07:56 11:45 PT 21.2 H (10.0-12.5) sec INR 2.1 H (<1.2) Sodium 133 L (137-145) mmol/L Glucose 141 H (74-99) mg/dL POC Glucose (mg/dL) 128 H (70-110) mg/dL Calcium 7.9 L (8.4-10.2) mg/dL
[2024-09-03 15:52] VITALS: BP 178/95; PULSE 70; TEMP 98.2
[2024-09-03] MEDS ORDERED: carvediloL 12.5 MG TAB PO SCH (17:30)
[2024-09-03] MEDS ORDERED: WARFARIN 2 MG TAB PO ONE (18:00)
--- NOTE | 2024-09-04 20:03 | CDI ---
Documentation Clarification Form Date: 09/04/24 From: ROBB Olsen Admit Date: 08/29/2024 06:05:00 PM Patient Name: Conner Scott Visit Number: [id number] Discharge Date: 09/03/2024 04:52:00 PM ATTENTION: The Clinical Documentation Specialists (CDI) and [facility] Coding Staff appreciate your assistance in clarifying documentation. Please respond to the clarification below the line at the bottom and electronically sign. The CDI & [facility] Coding staff will review the response and follow-up if needed. Please note: Queries are made part of the Legal Health Record. If you have any questions, please contact the author of this message via ITS. Doctor/Provider: Belgica Baptiste There is documentation of urine culture positive for E. Coli and Strep agalactiae group B and lab workup revealed urinalysis is cloudy, leukocyte esterase is moderate, urine white blood cells within the progress notes Additional clarification is requested. History/Risk Factors: Patient presented after a fall and was found to have atrial fibrillation, hypotension and altered mental status. Clinical Indicators: Positive urine culture Treatment: Patient is given ceftriaxone Can you please indicate a diagnosis for these abnormal urinary findings and treatment? [ @@@ ] UTI [ ] No infection, abnormal urine (constituents) only [ ] Other, please specify [ ] Unable to determine MTDD
--- NOTE | 2024-09-05 19:32 | P.DS ---
Providers Date of admission: 08/29/24 18:05 Attending physician: Belgica Baptiste MD Consults: 08/29/24 18:04 Consult Physician Urgent Consulting Provider: Hector Pennington Consult Reason/Comments: ams Do you want consulting provider notified?: Yes 08/30/24 10:11 Consult Physician Stat Consulting Provider: Hamilton Gama Consult Reason/Comments: icu management Do you want consulting provider notified?: Already Contacted 09/02/24 15:26 Consult Physician Routine Consulting Provider: Yaya Lantigua Consult Reason/Comments: L1 possible subacute fracture, lower back pain post fall Do you want consulting provider notified?: Yes Primary care physician: Jane Abreu Hospital Course: Final Diagnosis Fall with head injury like presyncopal episode from hypotension Episode of unresponsiveness felt due to hypotension Atrial fibrillation with RVR Prolonged QT interval Altered mental status unable to completely rule out TIA as there was concerns of the right sided weakness and altered mentation from family this is resolved at this time. Hypotension; likely medication effect Subacute L1 compression fracture Acute L2 and L3 compression deformity History of chronic atrial fibrillation Hx of hypertension Hyperlipidemia Diabetes mellitus type II Lower back pain Obesity Discharge Disposition Patient was stable for discharge home. Patient was cleared by cardiology. Patient will continue atorvastatin and losartan. Patient will continue with warfarin for anticoagulation and monitor INR. Patient was discharged on carvedilol 25 mg twice daily. Patient had a 7-day Holter monitor placed prior to discharge. Patient will follow-up with Dr. Ying in the cardiology office in 1 to 2 weeks. Patient was fitted for LSO brace prior to discharge will discharge home with home physical therapy and close follow-up with Dr. Aguilar'rhona in the office. Neurology did recommend an EMG nerve conduction study as an outpatient basis of the lower extremity to rule out any neuropathy and this can be done with a neuromuscular specialist at [facility]. Patient's TSH was abnormal but her T4 was normal and would recommend to repeat her thyroid panel on an outpatient basis. Patient to follow-up with PCP Dr. Jane Abreu in 1 to 2 days. Hospital Course 63-year-old female, history of hypertension, chronic atrial fibrillation, dyslipidemia, diabetes, obesity, presented to the hospital after she had a fall and hit her head on the stove. Concern as patient does take coumadin for her atrial fibrillation. She lives at home with her but he is a dispatcher tow truck and is not home very often. Earlier in the week she had told her son she was having some nausea and vomiting. Patient states she had a muscle tear in June and since has not been very active. Patients son noticed she was having confusion and seemed off. Patient had a fall at home which is suspected to be from hypotension. She did hit her head and came in to the hospital for evaluation. In the ED patient was found to be in atrial fibrillation with RVR and was placed on IV Cardizem infusion. While in ED, patient became unresponsive according to her nurse. She had been awake and alert 15 minutes prior to this episode. Her systolic blood pressure dropped down to 70. She was given fluid bolus and her systolic pressure was then 89. Blood sugar was 152. There was concern that she was staring to the left side. When she had the unresponsive episode, her son thought that she was just sleeping. Patient went for stat CT of the brain. Subsequently the systolic blood pressure was 70/36 and orders were given for Levophed and patient was to be transferred to the intensive care unit. Her EKG showed atrial fibrillation with RVR rate of 150 chest x-ray showed no evidence of active disease CT of the brain and cervical spine was basically unremarkable. Her labs showed relatively normal electrolytes except for low potassium of 3.2 troponin was a bit high her viral panel was negative. Neurology and pulmonary services were consulted. Stroke work up initiated. EEG reveals no seizure or epileptiform activity. Echocardiogram reveals EF of 55% with mild MR and mild TR and small pericardial effusion without tamponade physiology. There is a moderately dilated left atrium. Patient had a lumbar spine CT which reveals age-indeterminate central superior endplate compression deformity versus Schmorl's node at L1 there is approx imately 20% height loss centrally with no retropulsion correlate with point tenderness versus MRI. There is moderate mild multilevel degenerative disc disease. Patient did go for a brain MRI which was negative for any acute process there is age-related atrophic and chronic small vessel ischemic change. Patient went for lumbar MRI she continued to have significant weakness and was unable to stand straight up without having extreme pain in her lower back. The lumbar spine MRI reveals mild superior endplate loss of height involving L1 loss of height estimated at 20% fracture could be late subacute nature as there is no significant increase signal on STIR imaging or pathologic enhancement. There is minimal loss of height superior endplate of L2 inferior endplate of L3 with enhancement seen and mild increase signal noted on the STIR data set suggesting acute traumatic injury no evidence for mass and has been. Because of these findings spinal surgery was consulted. Follow-up with there was no need for emergent urgent orthopedic surgical intervention and patient was recommended for an LSO brace and physical therapy and to follow-up with Dr. Lantigua in the office. INR 2.1. Please see medication reconciliation for a list of current medications. Thank you for allowing us to participate in the care of this patient. The impression and plan of care has been dictated by Joyce Esparza, Nurse Practitioner as directed. Dr. Shorty MD I have performed a history and physical examination and medical decision making of this patient, discussed the same with the dictator, and agree with the dictators assessment and plan as written, documented as a scribe. Based on total visit time, I have performed more than 50% of this visit. Patient Condition at Discharge: Fair Plan - Discharge Summary Discharge Rx Participant: Yes New Discharge Prescriptions: New carvediloL [Coreg*] 25 mg PO BID-W/MEALS #30 tab hydrALAZINE HCL 25 mg PO BID-W/MEALS #60 tab Continue traZODone HCL 300 mg PO HS Warfarin [Coumadin] 5 mg PO DAILY metFORMIN HCL [Glucophage] 1,000 mg PO BID-W/MEALS Simvastatin 40 mg PO HS Losartan Potassium 100 mg PO DAILY glyBURIDE [Diabeta] 5 mg PO BID Semaglutide [Ozempic] 2 mg SQ JIMENEZ Discontinued cloNIDine HCL [Catapres] 0.3 mg PO DAILY atenoloL [Tenormin] 50 mg PO DAILY hydroCHLOROthiazide 25 mg PO DAILY hydrALAZINE HCL [Apresoline] 50 mg PO BID-W/MEALS Discharge Medication List Losartan Potassium 100 mg PO DAILY 08/29/24 [History] Semaglutide [Ozempic] 2 mg SQ JIMENEZ 08/29/24 [History] Simvastatin 40 mg PO HS 08/29/24 [History] Warfarin [Coumadin] 5 mg PO DAILY 08/29/24 [History] glyBURIDE [Diabeta] 5 mg PO BID 08/29/24 [History] metFORMIN HCL [Glucophage] 1,000 mg PO BID-W/MEALS 08/29/24 [History] traZODone HCL 300 mg PO HS 08/29/24 [History] carvediloL [Coreg*] 25 mg PO BID-W/MEALS #30 tab 09/03/24 [Rx] hydrALAZINE HCL 25 mg PO BID-W/MEALS #60 tab 09/03/24 [Rx] Follow up Appointment(s)/Referral(s): Allison Ying MD [STAFF PHYSICIAN] - 2 Weeks (Office to call patient with an appointment date and time) Yaya Lantigua DO [Doctor of Osteopathic Medicine] - As Needed Jane Abreu MD [Primary Care Provider] - 1-2 days Ambulatory/Diagnostic Orders: Basic Metabolic Panel [LAB.AMB] Location: None Selected Complete Blood Count w/diff [LAB.AMB] Time Frame: 3 Days, Location: None Select ed Magnesium [LAB.AMB] Location: None Selected Prothrombin Time INR [LAB.AMB] Location: None Selected Patient Instructions/Handouts: Back Pain (GEN) Activity/Diet/Wound Care/Special Instructions: Wear LSO brace as prescribed with all standing activities Neurology recommending EMG with nerve conduction on discharge Need to follow up with neuromuscular specialist out of [facility]. Discharge Disposition: HOME WITH HOME HEALTH SERVICES
== END 2024-09-03 16:52 | disposition home health service (06) | DRG 281 ==
LOC: EC 14:31 → 3SCARD 18:05 → 2SICU 08-30 10:21 → 3SCARD 08-31 20:59
PROVIDERS: ADMIT Internal Medicine; ATTEND Internal Medicine
DX: I48.21 Permanent atrial fibrillation (principal); M48.56XA Collapsed vertebra, not elsewhere classified, lumbar region, initial encounter for fracture; I21.A1 Myocardial infarction type 2; S09.90XA Unspecified injury of head, initial encounter; E11.42 Type 2 diabetes mellitus with diabetic polyneuropathy; I10 Essential (primary) hypertension; E66.9 Obesity, unspecified; N39.0 Urinary tract infection, site not specified; R40.2242 Coma scale, best verbal response, confused conversation, at arrival to emergency department; Z68.30 Body mass index [BMI] 30.0-30.9, adult; I95.2 Hypotension due to drugs; T46.1X5A Adverse effect of calcium-channel blockers, initial encounter; E78.00 Pure hypercholesterolemia, unspecified; W01.0XXA Fall on same level from slipping, tripping and stumbling without subsequent striking against object, initial encounter; R40.2362 Coma scale, best motor response, obeys commands, at arrival to emergency department; R40.2142 Coma scale, eyes open, spontaneous, at arrival to emergency department; Y92.000 Kitchen of unspecified non-institutional (private) residence as the place of occurrence of the external cause; Z79.01 Long term (current) use of anticoagulants; Z79.84 Long term (current) use of oral hypoglycemic drugs; Z79.899 Other long term (current) drug therapy
CPT/HCPCS: 36415; 70450; 70486; 70496; 70498; 70551; 71045; 72125; 72131; 72158; 72170; 80048; 80053; 81001; 82607; 82746; 83036; 83735; 84132; 84439; 84443; 84484; 85025; 85027; 85610; 85730; 87077; 87086; 87186; 87636; 93005; 93225; 93306; 95816; 96365; 96366; 96375; 99291